=== PATIENT | female | born 1950 | race Caucasian/White ===

== ENCOUNTER → 2017-05-26 | Day surgery (SDC) | payer OTHER ==
--- OUTSIDE RECORDS SUMMARY | 2017-05-26 09:37 | XMS REPORT | Clinical Summary ---
:1950 Author Organization [facility] Address [address] [place] [address] Phone Care Team Providers Name Role Phone Unavailable Primary Care Provider Unavailable Allergies Active Allergy Reactions Severity Noted Date Comments Sumatriptan Succinate 05/01/2016 Morphine 05/01/2016 Current Medications Prescription Sig. Disp. Refills Start Date End Date Status Missing or Take 2.5 mg by mouth 2 Active Non-Formulary (two) times daily Medication eliquis . allopurinol (ZYLOPRIM) Take 100 mg by mouth Active 100 MG tablet daily. amLODIPine (NORVASC) Take 5 mg by mouth Active 10 MG tablet daily. thyroid, pork, 90 mg Take 30 mg by mouth Active Tab daily. imatinib (GLEEVEC) 100 Take 100 mg by mouth 3 Active MG tablet (three) times daily. Missing or Inject 1 mg Active Non-Formulary subcutaneously daily Medication victosa. omeprazole (PRILOSEC) Take 40 mg by mouth Active 40 MG capsule daily. phentermine 30 MG Take 30 mg by mouth Active capsule every morning termeric . lactobacillus Take 1 capsule by Active rhamnosus, GG, mouth daily. (CULTURELLE) 10 billion cell capsule HYDROcodone-acetaminop Take 1 tablet by mouth Active hen (NORCO 10-325) every 6 (six) hours as 10-325 mg per tablet needed for Pain. Active Problems Problem Noted Date Anemia associated with stage 3 chronic renal failure 05/30/2016 Encounters Date Type Specialty Care Team Description 07/14/2016 Procedure visit Oncology Chitra Andrea MD Anemia associated with Fawn Pretty RN stage 3 chronic renal failure (Primary Dx) 06/30/2016 Procedure visit Oncology Chitra Andrea MD Anemia associated with Fawn Pretty RN stage 3 chronic renal failure (Primary Dx) 06/16/2016 Procedure visit Oncology Chitra Andrea MD Anemia associated with Fawn Pretty RN stage 3 chronic renal failure (Primary Dx) 05/30/2016 Procedure visit Oncology Chitra Andrea MD Anemia associated with Alessandra Elder RN stage 3 chronic renal failure (Primary Dx) after 05/25/2016 Social History Tobacco Use Types Packs/Day Years Used Date Never Smoker Sex Assigned at Date Recorded Not on file Last Filed Vital Signs Vital Sign Reading Time Taken Blood Pressure 136/75 06/16/2016 9:54 AM CDT Pulse 64 06/16/2016 9:54 AM CDT Temperature 36.8 C (98.2 F) 06/16/2016 9:54 AM CDT Respiratory Rate 18 06/16/2016 9:54 AM CDT Oxygen Saturation - - Inhaled Oxygen Concentration - - Weight 81.6 kg (180 lb) 06/16/2016 9:54 AM CDT Height 167.6 cm (5' 6") 06/16/2016 9:54 AM CDT Body Mass Index 29.05 06/16/2016 9:54 AM CDT Plan of Treatment Health Maintenance Due Date Last Done Comments INFLUENZA VACCINE 11/23/2016 Results POCT-HEMATOCRIT (07/14/2016 9:31 AM)Only the most recent of4 resultswithin the time period is included. Component Value Ref Range POC-Hematocrit 32 (L)Comment: TESTED AT [address] 36 - 45 % [place] [address] Specimen Performing Laboratory Blood [address] [address] POCT-HEMOGLOBIN (07/14/2016 9:31 AM)Only the most recent of4 resultswithin the time period is included. Component Value Ref Range POC-Hemoglobin 10.9 (L)Comment: TESTED AT [address] 12.0 - 15.0 g/ dL [place] [address] Specimen [place] [address] Iron, TIBC, % sat. (without ferritin) (07/14/2016 9:30 AM)Only the most recent of2 resultswithin the time period is included. Component Value Ref Range Iron 78 40 - 160 ug/dL TIBC 253 250 - 450 ug/dL Iron % Saturation 31 20 - 55 % Specimen Performing Laboratory Blood [address] [address] Ferritin (07/14/2016 9:30 AM)Only the most recent of2 resultswithin the time period is included. Component Value Ref Range Ferritin 63 5 - 275 ng/mL Specimen Performing Laboratory Blood [address] [address] after 05/25/2016
--- OUTSIDE RECORDS SUMMARY | 2017-05-26 09:37 | XMS REPORT | Clinical Summary ---
:1950 Author Organization [facility] Address [address] [place] [address] Care Team Providers Name Role Phone LugoRahul hobson Cameron THOMAS Primary Care Provider Allergies Active Allergy Reactions Severity Noted Date Comments Sumatriptan Succinate 10/10/2015 HTN Sulfa (Sulfonamide Antibiotics) 12/04/2016 Current Medications Prescription Sig. Disp. Refills Start Date End Date Status allopurinol Take 100 mg 3 09/14/2015 Active (ZYLOPRIM) 100 MG by mouth once tablet daily. amLODIPine Take 5 mg by 3 09/14/2015 Active (NORVASC) 5 MG mouth once tablet daily. ELIQUIS 2.5 mg 09/11/2015 Active tablet NOVOTWIST 32 gauge 09/18/2015 Active x 1/5" needle ARMOUR THYROID 60 09/10/2015 Active mg tablet dicyclomine Take 1 120 capsule 11 12/04/2016 12/04/2017 Active (BENTYL) 10 MG capsule (10 capsule mg total) by mouth 4 (four) times a day before meals and nightly. imatinib (GLEEVEC) Take 3 270 tablet 3 05/13/2017 08/11/2017 Active 100 MG chemo tablets (300 tabletIndications: mg total) by Stromal tumor of mouth daily digestive system for 90 days. GLEEVEC 100 mg 09/13/2015 03/19/2017 Discontinued chemo tablet imatinib (GLEEVEC) Take 3 90 tablet 6 09/29/2016 10/29/2016 100 MG chemo tablets (300 tablet mg total) by mouth daily for 30 days. GLEEVEC 100 mg Take 3 90 tablet 2 03/19/2017 03/19/2017 Discontinued chemo tablet tablets (300 mg total) by mouth daily for 90 days. imatinib (GLEEVEC) Take 3 270 tablet 3 03/19/2017 05/13/2017 Discontinued 100 MG chemo tablets (300 tabletIndications: mg total) by Stromal tumor of mouth daily digestive system for 90 days. Active Problems Problem Noted Date Pain 12/01/2016 Epigastric pain 11/26/2015 Malignant GIST 10/10/2015 CKD (chronic kidney disease) 10/10/2015 Pulmonary nodule 10/10/2015 Encounters Date Type Specialty Care Team Description 05/19/2017 Telephone Oncology Nate Mitchell MD 05/13/2017 Orders Only Oncology Clarence Stromal tumor of DANTE Gatestennis player system 05/13/2017 Telephone Oncology Nate Mitchell MD 04/27/2017 Telephone Oncology Nate Mitchell MD 04/15/2017 Telephone Oncology Nate Mitchell MD 03/19/2017 Telephone Oncology David Morris RN 03/19/2017 Orders Only Oncology Shiv Kidd Stromal tumor of DANTE Hernandez digestive system (Primary Dx) 03/18/2017 Telephone Oncology Nate Mitchell MD 02/10/2017 Telephone Oncology Nate Mitchell MD 12/04/2016 Hospital Encounter Radiology Nate Mitchell MD gastrointestinal stromal tumor, unspecified site 12/04/2016 Office Visit Gastroenterology Kristofer, Lower abdominal pain Bhavesh Nieves MD (Primary Dx) 12/01/2016 Lab Lab Nate Mitchell MD gastrointestinal stromal tumor, unspecified site 12/01/2016 Office Visit Oncology Nate Mitchell Pulmonary nodule (Primary Dx); MD Nayan Malignant gastrointestinal stromal tumor, unspecified site; Epigastric pain; Stage 3 chronic kidney disease; Pain 12/01/2016 Orders Only Oncology Jia Wells, Malignant MA gastrointestinal stromal tumor, unspecified site (Primary Dx) 11/21/2016 Telephone Oncology David Morris RN 11/07/2016 Office Visit General Surgery Darby Gomez, Lower abdominal pain (Primary Dx) 09/29/2016 Orders Only Oncology Caridad Mix RN 09/29/2016 Telephone Oncology Nate Mitchell MD 09/29/2016 Telephone Oncology Nate Mitchell MD 08/18/2016 Telephone Oncology Nate Mitchell MD 07/10/2016 Telephone Oncology Nate Mitchell MD 06/16/2016 Telephone Oncology Nate Mitchell MD 06/13/2016 Refill Oncology Nate Mitchell MD after 05/25/2016 Social History Tobacco Use Types Packs/Day Years Used Date Never Smoker Alcohol Use Drinks/Week oz/Week Comments No Sex Assigned at Date Recorded Not on file Last Filed Vital Signs Vital Sign Reading Time Taken Blood Pressure 120/69 12/04/2016 11:38 AM CDT Pulse 79 12/04/2016 11:38 AM CDT Temperature 36.8 C (98.3 F) 12/01/2016 12:07 PM CDT Respiratory Rate - - Oxygen Saturation - - Inhaled Oxygen Concentration - - Weight 79.8 kg (176 lb) 12/04/2016 11:38 AM CDT Height 167.6 cm (5' 6") 12/04/2016 11:38 AM CDT Body Mass Index 28.41 12/04/2016 11:38 AM CDT Plan of Treatment Date Type Specialty Care Team Description 11/30/2017 Office Visit Oncology Nate Mitchell MD [address] [address] Health Maintenance Due Date Last Done Comments PAP SMEAR 1973 COLONOSCOPY 2002 MAMMOGRAM 2002 ZOSTER VACCINE 2012 INFLUENZA VACCINE 09/23/[address] Chest Wo Contrast (12/04/2016 2:08 PM) Specimen [place] [address] Narrative EXAMINATION: CT CHEST WO CONTRAST CLINICAL HISTORY: C49.A0 Gastrointestinal stromal tumorunspecified site, GIST TECHNIQUE: Multiple axial images of the chest were obtained without intravenous contrast. The lack of intravenous contrast reduces the sensitivity of detecting solid organ disease and evaluating vasculature. Sagittal and coronal computerized reformatted images were also obtained.Automatic exposure control or iterative reconstruction techniques used to reduce dose. COMPARISON: 11/10/2008 FINDINGS: 1.No significant mediastinal or hilar lymphadenopathy. No significant pleural or pericardial effusions. Postsurgical changes noted in the proximal stomach. Several renal lesions are noted, not well characterized without contrast. 2.A couple of stable subpleural nodules are again noted likely representing intraparenchymal nodes without significant change. Calcified granuloma also noted. No suspicious lung mass identified. Central airways are patent. IMPRESSION: 1.No evidence for pulmonary metastatic disease. [facility]-[id number] Procedure Note Hm Interface, Radiology Results Incoming - 12/04/2016 3:31 PM CDT EXAMINATION: CT CHEST WO CONTRAST CLINICAL HISTORY: C49.A0 Gastrointestinal stromal tumor unspecified site, GIST TECHNIQUE: Multiple axial images of the chest were obtained without intravenous contrast. The lack of intravenous contrast reduces the sensitivity of detecting solid organ disease and evaluating vasculature. Sagittal and coronal computerized reformatted images were also obtained.Automatic exposure control or iterative reconstruction techniques used to reduce dose. COMPARISON: 11/10/2008 FINDINGS: 1. No significant mediastinal or hilar lymphadenopathy. No significant pleural or pericardial effusions. Postsurgical changes noted in the proximal stomach. Several renal lesions are noted, not well characterized without contrast. 2. A couple of stable subpleural nodules are again noted likely representing intraparenchymal nodes without significant change. Calcified granuloma also noted. No suspicious lung mass identified. Central airways are patent. IMPRESSION: 1. No evidence for pulmonary metastatic disease. [facility]-[id number] Estimated GFR (12/01/2016 12:52 PM) Component Value Ref Range GFR Non Af Amer 18 (A) mL/min/1.73 m2 GFR Af Amer 22 (A) mL/min/1.73 m2 Comment: Chronic kidney disease: <60 mL/min/1.73m2 Kidney failure: <15 mL/min/1.73m2 The estimated GFR is calculated from the IDMS-traceable Modification of Diet in Renal Disease Equation. The accuracy of the calculation is poor when the creatinine is normal. Calculated values >90 mL/min/1.73m2 are not reported. This equation has not been validated in children (<18 years), women, the elderly (>70 years), or ethnic groups other than Caucasians and Americans. Specimen Performing Laboratory Plasma specimen [facility] DEPARTMENT OF PATHOLOGY AND GENOMIC MEDICINE [address] [place] [address] [place] [address] CBC with platelet and differential (12/01/2016 12:52 PM) Component Value Ref Range WBC 6.22 4.50 - 11.00 k/uL RBC 2.66 (L) 4.20 - 5.50 m/uL HGB 9.2 (L) 12.0 - 16.0 g/dL HCT 28.0 (L) 37.0 - 47.0 % MCV 105.3 (H) 82.0 - 100.0 fL MCH 34.6 (H) 27.0 - 34.0 pg MCHC 32.9 31.0 - 37.0 g/dL RDW - SD 55.1 (H) 37.0 - 55.0 fL MPV 10.7 8.8 - 13.2 fL Platelet count 241 150 - 400 k/uL Nucleated RBC 0.00 /100 WBC Neutrophils 54.0 39.0 - 69.0 % Lymphocytes 29.4 25.0 - 45.0 % Monocytes 10.0 0.0 - 10.0 % Eosinophils 5.0 0.0 - 5.0 % Basophils 1.4 (H) 0.0 - 1.0 % Immature granulocytes 0.2Comment: "Immature granulocytes" 0.0 - 1.0 % (promyelocytes, myelocytes, metamyelocytes) Specimen Performing Laboratory Blood [facility] DEPARTMENT OF PATHOLOGY AND GENOMIC MEDICINE [address] [place] [address] Lipase level (12/01/2016 12:52 PM) Component Value Ref Range Lipase 70 (H) 13 - 60 U/L Specimen Performing Laboratory Plasma specimen [facility] DEPARTMENT OF PATHOLOGY AND [address] [address] Amylase level (12/01/2016 12:52 PM) Component Value Ref Range Amylase 34 13 - 53 U/L Specimen Performing Laboratory Plasma specimen [facility] DEPARTMENT OF PATHOLOGY AND GENOMIC MEDICINE [address] [place] [address] Comprehensive metabolic panel (12/01/2016 12:52 PM) Component Value Ref Range Sodium 138 135 - 148 mEq/L Potassium 4.8 3.5 - 5.0 mEq/L Chloride 103 98 - 112 mEq/L CO2 20 (L) 24 - 31 mEq/L Anion gap 15 7 - 15 mEq/L Comment: Starting from May , anion gap calculation no longer incorporates potassium. Please note the change. BUN 46 (H) 8 - 23 mg/dL Creatinine 2.7 (H) 0.5 - 0.9 mg/dL Glucose 120 (H) 65 - 99 mg/dL Calcium 9.4 8.8 - 10.2 mg/dL Protein 6.7 6.3 - 8.3 g/dL Comment: Warren 4.6-7.0 g/dL 1 week 4.4-7.6 g/dL 7 months-1year5.1-7.3 g/dL 1-2 years5.6-7.5 g/dL >3 years6.0-8.0 g/dL 18-150 6.3-8.3 g/dL Albumin 3.8 3.5 - 5.0 g/dL A/G ratio 1.3 0.7 - 3.8 Alkaline phosphatase 57 35 - 104 U/L AST 17 10 - 35 U/L ALT 11 5 - 50 U/L Total bilirubin 0.4 0.0 - 1.2 mg/dL Specimen Performing Laboratory Plasma specimen [facility] DEPARTMENT OF PATHOLOGY AND GENOMIC MEDICINE [address] [place] [address] after 05/25/2016 Insurance Payer Benefit Plan / Group Subscriber ID Type Phone Address [employer] PPO OPEN CHOICE xxxxxxxxxx PPO Home: [id number] [phone] [place] [id number]
--- OUTSIDE RECORDS SUMMARY | 2017-05-26 09:37 | XMS REPORT ---
:1950 Author Organization [facility] Address [address] [place] [address] Dr. Dasilva [address] [place] [address] Care Team Providers Name Role Phone TY ZIEGLER TEDDY Unavailable Unavailable Problems This patient has no known problems. Allergies, Adverse Reactions, Alerts This patient has no known allergies or adverse reactions. Medications This patient has no known medications. Results Test Description Test Time Test Comments Text Results Atomic Results Result Comments FERRITIN 2016-07-14 11:31:00 Test Item Value Reference Range Comments FERRITIN (BEAKER) (test neka=144) 63 ng/mL 5-275 IRON, TIBC, % SAT. (WITHOUT FERRITIN)2016-07-14 11:11:00 Test Item Value Reference Range Comments IRON (BEAKER) (test mgue=522) 78 ug/dL 40-160 TOTAL IRON BINDING CAPACITY (BEAKER) (test 253 ug/dL 250-450 enui=653) IRON % SATURATION (2) (BEAKER) (test xeat=6076) 31 % 20-55 [id number] 09:37:00 Test Item Value Reference Range Comments POC-HEMATOCRIT (BEAKER) (test 32 % 36-45 [address] AT [address] jnrb=0272) [facility] [address] [id number] 09:37:00 Test Item Value Reference Range Comments POC-HEMOGLOBIN (BEAKER) 10.9 g/dL 12.0-15.0 [address] (test rfxm=9251) [facility] [address] [id number] 09:49:00 Test Item Value Reference Range Comments POC-HEMATOCRIT (BEAKER) (test 30 % 36-45 TESTED AT [address] rsnt=2126) [facility] [address] [id number] 09:49:00 Test Item Value Reference Range Comments POC-HEMOGLOBIN (BEAKER) 10.2 g/dL 12.0-15.[address] (test anjh=0998) [place] [id number] 12:15:00 Test Item Value Reference Range Comments FERRITIN (BEAKER) (test ydzs=117) 49 ng/mL 5-275 Effective 01/10/2014: Reference Range ChangeNew: Male 5-275 Previous: Male 22-322 Female 5-275 Female 10-291IRON, TIBC, % SAT. ( WITHOUT FERRITIN)2016-06-16 11:55:00 Test Item Value Reference Range Comments IRON (BEAKER) (test fbvq=624) 46 ug/dL 40-160 TOTAL IRON BINDING CAPACITY (BEAKER) (test 271 ug/dL 250-450 bcex=240) IRON % SATURATION (2) (BEAKER) (test xbmi=1914) 17 % 20-55 [id number] 10:00:00 Test Item Value Reference Range Comments POC-HEMATOCRIT (BEAKER) (test 32 % 36-45 TESTED AT [address] timy=3639) [place] [address] [id number] 10:00:00 Test Item Value Reference Range Comments POC-HEMOGLOBIN (BEAKER) 10.9 g/dL 12.0-15.[address] (test zedg=0900) [place] [address] [id number] 10:08:00 Test Item Value Reference Range Comments POC-HEMATOCRIT (BEAKER) (test 34 % 36-45 TESTED AT [address] zoik=5458) [place] [address] [id number] 10:08:00 Test Item Value Reference Range Comments POC-HEMOGLOBIN (BEAKER) 11.6 g/dL 12.0-15.[address] (test oubi=0406) [place] [address] [id number] 11:38:00 Test Item Value Reference Range Comments POC-HEMATOCRIT (BEAKER) (test 27 % 36-45 TESTED AT [address] azcw=7480) [place] [address] [id number] 11:38:00 Test Item Value Reference Range Comments POC-HEMOGLOBIN (BEAKER) 9.2 g/dL 12.0-15.0 [address] (test mjan=3503) [place] [address] [id number] 16:32:00 Test Item Value Reference Range Comments FERRITIN (BEAKER) (test vqif=684) 64 ng/mL 5-275 Effective 01/10/2014: Reference Range ChangeNew: Male 5-275 Previous: Male 22-322 Female 5-275 Female 10-291IRON, TIBC, % SAT. ( WITHOUT FERRITIN)2016-05-01 14:37:00 Test Item Value Reference Range Comments IRON (BEAKER) (test xvhw=982) 97 ug/dL 40-160 TOTAL IRON BINDING CAPACITY (BEAKER) (test 258 ug/dL 250-450 hpij=846) IRON % SATURATION (2) (BEAKER) (test dfqd=5695) 38 % 20-55 [id number] 09:55:00 Test Item Value Reference Range Comments POC-HEMATOCRIT (BEAKER) (test 30 % 36-45 TESTED AT [address] uqqx=4269) [place] [address] [id number] 09:55:00 Test Item Value Reference Range Comments POC-HEMOGLOBIN (BEAKER) 10.2 g/dL 12.0-15.0 [address] (test wopz=0573) [place] [address]

== ENCOUNTER 2021-12-31 19:18 | Inpatient (IN) | payer OTHER ==
--- OUTSIDE RECORDS SUMMARY | 2021-12-31 19:26 | XMS REPORT | Continuity of Care Document ---
:1950 Author Organization [facility] t Address [address] [place] [address] Care Team Providers Name Role Phone HUI KIRK Primary Care Physician Unavailable Sajan Araujo Attending Clinician Unavailable Ely Mcdowell Attending Clinician Unavailable Michael Malone MD Attending Clinician Laya Correia CPhT Attending Clinician Unavailable HUI KIRK Attending Clinician Unavailable Joe Fleming Attending Clinician Doctor Unassigned, [place] Attending Clinician Unavailable CARMINA BUTLER Attending Clinician Unavailable ERCLAIR_R Attending Clinician Unavailable KISHORE GUAMAN Attending Clinician Unavailable Alma Duke Attending Clinician TEDDY TY Attending Clinician Unavailable HUI KIRK Admitting Clinician Unavailable ERCLAIR_Trista Admitting Clinician Unavailable Payers Payer Name Policy Type Policy Effective Date Expiration Date Sour ce Number HUMANA MEDICARE 53 [id number] 2020 [facility]an 00:00:[address] [facility] MEDICARE NOVITAS [id number] [facility] MEDICARE NOVITAS MB [id number] [facility] MEDICARE NOVITAS MB [id number] [facility] MEDICARE NOVITAS MB [id number] [facility] HUMANA MEDICARE [id number] 2020 ADV 00:00:00 MEDICARE NOVITAS MB [id number] [facility] HUMANA MEDICARE C1 [id number] [facility] kieran - [facility] MEDICARE NOVITAS MB [id number] [facility] HUMANA MEDICARE C1 [id number] [facility] - [facility] HUMANA MEDICARE C1 [id number] [facility]an - [facility] HUMANA MEDICARE C1 [id number] [facility] k[facility]an - [facility] HUMANA MEDICARE C1 [id number] [facility] kieran - [facility] MEDICARE B-[place]: [id number] 2017 NOVITAS SOLUTIONS 00:00:00 HUMANA - GOLD [id number] PLUS (MEDICARE REPLACEMENT HMO) AETNA (MEDICARE [id number] 2019 REPLACEMENT HMO) 00:00:00 AETNA HMO POS [id number] 2015 2020 QPOS 00:00:00 00:00:00 Problems Condition Condition Condition Status Onset Resolution Last Treating Co mments Source Name Details Category Date Date Treatment Clinician Date [place]ol[place]o Choledocho Disease Active 2020-[address] lithiasis lithiasis 0-04 Luke s 00:00: Medical 00 Center Liver Liver Disease Active [facility] metastases metastases 10-03 st 00:00: Hospita 00 l Gastritis Gastritis Disease Active Met hodi 10-03 st 00:00: Hospita 00 l Pneumoniti Pneumoniti Disease Active M ethodi s s 10-03 st 00:00: Hospita 00 l Reflux Reflux Disease Active Methodi esophagiti esophagiti 10-19 st s s 00:00: Hospita 00 l Deep vein Deep vein Disease Active Met hodi thrombosis thrombosis 03-22 st (DVT) of (DVT) of 00:00: Hospit a proximal proximal 00 l lower lower extremity extremity Pain Pain Disease Active 2016-02 [facility] 0-09 [facility] 00:00: Hospita 00 l Anemia Anemia Disease Active [facility] associated associated 05-30 Calu kes with stage with stage 00:00: Me dical 3 chronic 3 chronic 00 Cent er renal renal failure failure 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 loss Medical (chronic) Center [id number] Body mass Problem Active Com mon index Spirit [BMI] - CHI 30.0-30.9, [facility] [id number] Other Problem Active Common obesity Spirit due to - CHI excess [facility] Chronic Anemia Problem Active Common renal associated Spirit failure with - CHI syndrome chronic renal [facility] failure, Medical unspecifie Center d stage [id number] Localized Problem Active Comm on osteoporos Spirit is without - CHI current [facility] al Medical fracture Center [id number] Vitamin D Problem Active Comm on deficiency Spirit - [facility] [id number] Hyperparat Problem Active Com mon hyroidism Spirit - [facility] [id number] GERD Problem Active Common without Spirit esophagiti - CHI [facility] Chronic Chronic Problem Active Common kidney kidney Spirit disease disease, - CHI stage 4 stage IV (severe) [facility] [id number] Essential Problem Active Comm on (primary) Spirit hypertensi - CHI on [facility] [id number] Irritable Problem Active Comm on bowel Spirit syndrome - CHI without [facility] diarrhea [facility] Anemia in Anemia in Problem Active Com mon chronic chronic Spirit kidney kidney - CHI disease disease [facility] Malignant Malignant Problem Active Com mon neoplasm neoplasm Spirit of body of of body of - CHI stomach stomach [facility] 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 chronic [facility] kidney Center disease [id number] Primary Problem Active Comm on osteoarthr Spirit itis of - CHI right knee [facility] Hypothyroi Hypothyroi Problem Active C ommon dism dism Spirit - [facility] [id number] Open-angle Problem Active Com mon glaucoma, Spirit mild - CHI stage, St unspecifie [facility] open-angle glaucoma type [id number] Arthrosis Problem Active Com mon of first Spirit carpometac - CHI arpal joint [facility] Chronic Other Problem Active Common pain chronic [facility] pain - [facility] [id number] Renal Problem Active Common cyst, left Spirit - [facility] [id number] History of Problem Active Co mmon DVT of Spirit lower - CHI extremity [facility] [id number] 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) [facility] [id number] Age-relate Problem Active Com mon d Spirit osteoporos - CHI is without [facility] pathologic [facility] fracture Allergies, Adverse Reactions, Alerts Allergy Allergy Status Severity Reaction(s) Onset Inactive Treating Comm ents Source Name Type Date Date Clinician Morphine Propensi Active Rash Univer s ty to 10-31 ity of adverse 00:00: [place] reaction Medical s Branch MORPHINE DRUG Active Rash Univers INGREDI 10-31 ity of 00:00: [place] 00 Medical Branch Sumatrip Propensi Active Hypertension Univers romero ty to 11-08 ity of adverse 00:: [place] reaction Medical s Branch SUMATRIP DRUG Active HYPERTENSION Un cl ROMERO INGREDI 11-08 ity of 00:00: [place] 00 Medical Branch Sulfa Propensi Active 2016-02 Methodi (Sulfona ty to 0-12 [facility] adverse 00:00: Hospita Antibiot reaction 00 l ics) s to drug SUMATRIP Allergy Active [facility] ROMERO 309 SUCCINAT 00:00: E 00 MORPHINE Allergy Active [facility] 05-01 00:00: 00 Sumatrip Propensi [facility]ero ty to 05-01 [facility] Succinat adverse 00:00: Medical e reaction 00 Center s Morphine Propensi Active [facility] ty to 05-01 [facility] adverse 00:00: Medical reaction 00 Center s Morphine Propensi Active Method i ty to 05-01 st adverse 00:00: Hospita reaction 00 l s to drug Sumatrip Propensi Active HTN Method i romero ty to 8 st Succinat adverse 00:00: Hospita e reaction 00 l s to drug sumatrip sumatrip Active Unknown Commo n romero romero [facility] morphine morphine Active Unknown Commo n [facility] Family History Family Member Diagnosis Comments Start Date Stop Date Source Natural father [facility] Natural [facility] Social History Social Habit Start Date Stop Date Quantity Comments Source History of Common [facility] - Tobacco Use [facility] Alcohol intake 2020-10-03 2020-10-03 Current [facility] 00:00:00 00:00:00 non-drinker of Hospital alcohol (finding) Tobacco use and 2017-11-30 2017-11-30 Smokeless tobacco [facility] exposure 00:00:00 00:00:00 non-user Hospital Sex Ass[birth year] At [birth year] [facility] 00:00:00 00:00:00 Hospital Smoking Status Start Date Stop Date Source Never Smoker [facility] Unknown if ever smoked [facility] Medications Ordered Filled Start Stop Current Ordering Indication Dosage Frequency Signature Comments Components Source Medication Medication Date Date Medication? Clinician (SIG) Name Name Amoxicillin Amoxicillin 202- No 1{table BID Amoxicilli -Pot -Pot 6-30 07-10 t} n-Pot Clavulanate Clavulanate 00:00: 00:00 Clavulanat 875-125 MG 875-125 MG 00 :00 e 875-125 MG Gleevec 100 Gleevec 100 2020-02 No 1{table QD Gleevec MG MG 1-19 t} 100 MG 00:00: 00 Gleevec 100 Gleevec 100 2020-02 No 1{table QD Gleevec MG MG 1-19 t} 100 MG 00:00: 00 Gleevec 100 Gleevec 100 2020-02 No 1{table QD Gleevec MG MG 1-19 t} 100 MG 00:00: 00 Gleevec 100 Gleevec 100 2020-02 No 1{table QD Gleevec MG MG 1-19 t} 100 MG 00:00: 00 Gleevec 100 Gleevec 100 2020-02 No 1{table QD Gleevec MG MG 1-19 t} 100 MG 00:00: 00 Gleevec 100 Gleevec 100 2020-02 No 1{table QD Gleevec MG MG 1-19 t} 100 MG 00:00: 00 Gleevec 100 Gleevec 100 2020-02 No 1{table QD Gleevec MG MG 1-19 t} 100 MG 00:00: 00 Gleevec 100 Gleevec 100 2020-02 No 1{table QD Gleevec MG MG 1-19 t} 100 MG 00:00: 00 Gleevec 100 Gleevec 100 2020-02 No 1{table QD Gleevec MG MG 1-19 t} 100 MG 00:00: 00 Gleevec 100 Gleevec 100 2020-02 No 1{table QD Gleevec MG MG 1-19 t} 100 MG 00:00: 00 Missing or 2020-02 Yes 2.5mg Q.5D Take 2.[address] Non-Formula 0-07 mg by [facility] ry 13:47: mouth 2 Medical Medication 35 (two) Center times daily eliquis . allopurinol 2020-02 Yes 100mg QD Take [address] (ZYLOPRIM) 0-07 mg by [facility] 100 MG 13:47: mouth Medical tablet 35 daily. [place] amLODIPine 2020-02 Yes 5mg QD Take [address] (NORVASC) 0-07 by mouth [facility] 10 MG 13:47: daily. Medical tablet 35 Center thyroid, 2020-02 Yes 30mg QD Take [address] pork, 90 mg 0-07 by mouth Luke s Tab 13:47: daily. Medical 35 Center imatinib 2020-02 Yes 100mg [id number] Take [address] (GLEEVEC) 0-07 [id number] mg by Chris es 100 MG 13:47: 3D mouth 3 Medical tablet 35 (three) Center times daily. Missing or 2020-02 Yes 1mg QD Inject [address] Non-Formula 0-07 mg [facility] ry 13:47: subcutaneo Medical Medication [address] victosa. omeprazole 2020-02 Yes 40mg QD Take [address] (PRILOSEC) 0-07 by mouth [facility] 40 MG 13:47: daily. Medical capsule 35 Center phentermine 2020-02 Yes 30mg QD Take [address] 30 MG 0-07 by mouth [facility] capsule 13:47: every Medical 35 morning Center termeric . lactobacill 2020-02 Yes 1{capsu QD Take [address] us 0-07 le} capsule by Lumemo rhamnosus, 13:47: mouth Medica l GG, 35 daily. Center ([facility] ) 10 billion cell capsule HYDROcodone 2020-02 Yes 1{tbl} Take [address] -acetaminop 0-07 tablet by Chris es hen (NORCO 13:47: mouth Medica l 10-325) 35 every 6 Center 10-325 mg (six) per tablet hours as needed for Pain. Mupirocin 2 Mupirocin 2 2020- No 1{appli BID Mupirocin % % 11-15 cation} 2 % 00:00: 00:00 00 :00 Mupirocin 2 Mupirocin 2 2020- No 1{appli BID Mupirocin % % 11-15 cation} 2 % 00:00: 00:00 00 :00 imatinib 2021- No [id number] 200mg QD Take 2 Methodi (Gleevec) 11-[address] 100 MG 00:00: 04:59 (200 mg Hospita chemo 00 :00 total) by l tablet mouth daily. Vibramycin Vibramycin 2020- No 1{capsu QD Vibramycin 100 MG 100 MG 11-08 le} 100 MG 00:00: 00:00 00 :00 traMADol traMADol 2020- No 1{table QD traMADol HCl 50 MG HCl 50 MG 11-08 t_as_ne HCl 50 MG 00:00: 00:00 eded} 00 :00 amoxicillin 2020- No 1{tbl} 1 tablet, Univers -clavulanat 10-31 Oral, ity of e 18:00: 17:17 ONCE, 1 [place] (AUGMENTIN) 00 :00 dose, Wed Med ical 875-125 mg 10/31/20 at Bran ch per tablet 1300, 1 tablet Routine
Reason for Anti-Infec tive: Empiric Non-Surgic al Prophylaxi s
Durat ion of therapy: 72 hours amoxicillin 2020- No 1{tbl} 1 tablet, Univers -clavulanat 10-31 Oral, ity of e 18:00: 17:17 ONCE, 1 [place] (AUGMENTIN) 00 :00 dose, Wed Med ical 875-125 mg 10/31/20 at Bran ch per tablet 1300, 1 tablet Routine
Reason for Anti-Infec tive: Empiric Non-Surgic al Prophylaxi s
Durat ion of therapy: 72 hours amoxicillin 2020- No [id number] 1{tbl} Take 1 Univers -clavulanat 10-31 tablet by it y of e 875-125 00:00: 04:59 mouth [place] mg per 00 :00 every 12 Medical tablet (twelve) Branch hours for 7 days. amoxicillin 2020- No [id number] 1{tbl} Take 1 Univers -clavulanat 10-31 tablet by it y of e 875-125 00:00: 04:59 mouth [place] mg per 00 :00 every 12 Medical tablet (twelve) Branch hours for 7 days. Bupivicaine Bupivicaine No Common Keenes Keenes 10-25 Spirit 00:00: - CHI 00 [facility] Depo-Medrol Depo-Medrol No 40mg Common (Methylpred (Methylpred 10-25 S pirit nisolone) nisolone) 00:00: - C HI 40mg 40mg 00 [facility] Bupivicaine Bupivicaine No 2.5mg Common Keenes Keenes 10-25 Spirit 00:00: - CHI 00 [facility] Depo-Medrol Depo-Medrol 2021-0 No 40mg Common (Methylpred (Methylpred 9-02 S pirit nisolone) nisolone) 00:00: - C HI 40mg 40mg 00 [facility] Bupivicaine Bupivicaine 2020-0 No 2.5mg Common Keenes Keenes 10-25 Spirit 00:00: - CHI 00 [facility] Depo-Medrol Depo-Medrol 2020-0 No 40mg Common (Methylpred (Methylpred 9-02 S pirit nisolone) nisolone) 00:00: - C HI 40mg 40mg 00 [facility] Bupivicaine Bupivicaine 2020-0 No 2.5mg Common Keenes Keenes 10-25 Spirit 00:00: - CHI 00 [facility] Depo-Medrol Depo-Medrol 2020-0 No 40mg Common (Methylpred (Methylpred 9-02 S pirit nisolone) nisolone) 00:00: - C HI 40mg 40mg 00 [facility] Bupivicaine Bupivicaine 2020-0 No 2.5mg Common Keenes Keenes 10-25 Spirit 00:00: - CHI 00 [facility] Depo-Medrol Depo-Medrol 2020-0 No 40mg Common (Methylpred (Methylpred 9-02 S pirit nisolone) nisolone) 00:00: - C HI 40mg 40mg 00 [facility] Bupivicaine Bupivicaine 2020-0 No 2.5mg Common Keenes Keenes 10-25 Spirit 00:00: - CHI 00 [facility] Depo-Medrol Depo-Medrol 2020-0 No 40mg Common (Methylpred (Methylpred 9-02 S pirit nisolone) nisolone) 00:00: - C HI 40mg 40mg 00 [facility] Bupivicaine Bupivicaine 2020-0 No 2.5mg Common Keenes Keenes 10-25 Spirit 00:00: - CHI 00 [facility] Depo-Medrol Depo-Medrol 2020-0 No 40mg Common (Methylpred (Methylpred 9-02 S pirit nisolone) nisolone) 00:00: - C HI 40mg 40mg 00 [facility] Bupivicaine Bupivicaine 2020-0 No 2.5mg Common Keenes Keenes 10-25 Spirit 00:00: - CHI 00 [facility] Depo-Medrol Depo-Medrol 2020-0 No 40mg Common (Methylpred (Methylpred 9-02 S pirit nisolone) nisolone) 00:00: - C HI 40mg 40mg 00 [facility] Bupivicaine Bupivicaine 2020-0 No 2.5mg Common Keenes Keenes 10-25 Spirit 00:00: - CHI 00 [facility] Depo-Medrol Depo-Medrol 2020-0 No 40mg Common (Methylpred (Methylpred 9-02 S pirit nisolone) nisolone) 00:00: - C HI 40mg 40mg 00 [facility] Bupivicaine Bupivicaine 2020-0 No 2.5mg Common Keenes Keenes 10-25 Spirit 00:00: - CHI 00 [facility] Depo-Medrol Depo-Medrol 2020-0 No 40mg Common (Methylpred (Methylpred 9-02 S pirit nisolone) nisolone) 00:00: - C HI 40mg 40mg 00 [facility] Bupivicaine Bupivicaine 2020-0 No 2.5mg Common Keenes Keenes 10-25 Spirit 00:00: - CHI 00 [facility] Depo-Medrol Depo-Medrol 2020-0 No 40mg Common (Methylpred (Methylpred 9-02 S pirit nisolone) nisolone) 00:00: - C HI 40mg 40mg 00 [facility] Diclofenac Diclofenac 2020-0 2020- No Diclofenac Sodium 1 % Sodium 1 % 10-25 Sodium 1 % 00:00: 00:00 00 :00 Diclofenac Diclofenac 2020-0 2020- No Diclofenac Sodium 1 % Sodium 1 % 10-25 Sodium 1 % 00:00: 00:00 00 :00 Diclofenac Diclofenac 2020-0 2020- No Diclofenac Sodium 1 % Sodium 1 % 10-25 Sodium 1 % 00:00: 00:00 00 :00 Diclofenac Diclofenac 2020-0 2020- No Diclofenac Sodium 1 % Sodium 1 % 10-25 Sodium 1 % 00:00: 00:00 00 :00 Diclofenac Diclofenac 2020-0 202- No Diclofenac Sodium 1 % Sodium 1 % 10-25 10- Sodium 1 % 00:00: 00:00 00 :00 Diclofenac Diclofenac 2020-0 2020- No Diclofenac Sodium 1 % Sodium 1 % 10-25 Sodium 1 % 00:00: 00:00 00 :00 Diclofenac Diclofenac 2020-0 2020- No Diclofenac Sodium 1 % Sodium 1 % 10-25- Sodium 1 % 00:00: 00:00 00 :00 Bupivicaine Bupivicaine 2020-0 No Common [place] Keenes 7-22 Spirit 00:00: - CHI 00 [facility] Kenalog Kenalog 2020-0 No 40mg Common (Triamcinol (Triamcinol 7-22 S pirit one) one) 00:00: - CHI 00 [facility] Bupivicaine Bupivicaine 2020-0 No 2.5mg Common Keenes Keenes 7-22 Spirit 00:00: - CHI 00 [facility] Kenalog Kenalog 2020-0 No 40mg Common (Triamcinol (Triamcinol 7-22 S pirit one) one) 00:00: - CHI 00 [facility] Bupivicaine Bupivicaine 2020-0 No 2.5mg Common Keenes Keenes 7-22 Spirit 00:00: - CHI 00 [facility] Kenalog Kenalog 2020-0 No 40mg Common (Triamcinol (Triamcinol 7-22 S pirit one) one) 00:00: - CHI 00 [facility] Bupivicaine Bupivicaine 2020-0 No 2.5mg Common Keenes Keenes 7-22 Spirit 00:00: - CHI 00 [facility] Kenalog Kenalog 2020-0 No 40mg Common (Triamcinol (Triamcinol 7-22 S pirit one) one) 00:00: - CHI 00 [facility] Bupivicaine Bupivicaine 2020-0 No 2.5mg Common Keenes Keenes 7-22 Spirit 00:00: - CHI 00 [facility] Kenalog Kenalog 2020-0 No 40mg Common (Triamcinol (Triamcinol 7-22 S pirit one) one) 00:00: - CHI 00 [facility] Bupivicaine Bupivicaine 0 No 2.5mg Common Keenes Keenes 7-22 Spirit 00:00: - CHI 00 [facility] Kenalog Kenalog 0 No 40mg Common (Triamcinol (Triamcinol 7-22 S pirit one) one) 00:00: - CHI 00 [facility] Bupivicaine Bupivicaine 2020-0 No 2.5mg Common Keenes Keenes 7-22 Spirit 00:00: - CHI 00 [facility] Kenalog Kenalog 0 No 40mg Common (Triamcinol (Triamcinol 7-22 S pirit one) one) 00:00: - CHI 00 [facility] Bupivicaine Bupivicaine 0 No 2.5mg Common Keenes Keenes 7-22 Spirit 00:00: - CHI 00 [facility] Kenalog Kenalog 0 No 40mg Common (Triamcinol (Triamcinol 7-22 S pirit one) one) 00:00: - CHI 00 [facility] Bupivicaine Bupivicaine 0 No 2.5mg Common Keenes Keenes 7-22 Spirit 00:00: - CHI 00 [facility] Kenalog Kenalog 0 No 40mg Common (Triamcinol (Triamcinol 7-22 S pirit one) one) 00:00: - CHI 00 [facility] Bupivicaine Bupivicaine 2020-0 No 2.5mg Common Keenes Keenes 7-22 Spirit 00:00: - CHI 00 [facility] Kenalog Kenalog 0 No 40mg Common (Triamcinol (Triamcinol 7-22 S pirit one) one) 00:00: - CHI 00 [facility] Bupivicaine Bupivicaine 2020-0 No 2.5mg Common Keenes Keenes 7-22 Spirit 00:00: - CHI 00 [facility] Kenalog Kenalog 2020-0 No 40mg Common (Triamcinol (Triamcinol 7-22 S pirit one) one) 00:00: - CHI 00 [facility] gabapentin 2020-0 Yes 300mg [id number] Take 1 [facility]i (NEURONTIN) 7-[id number] 300 mg 00:00: 3D (300 mg Hospita capsule 00 total) by l mouth 3 (three) times a day. Nitrofurant 2019- No [id number] 100mg Take 1 Univers oin&Nit. 16 24 capsule by ity Macrocryst 00:00: 04:59 mouth [place] 100 mg 00 :00 daily for Medical capsule 7 days. Branch allopurinol Yes 100mg QD Take 100 M ethodi (ZYLOPRIM) 7-[address] 100 MG 00:00: mouth once Hospi ta tablet 00 daily. l amLODIPine Yes 5mg QD Take 5 mg Me thodi (NORVASC) 5 7-[address] MG tablet 00:00: once Hospita 00 daily. l No known No Univers medications [facility] No known No Univers medications [facility] Synthroid Synthroid No QD Synthroid 125 MCG 125 MCG 125 MCG OneTouch OneTouch No OneTouch Ultra Test Ultra Test Ultra Test - - - Sodium Sodium No 1{table BID Sodium Bicarbonate Bicarbonate t} Bicarbonat 325 MG 325 MG e 325 MG Gabapentin Gabapentin No Gabapentin 300 MG 300 MG 300 MG Allopurinol Allopurinol No 1{table QD Allopurino 100 MG 100 MG t} l 100 MG Imatinib Imatinib No 1{table BID Imatinib Mesylate Mesylate t_with_ Mesylate 100 MG 100 MG a_meal_ 100 MG and_a_l arge_gl ass_of_ water} Levothyroxi Levothyroxi No Levothyrox ne Sodium ne Sodium ine Sodium 125 MCG 125 MCG 125 MCG amLODIPine amLODIPine No amLODIPine Besylate 5 Besylate 5 Besylate 5 MG MG MG Omeprazole Omeprazole No 1{capsu QD Omeprazole 20 MG 20 MG le} 20 MG Synthroid Synthroid No QD Synthroid 125 MCG 125 MCG 125 MCG OneTouch OneTouch No OneTouch Ultra Test Ultra Test Ultra Test - - - Sodium Sodium No 1{table BID Sodium Bicarbonate Bicarbonate t} Bicarbonat 325 MG 325 MG e 325 MG Gabapentin Gabapentin No Gabapentin 300 MG 300 MG 300 MG Allopurinol Allopurinol No 1{table QD Allopurino 100 MG 100 MG t} l 100 MG Imatinib Imatinib No 1{table BID Imatinib Mesylate Mesylate t_with_ Mesylate 100 MG 100 MG a_meal_ 100 MG and_a_l arge_gl ass_of_ water} Levothyroxi Levothyroxi No Levothyrox ne Sodium ne Sodium ine Sodium 125 MCG 125 MCG 125 MCG amLODIPine amLODIPine No amLODIPine Besylate 5 Besylate 5 Besylate 5 MG MG MG Omeprazole Omeprazole No 1{capsu QD Omeprazole 20 MG 20 MG le} 20 MG Synthroid Synthroid No QD Synthroid 125 MCG 125 MCG 125 MCG OneTouch OneTouch No OneTouch Ultra Test Ultra Test Ultra Test - - - Sodium Sodium No 1{table BID Sodium Bicarbonate Bicarbonate t} Bicarbonat 325 MG 325 MG e 325 MG Gabapentin Gabapentin No Gabapentin 300 MG 300 MG 300 MG Allopurinol Allopurinol No 1{table QD Allopurino 100 MG 100 MG t} l 100 MG Imatinib Imatinib No 1{table BID Imatinib Mesylate Mesylate t_with_ Mesylate 100 MG 100 MG a_meal_ 100 MG and_a_l arge_gl ass_of_ water} Levothyroxi Levothyroxi No Levothyrox ne Sodium ne Sodium ine Sodium 125 MCG 125 MCG 125 MCG amLODIPine amLODIPine No amLODIPine Besylate 5 Besylate 5 Besylate 5 MG MG MG Omeprazole Omeprazole No 1{capsu QD Omeprazole 20 MG 20 MG le} 20 MG OneTouch OneTouch No OneTouch Ultra Test Ultra Test Ultra Test - - - Allopurinol Allopurinol No 1{table QD Allopurino 100 MG 100 MG t} l 100 MG Sodium Sodium No 1{table BID Sodium Bicarbonate Bicarbonate t} Bicarbonat 325 MG 325 MG e 325 MG Levothyroxi Levothyroxi No Levothyrox ne Sodium ne Sodium ine Sodium 125 MCG 125 MCG 125 MCG Synthroid Synthroid No QD Synthroid 125 MCG 125 MCG 125 MCG Imatinib Imatinib No 1{table BID Imatinib Mesylate Mesylate t_with_ Mesylate 100 MG 100 MG a_meal_ 100 MG and_a_l arge_gl ass_of_ water} Omeprazole Omeprazole No 1{capsu QD Omeprazole 20 MG 20 MG le} 20 MG Gabapentin Gabapentin No Gabapentin 300 MG 300 MG 300 MG amLODIPine amLODIPine No amLODIPine Besylate 5 Besylate 5 Besylate 5 MG MG MG Sodium Sodium No 1{table BID Sodium Bicarbonate Bicarbonate t} Bicarbonat 325 MG 325 MG e 325 MG Levothyroxi Levothyroxi No Levothyrox ne Sodium ne Sodium ine Sodium 125 MCG 125 MCG 125 MCG Synthroid Synthroid No QD Synthroid 125 MCG 125 MCG 125 MCG Allopurinol Allopurinol No 1{table QD Allopurino 100 MG 100 MG t} l 100 MG Imatinib Imatinib No 1{table BID Imatinib Mesylate Mesylate t_with_ Mesylate 100 MG 100 MG a_meal_ 100 MG and_a_l arge_gl ass_of_ water} Gabapentin Gabapentin No Gabapentin 300 MG 300 MG 300 MG traMADol traMADol No 1{table QD traMADol HCl 50 MG HCl 50 MG t_as_ne HCl 50 MG eded} OneTouch OneTouch No OneTouch Ultra Test Ultra Test Ultra Test - - - Vibramycin Vibramycin No 1{capsu BID Vibramycin 100 MG 100 MG le} 100 MG amLODIPine amLODIPine No amLODIPine Besylate 5 Besylate 5 Besylate 5 MG MG MG Omeprazole Omeprazole No 1{capsu QD Omeprazole 20 MG 20 MG le} 20 MG Sodium Sodium No 1{table BID Sodium Bicarbonate Bicarbonate t} Bicarbonat 325 MG 325 MG e 325 MG Levothyroxi Levothyroxi No Levothyrox ne Sodium ne Sodium ine Sodium 125 MCG 125 MCG 125 MCG Synthroid Synthroid No QD Synthroid 125 MCG 125 MCG 125 MCG Allopurinol Allopurinol No 1{table QD Allopurino 100 MG 100 MG t} l 100 MG Imatinib Imatinib No 1{table BID Imatinib Mesylate Mesylate t_with_ Mesylate 100 MG 100 MG a_meal_ 100 MG and_a_l arge_gl ass_of_ water} Gabapentin Gabapentin No Gabapentin 300 MG 300 MG 300 MG traMADol traMADol No 1{table QD traMADol HCl 50 MG HCl 50 MG t_as_ne HCl 50 MG eded} OneTouch OneTouch No OneTouch Ultra Test Ultra Test Ultra Test - - - Vibramycin Vibramycin No 1{capsu BID Vibramycin 100 MG 100 MG le} 100 MG amLODIPine amLODIPine No amLODIPine Besylate 5 Besylate 5 Besylate 5 MG MG MG Omeprazole Omeprazole No 1{capsu QD Omeprazole 20 MG 20 MG le} 20 MG Levothyroxi Levothyroxi No Levothyrox ne Sodium ne Sodium ine Sodium 125 MCG 125 MCG 125 MCG Synthroid Synthroid No QD Synthroid 125 MCG 125 MCG 125 MCG amLODIPine amLODIPine No amLODIPine Besylate 5 Besylate 5 Besylate 5 MG MG MG Imatinib Imatinib No 1{table BID Imatinib Mesylate Mesylate t_with_ Mesylate 100 MG 100 MG a_meal_ 100 MG and_a_l arge_gl ass_of_ water} Sodium Sodium No 1{table BID Sodium Bicarbonate Bicarbonate t} Bicarbonat 325 MG 325 MG e 325 MG OneTouch OneTouch No OneTouch Ultra Test Ultra Test Ultra Test - - - Vibramycin Vibramycin No 1{capsu BID Vibramycin 100 MG 100 MG le} 100 MG Gabapentin Gabapentin No Gabapentin 300 MG 300 MG 300 MG traMADol traMADol No 1{table QD traMADol HCl 50 MG HCl 50 MG t_as_ne HCl 50 MG eded} Omeprazole Omeprazole No 1{capsu QD Omeprazole 20 MG 20 MG le} 20 MG Allopurinol Allopurinol No 1{table QD Allopurino 100 MG 100 MG t} l 100 MG Synthroid Synthroid No QD Synthroid 125 MCG 125 MCG 125 MCG amLODIPine amLODIPine No 1{table QD amLODIPine Besylate 5 Besylate 5 t} Besylate 5 MG MG MG Synthroid Synthroid No QD Synthroid 125 MCG 125 MCG 125 MCG amLODIPine amLODIPine No 1{table QD amLODIPine Besylate 5 Besylate 5 t} Besylate 5 MG MG MG Synthroid Synthroid No QD Synthroid 125 MCG 125 MCG 125 MCG amLODIPine amLODIPine No 1{table QD amLODIPine Besylate 10 Besylate 10 t} Besylate MG MG 10 MG Ferrous Ferrous No Ferrous Sulfate 325 Sulfate 325 Sulfate (65 Fe) MG (65 Fe) MG 325 (65 Fe) MG Omeprazole Omeprazole No Omeprazole 40 MG 40 MG 40 MG Synthroid Synthroid No QD Synthroid 125 MCG 125 MCG 125 MCG Allopurinol Allopurinol No Allopurino 100 MG 100 MG l 100 MG Sodium Sodium No Sodium Bicarbonate Bicarbonate Bicarbonat 650 MG 650 MG e 650 MG amLODIPine amLODIPine No 1{table QD amLODIPine Besylate 5 Besylate 5 t} Besylate 5 MG MG MG Omeprazole Omeprazole No Omeprazole 40 MG 40 MG 40 MG Sodium Sodium No Sodium Bicarbonate Bicarbonate Bicarbonat 650 MG 650 MG e 650 MG Tradjenta 5 Tradjenta 5 No 1{table QD Tradjenta MG MG t} 5 MG Allopurinol Allopurinol No Allopurino 100 MG 100 MG l 100 MG Ferrous Ferrous No Ferrous Sulfate 325 Sulfate 325 Sulfate (65 Fe) MG (65 Fe) MG 325 (65 Fe) MG Synthroid Synthroid No QD Synthroid 150 MCG 150 MCG 150 MCG amLODIPine amLODIPine No 1{table QD amLODIPine Besylate 5 Besylate 5 t} Besylate 5 MG MG MG Sodium Sodium No Sodium Bicarbonate Bicarbonate Bicarbonat 650 MG 650 MG e 650 MG Allopurinol Allopurinol No Allopurino 100 MG 100 MG l 100 MG amLODIPine amLODIPine No amLODIPine Besylate 5 Besylate 5 Besylate 5 MG MG MG Diclofenac Diclofenac No Diclofenac Sodium 1 % Sodium 1 % Sodium 1 % amLODIPine amLODIPine No 1{table QD amLODIPine Besylate 10 Besylate 10 t} Besylate MG MG 10 MG Ferrous Ferrous No Ferrous Sulfate 325 Sulfate 325 Sulfate (65 Fe) MG (65 Fe) MG 325 (65 Fe) MG Omeprazole Omeprazole No Omeprazole 40 MG 40 MG 40 MG Synthroid Synthroid No QD Synthroid 137 MCG 137 MCG 137 MCG Ferrous Ferrous No Ferrous Sulfate 325 Sulfate 325 Sulfate (65 Fe) MG (65 Fe) MG 325 (65 Fe) MG Allopurinol Allopurinol No Allopurino 100 MG 100 MG l 100 MG Diclofenac Diclofenac No Diclofenac Sodium 1 % Sodium 1 % Sodium 1 % Omeprazole Omeprazole No Omeprazole 40 MG 40 MG 40 MG Synthroid Synthroid No QD Synthroid 137 MCG 137 MCG 137 MCG Sodium Sodium No Sodium Bicarbonate Bicarbonate Bicarbonat 650 MG 650 MG e 650 MG amLODIPine amLODIPine No amLODIPine Besylate 10 Besylate 10 Besylate MG MG 10 MG amLODIPine amLODIPine No amLODIPine Besylate 5 Besylate 5 Besylate 5 MG MG MG Ferrous Ferrous No Ferrous Sulfate 325 Sulfate 325 Sulfate (65 Fe) MG (65 Fe) MG 325 (65 Fe) MG Allopurinol Allopurinol No Allopurino 100 MG 100 MG l 100 MG Diclofenac Diclofenac No Diclofenac Sodium 1 % Sodium 1 % Sodium 1 % Omeprazole Omeprazole No Omeprazole 40 MG 40 MG 40 MG Synthroid Synthroid No QD Synthroid 137 MCG 137 MCG 137 MCG Sodium Sodium No Sodium Bicarbonate Bicarbonate Bicarbonat 650 MG 650 MG e 650 MG amLODIPine amLODIPine No amLODIPine Besylate 10 Besylate 10 Besylate MG MG 10 MG amLODIPine amLODIPine No amLODIPine Besylate 5 Besylate 5 Besylate 5 MG MG MG amLODIPine amLODIPine No amLODIPine Besylate 10 Besylate 10 Besylate MG MG 10 MG Allopurinol Allopurinol No Allopurino 100 MG 100 MG l 100 MG Omeprazole Omeprazole No Omeprazole 40 MG 40 MG 40 MG Ferrous Ferrous No Ferrous Sulfate 325 Sulfate 325 Sulfate (65 Fe) MG (65 Fe) MG 325 (65 Fe) MG Synthroid Synthroid No QD Synthroid 137 MCG 137 MCG 137 MCG amLODIPine amLODIPine No amLODIPine Besylate 5 Besylate 5 Besylate 5 MG MG MG Diclofenac Diclofenac No Diclofenac Sodium 1 % Sodium 1 % Sodium 1 % Sodium Sodium No Sodium Bicarbonate Bicarbonate Bicarbonat 650 MG 650 MG e 650 MG amLODIPine amLODIPine No amLODIPine Besylate 10 Besylate 10 Besylate MG MG 10 MG Synthroid Synthroid No QD Synthroid 137 MCG 137 MCG 137 MCG Ferrous Ferrous No Ferrous Sulfate 325 Sulfate 325 Sulfate (65 Fe) MG (65 Fe) MG 325 (65 Fe) MG Diclofenac Diclofenac No Diclofenac Sodium 1 % Sodium 1 % Sodium 1 % Sodium Sodium No Sodium Bicarbonate Bicarbonate Bicarbonat 650 MG 650 MG e 650 MG amLODIPine amLODIPine No amLODIPine Besylate 5 Besylate 5 Besylate 5 MG MG MG Allopurinol Allopurinol No QD Allopurino 100 MG 100 MG l 100 MG Omeprazole Omeprazole No Omeprazole 40 MG 40 MG 40 MG amLODIPine amLODIPine No amLODIPine Besylate 10 Besylate 10 Besylate MG MG 10 MG Sodium Sodium No Sodium Bicarbonate Bicarbonate Bicarbonat 650 MG 650 MG e 650 MG Synthroid Synthroid No QD Synthroid 137 MCG 137 MCG 137 MCG Ferrous Ferrous No Ferrous Sulfate 325 Sulfate 325 Sulfate (65 Fe) MG (65 Fe) MG 325 (65 Fe) MG Diclofenac Diclofenac No Diclofenac Sodium 1 % Sodium 1 % Sodium 1 % amLODIPine amLODIPine No amLODIPine Besylate 5 Besylate 5 Besylate 5 MG MG MG Allopurinol Allopurinol No QD Allopurino 100 MG 100 MG l 100 MG Omeprazole Omeprazole No Omeprazole 40 MG 40 MG 40 MG amLODIPine amLODIPine No amLODIPine Besylate 10 Besylate 10 Besylate MG MG 10 MG Synthroid Synthroid No QD Synthroid 137 MCG 137 MCG 137 MCG Ferrous Ferrous No Ferrous Sulfate 325 Sulfate 325 Sulfate (65 Fe) MG (65 Fe) MG 325 (65 Fe) MG Diclofenac Diclofenac No Diclofenac Sodium 1 % Sodium 1 % Sodium 1 % Sodium Sodium No Sodium Bicarbonate Bicarbonate Bicarbonat 650 MG 650 MG e 650 MG amLODIPine amLODIPine No amLODIPine Besylate 5 Besylate 5 Besylate 5 MG MG MG Allopurinol Allopurinol No QD Allopurino 100 MG 100 MG l 100 MG Omeprazole Omeprazole No Omeprazole 40 MG 40 MG 40 MG amLODIPine amLODIPine No amLODIPine Besylate 10 Besylate 10 Besylate MG MG 10 MG Synthroid Synthroid No QD Synthroid 137 MCG 137 MCG 137 MCG Ferrous Ferrous No Ferrous Sulfate 325 Sulfate 325 Sulfate (65 Fe) MG (65 Fe) MG 325 (65 Fe) MG Diclofenac Diclofenac No Diclofenac Sodium 1 % Sodium 1 % Sodium 1 % Sodium Sodium No Sodium Bicarbonate Bicarbonate Bicarbonat 650 MG 650 MG e 650 MG amLODIPine amLODIPine No amLODIPine Besylate 5 Besylate 5 Besylate 5 MG MG MG Allopurinol Allopurinol No QD Allopurino 100 MG 100 MG l 100 MG Omeprazole Omeprazole No Omeprazole 40 MG 40 MG 40 MG amLODIPine amLODIPine No 1{table QD amLODIPine Besylate 10 Besylate 10 t} Besylate MG MG 10 MG Synthroid Synthroid No QD Synthroid 137 MCG 137 MCG 137 MCG amLODIPine amLODIPine No 1{table QD amLODIPine Besylate 10 Besylate 10 t} Besylate MG MG 10 MG Synthroid Synthroid No QD Synthroid 137 MCG 137 MCG 137 MCG amLODIPine amLODIPine No 1{table QD amLODIPine Besylate 10 Besylate 10 t} Besylate MG MG 10 MG Synthroid Synthroid No QD Synthroid 137 MCG 137 MCG 137 MCG Synthroid Synthroid No QD Synthroid 125 MCG 125 MCG 125 MCG OneTouch OneTouch No OneTouch Ultra Test Ultra Test Ultra Test - - - Sodium Sodium No 1{table BID Sodium Bicarbonate Bicarbonate t} Bicarbonat 325 MG 325 MG e 325 MG Gabapentin Gabapentin No Gabapentin 300 MG 300 MG 300 MG Allopurinol Allopurinol No 1{table QD Allopurino 100 MG 100 MG t} l 100 MG Imatinib Imatinib No 1{table BID Imatinib Mesylate Mesylate t_with_ Mesylate 100 MG 100 MG a_meal_ 100 MG and_a_l arge_gl ass_of_ water} Levothyroxi Levothyroxi No Levothyrox ne Sodium ne Sodium ine Sodium 125 MCG 125 MCG 125 MCG amLODIPine amLODIPine No amLODIPine Besylate 5 Besylate 5 Besylate 5 MG MG MG Omeprazole Omeprazole No 1{capsu QD Omeprazole 20 MG 20 MG le} 20 MG Immunizations Ordered Filled Immunization Date Status Comments [facility] e Immunization Name Name Prevnar 20 (PCV20) Prevnar 20 (PCV20) 2021-10-10 [facility] Prevnar 20 (PCV20) Prevnar 20 (PCV20) 2021-10-10 [facility] 10:09[facility]00 [facility] Prevnar 20 (PCV20) Prevnar 20 (PCV20) 2021-10-10 [facility] 10:09[facility]00 [facility] Boostrix (Tdap) Boostrix (Tdap) 2020-11-13 [facility]00 [facility] Boostrix (Tdap) Boostrix (Tdap) 2020-11-13 [facility]00 [facility] Boostrix (Tdap) Boostrix (Tdap) 2020-11-13 [facility]:11[facility]00 [facility] Boostrix (Tdap) Boostrix (Tdap) 2020-11-13 [facility]:11[facility]00 [facility] Boostrix (Tdap) Boostrix (Tdap) 2020-11-13 [facility]:11[facility]00 [facility] Boostrix (Tdap) Boostrix (Tdap) 2020-11-13 [facility]:11[facility]00 [facility] Boostrix (Tdap) Boostrix (Tdap) 2020-11-13 [facility]:11[facility]00 [facility] Boostrix (Tdap) Boostrix (Tdap) 2020-11-13 [facility]:11[facility]00 [facility] Boostrix (Tdap) Boostrix (Tdap) 2020-11-13 [facility]:11[facility]00 [facility] Boostrix (Tdap) Boostrix (Tdap) 2020-11-13 Completed [facility] - 11:11:00 [facility] Boostrix (Tdap) Boostrix (Tdap) 2020-11-13 Completed [facility] - 11:11:00 [facility] Boostrix (Tdap) Boostrix (Tdap) 2020-11-13 Completed [facility] - :11:00 [facility] Boostrix (Tdap) Boostrix (Tdap) 2020-11-13 Completed [facility] - :11:00 [facility] Boostrix (Tdap) Boostrix (Tdap) 2020-11-13 Completed [facility] - :11:00 [facility] Boostrix (Tdap) Boostrix (Tdap) 2020-11-13 Completed [facility] - :11:00 [facility] Boostrix (Tdap) Boostrix (Tdap) 2020-11-13 Completed [facility] - :11:00 [facility] Td 2020-10-31 [facility] Td 2020-10-31 Completed [facility] 00:[facility]00 [facility] Depo-Medrol Depo-Medrol 2020-10-25 [facility] (Methylprednisolone 10:09:[address] [facility] ) 40mg ) 40mg [facility] Depo-Medrol Depo-Medrol 2020-10-25 Com[facility] (Methylprednisolone (Methylprednisolone 10:09:[address] [facility] ) 40mg ) 40mg [facility] Depo-Medrol Depo-Medrol 2020-10-25 [facility] (Methylprednisolone (Methylprednisolone 10:09:[address] [facility] ) 40mg ) 40mg [facility] Depo-Medrol Depo-Medrol 2020-10-25 [facility] (Methylprednisolone (Methylprednisolone 10:09:[address] [facility] ) 40mg ) 40mg [facility] Depo-Medrol Depo-Medrol 2020-10-25 [facility] (Methylprednisolone (Methylprednisolone 10:09:[address] [facility] ) 40mg ) 40mg [facility] Depo-Medrol Depo-Medrol 2020-10-25 [facility] (Methylprednisolone (Methylprednisolone 10:09:[address] [facility] ) 40mg ) 40mg [facility] Depo-Medrol Depo-Medrol 2020-10-25 [facility] (Methylpred[facility]isolone (Methylprednisolone 10:09:00 [facility] ) 40mg ) 40mg [facility] Depo-Medrol Depo-Medrol 2020-10-25 [facility] (Methylprednisolone (Methylprednisolone 10:09:00 [facility] ) 40mg ) 40mg [facility] Depo-Medrol Depo-Medrol 2020-10-25 [facility] (Methylprednisolone (Methylprednisolone 10:09:00 [facility] ) 40mg ) 40mg [facility] Depo-Medrol Depo-Medrol 2020-10-25 [facility] (Methylprednisolone (Methylprednisolone 10:09:00 [facility] ) 40mg ) 40mg [facility] Bupivicaine Keenes Bupivicaine Keenes 2020-10-25 Completed [facility] 10:06:00 [facility] Bupivicaine Keenes Bupivicaine Keenes 2020-10-25 Completed [facility] 10:06:00 [facility] Bupivicaine Keenes Bupivicaine Keenes 2020-10-25 Completed [facility] 10:06:00 [facility] Bupivicaine Keenes Bupivicaine Keenes 2020-10-25 Completed [facility] 10:06:00 [facility] Bupivicaine Keenes Bupivicaine Keenes 2020-10-25 Completed [facility] 10:06:00 [facility] Bupivicaine Keenes Bupivicaine Keenes 2020-10-25 Completed [facility] 10:06:00 [facility] Bupivicaine Keenes Bupivicaine Keenes 2020-10-25 Completed [facility] 10:06:00 [facility] Bupivicaine Keenes Bupivicaine Keenes 2020-10-25 Completed [facility] 10:06:00 [facility] Bupivicaine Keenes Bupivicaine Keenes 2020-10-25 Completed [facility] 10:06:00 [facility] Bupivicaine Keenes Bupivicaine Keenes 2020-10-25 Completed [facility] 10:06:00 [facility] Afluria Afluria 2020-09-24 Completed [facility] - 10:48:00 [facility] Afluria Afluria 2020-09-24 Completed [facility] - 10:48:00 [facility] Afluria Afluria 2020-09-24 Completed [facility] 10:48:00 [facility] Afluria Afluria 2020-09-24 Completed [facility] - 10:48:00 [facility] Afluria Afluria 2020-09-24 Completed [facility] - 10:48:00 [facility] Afluria Afluria 2020-09-24 Completed [facility] - 10:48:00 [facility] Afluria Afluria 2020-09-24 Completed [facility] - 10:48:00 [facility] Afluria Afluria 2020-09-24 Completed [facility] - 10:48:00 [facility] Afluria Afluria 2020-09-24 Completed [facility] - 10:48:00 [facility] Afluria Afluria 2020-09-24 Completed [facility] - 10:48:00 [facility] Afluria Afluria 2020-09-24 Completed [facility] - 10:48:00 [facility] Afluria Afluria 2020-09-24 Completed [facility] - 10:48:00 [facility] Afluria Afluria 2020-09-24 Completed [facility] - 10:48:00 [facility] Afluria Afluria 2020-09-24 Completed [facility] - 10:48:00 [facility] Afluria Afluria 2020-09-24 Completed [facility] - 10:48:00 [facility] Afluria Afluria 2020-09-24 Completed [facility] 10:48:00 [facility] Bupivicaine Keenes Bupivicaine Keenes 2020-09-13 Completed [facility] - 14:27:00 [facility] Bupivicaine Keenes Bupivicaine Keenes 2020-09-13 Completed [facility] 14:27:00 [facility] Bupivicaine Keenes Bupivicaine Keenes 2020-09-13 Completed [facility] - 14:27:00 [facility] Bupivicaine Keenes Bupivicaine Keenes 2020-09-13 Completed [facility] - 14:27:00 [facility] Bupivicaine Keenes Bupivicaine Keenes 2020-09-13 Completed [facility] 14:27:00 [facility] Bupivicaine Keenes Bupivicaine Keenes 2020-09-13 Completed [facility] 14:27:00 [facility] Bupivicaine Keenes Bupivicaine Keenes 2020-09-13 Completed [facility] 14:27:00 [facility] Bupivicaine Keenes Bupivicaine Keenes 2020-09-13 Completed [facility] 14:27:00 [facility] Bupivicaine Keenes Bupivicaine Keenes 2020-09-13 Completed [facility] - 14:27:00 [facility] Bupivicaine Keenes Bupivicaine Keenes 2020-09-13 Completed [facility] 14:27:00 [facility] Kenalog Kenalog 2020-09-13 Completed [facility] - (Triamcinolone) (Triamcinolone) 14:26:00 [facility] Kendipesh Kenalog 2020-09-13 Completed [facility] - (Triamcinolone) (Triamcinolone) 14:26:00 [facility] Kenalog Kenalog 2020-09-13 Completed [facility] - (Triamcinolone) (Triamcinolone) 14::00 [facility] Kendipesh Kendipesh 2020-09-13 Completed [facility] - (Triamcinolone) (Triamcinolone) 14::00 [facility] Kendipesh Kenalog 2020-09-13 Completed [facility] - (Triamcinolone) (Triamcinolone) 14:26:00 [facility] Kenalog Kenalog 2020-09-13 Completed [facility] - (Triamcinolone) (Triamcinolone) 14:26:00 [facility] Kenalog Kenalog 2020-09-13 Completed [facility] - (Triamcinolone) (Triamcinolone) 14::00 [facility] Kenalog Kenalog 2020-09-13 Completed [facility] - (Triamcinolone) (Triamcinolone) 14:26:00 [facility] Kenalog Kenalog 2020-09-13 Completed [facility] - (Triamcinolone) (Triamcinolone) 14:26:00 [facility] Gabriela Ochoa 2020-09-13 Completed [facility] - (Triamcinolone) (Triamcinolone) 14:26:00 [facility] Vital Signs Vital Name Observation Time Observation Value Comments Source height 2021-10-10 09:00:00 65 [in_i] [facility] weight 2021-10-10 09:00:00 183 [lb_av] [facility] temperature 2021-10-10 09:00:00 97.9 [degF] [facility] bmi 2021-10-10 09:00:00 30.45 kg/m2 [facility] oximetry 2021-10-10 09:00:00 99 % [facility] respiratory rate 2021-10-10 09:00:00 18 /min [facility] blood pressure 2021-10-10 09:00:00 134 mm[Hg] [facility] - systolic [facility] blood pressure 2021-10-10 09:00:00 72 mm[Hg] [facility] - diastolic [facility] height 2021-10-10 09:20:00 65 [in_i] [facility] weight 2021-10-10 09:20:00 183 [lb_av] [facility] temperature 2021-10-10 09:20:00 97.9 [degF] [facility] bmi 2021-10-10 09:20:00 30.45 kg/m2 [facility] oximetry 2021-10-10 09:20:00 99 % [facility] respiratory rate 2021-10-10 09:20:00 18 /min [facility] blood pressure 2021-10-10 09:20:00 134 mm[Hg] [facility] systolic [facility] blood pressure 2021-10-10 09:20:00 72 mm[Hg] [facility] - diastolic [facility] height 2021-07-18 10:20:00 65.25 [in_i] [facility] weight 2021-07-18 10:20:00 195 [lb_av] [facility] bmi 2021-07-18 10:20:00 32.2 kg/m2 [facility] height 2021-05-08 08:00:00 65.25 [in_i] [facility] weight 2021-05-08 08:00:00 195 [lb_av] [facility] temperature 2021-05-08 08:00:00 97.4 [degF] [facility] bmi 2021-05-08 08:00:00 32.2 kg/m2 [facility] blood pressure 2021-05-08 08:00:00 132 mm[Hg] [facility] - systolic [facility] blood pressure 2021-05-08 08:00:00 75 mm[Hg] [facility] - diastolic [facility] height 2021-02-08 11:20:00 65.25 [in_i] [facility] weight 2021-02-08 11:20:00 195 [lb_av] [facility] temperature 2021-02-08 11:20:00 98 [degF] [facility] bmi 2021-02-08 11:20:00 32.2 kg/m2 [facility] blood pressure 2021-02-08 11:20:00 130 mm[Hg] [facility] - systolic [facility] blood pressure 2021-02-08 11:20:00 78 mm[Hg] [facility] - diastolic [facility] height 2021-01-11 10:40:00 65.25 [in_i] [facility] weight 2021-01-11 10:40:00 195.4 [lb_av] [facility] temperature 2021-01-11 10:40:00 97.3 [degF] [facility] bmi 2021-01-11 10:40:00 32.26 kg/m2 [facility] oximetry 2021-01-11 10:40:00 99 % [facility] respiratory rate 2021-01-11 10:40:00 18 /min [facility] blood pressure 2021-01-11 10:40:00 135 mm[Hg] [facility] systolic [facility] blood pressure 2021-01-11 10:40:00 76 mm[Hg] [facility] - diastolic [facility] height 2020-12-13 10:50:00 65.25 [in_i] [facility] weight 2020-12-13 10:50:00 184 [[facility]av[facility] temperature 2020-12-13 10:50:00 96.7 [degF] [facility] bmi 2020-12-13 10:50:00 30.38 kg/m2 [facility] oximetry 2020-12-13 10:50:00 96 % [facility] respiratory rate 2020-12-13 10:50:00 18 /min [facility] blood pressure 2020-12-13 10:50:00 139 mm[Hg] [facility] - systolic [facility] blood pressure 2020-12-13 10:50:00 70 mm[Hg] [facility] - diastolic [facility] height 2020-12-13 11:00:00 65.25 [in_i] [facility] weight 2020-12-13 11:00:00 184.0 [lb_av] [facility] temperature 2020-12-13 11:00:00 96.7 [degF] [facility] bmi 2020-12-13 11:00:00 30.38 kg/m2 [facility] oximetry 2020-12-13 11:00:00 96 % [facility] respiratory rate 2020-12-13 11:00:00 18 /min [facility] blood pressure 2020-12-13 11:00:00 139 mm[Hg] [facility] - systolic [facility] blood pressure 2020-12-13 11:00:00 70 mm[Hg] [facility] - diastolic [facility] HEIGHT 2020-11-26 21:00:00 167.6 cm WEIGHT 2020-11-26 21:00:00 81.6 kg HEIGHT 2020-11-26 21:00:00 167.6 cm WEIGHT 2020-11-26 21:00:00 81.6 kg height 2020-11-23 09:40:00 65.25 [in_i] [facility] weight 2020-11-23 09:40:00 188.8 [lb_av] [facility] temperature 2020-11-23 09:40:00 96.6 [degF] [facility] bmi 2020-11-23 09:40:00 31.17 kg/m2 [facility] oximetry 2020-11-23 09:40:00 99 % [facility] respiratory rate 2020-11-23 09:40:00 18 /min [facility] blood pressure 2020-11-23 09:40:00 139 mm[Hg] [facility] - systolic [facility] blood pressure 2020-11-23 09:40:00 70 mm[Hg] [facility] - diastolic [facility] height 2020-11-15 08:20:00 65.25 [in_i] Common [facility] weight 2020-11-15 08:20:00 184.4 [lb_av] [facility] temperature 2020-11-15 08:20:00 97.5 [degF] [facility] bmi 2020-11-15 08:20:00 30.45 kg/m2 Common [facility] oximetry 2020-11-15 08:20:00 96 % Common [facility] respiratory rate 2020-11-15 08:20:00 18 /min Comm on [facility] blood pressure 2020-11-15 08:20:00 130 mm[Hg] Common [facility] - systolic [facility] blood pressure 2020-11-15 08:20:00 70 mm[Hg] Common [facility] - diastolic [facility] height 2020-11-08 16:00:00 65.25 [in_i] [facility] weight 2020-11-08 16:00:00 182 [lb_av] [facility] temperature 2020-11-08 16:00:00 97.1 [degF] [facility] bmi 2020-11-08 16:00:00 30.05 kg/m2 [facility] oximetry 2020-11-08 16:00:00 99 % [facility] respiratory rate 2020-11-08 16:00:00 18 /min Comm on [facility] blood pressure 2020-11-08 16:00:00 139 mm[Hg] Common [facility] - systolic [facility] blood pressure 2020-11-08 16:00:00 89 mm[Hg] Common [facility] - diastolic [facility] Systolic blood 2020-10-31 16:08:00 142 mm[Hg] Univer [facility]ity [facility] Diastolic blood 2020-10-31 16:08:00 63 mm[Hg] Unive rsity of [facility] Heart rate 2020-10-31 16:08:00 85 /min Universi ty [facility] Body temperature 2020-10-31 16:08:00 37.11 Minerva Univ ersity [facility] Respiratory rate 2020-10-31 16:08:00 18 /min [facility] 2020-10-31 16:08:00 78.472 kg Universi ty [facility] BMI 2020-10-31 16:08:00 27.92 kg/m2 Universi ty [facility] Oxygen saturation in 2020-10-31 16:08:00 100 /min University of Arterial blood by [facility] Pulse oximetry Branch height 2020-10-25 09:30:00 65.25 [in_i] Common S pirit [facility] weight 2020-10-25 09:30:00 187.2 [lb_av] Common [facility] bmi 2020-10-25 09:30:00 30.91 kg/m2 Common S pirit - [facility] blood pressure 2020-10-25 09:30:00 153 mm[Hg] Common [facility] - systolic [facility] blood pressure 2020-10-25 09:30:00 90 mm[Hg] Common [facility] - diastolic [facility] Systolic blood 2018-11-08 19:34:00 147 mm[Hg] Univer sity of pressure [facility] Diastolic blood 2018-11-08 19:34:00 72 mm[Hg] Unive rsity of [facility] Heart rate 2018-11-08 19:34:00 55 /min Universi ty [facility] Body temperature 2018-11-08 19:34:00 36.83 Minerva [facility] ersity [facility] Respiratory rate 2018-11-08 19:34:00 18 /min [facility] Body height 2018-11-08 19:34:00 167.6 cm Universi ty [facility] Body weight 2018-11-08 19:34:00 78.472 kg [facility]i [facility] BMI 2018-11-08 19:34:00 27.92 kg/m2 [facility] Oxygen saturation in 2018-11-08 19:34:00 100 /min University of Arterial blood by [facility] Pulse oximetry Branch Systolic blood 2018-11-08 19:34:00 147 mm[Hg] Univer sity of pressure [facility] Diastolic blood 2018-11-08 19:34:00 72 mm[Hg] Unive rsity of [facility] Heart rate 2018-11-08 19:34:00 55 /min [facility] Body temperature 2018-11-08 19:34:00 36.83 Minerva [facility] Respiratory rate 2018-11-08 19:34:00 18 /min [facility] Body height 2018-11-08 19:34:00 167.6 cm [facility] Body weight 2018-11-08 19:34:00 78.472 kg [facility] BMI 2018-11-08 19:34:00 27.92 kg/m2 [facility] Oxygen saturation in 2018-11-08 19:34:00 100 /min [facility] Arterial blood by [facility] Pulse oximetry Branch Procedures Procedure Date / Time Performing Clinician Source Performed XR TIBIA FIBULA 2 VW 2020-10-31 17:18:51 Joe Redding [facility] NOTICE OF PRIVACY 2020-10-31 15:41:10 Doctor Unassigned, No [facility] PRACTICES [facility] [place] CONSENT/REFUSAL FOR 2020-10-31 15:36:51 [facility]igned, [facility] URINALYSIS 2018-11-08 21:09:00 Alma Glynn [facility] LIPASE 2018-11-08 21:04:00 Alma Glynn [facility] COMP. METABOLIC PANEL 2018-11-08 21:04:00 [facility] ([id number]) [facility] CBC WITH DIFFERENTIAL 2018-11-08 21:04:00 Alma Glynn [facility] CT ABDOMEN PELVIS WO 2018-11-08 20:40:34 Alma Glynn [facility] CONTRAST [facility] NOTICE OF PRIVACY 2018-11-08 19:28:34 Doctor Unassigned, No [facility] PRACTICES Name [facility] [place] Plan of Care Planned Activity Planned Date Details Comments Source Future Scheduled 2030-10-31 DTAP/TDAP/TD VACCINES [facility] Test 00:00:00 (2 - Td or Tdap) [code Medic al Center = DTAP/TDAP/TD VACCINES (2 - Td or Tdap)] Future Scheduled 2021 COVID-19 [facility]ACCINE (#[facility] 07:29:37 [code = COVID-19 VACCINE (#1)] Future Scheduled 2021 65[facility] Test 07:29:37 VACCINE (1 - PCV) [code = 65+ PNEUMOCOCCAL VACCINE (1 - PCV)] Future Scheduled 2021 Hepatitis C screening [facility] Test 07:29:37 (procedure) [code = 718077050] Future Scheduled 2021 SHINGLES VACCINES (1 [facility] Test 07:29:37 of 2) [code = SHINGLES VACCINES (1 of 2)] Future Scheduled 2021 BREAST CANCER [facility] Test 07:29:37 SCREENING [code = BREAST CANCER SCREENING] Future Scheduled 2021 COLONOSCOPY SCREENING [facility] Test 07:29:37 [code = COLONOSCOPY SCREENING] Future Scheduled 2021 HEPATITIS B VACCINES [facility] Test 07:29:37 (1 of 3 - Risk 3-dose series) [code = HEPATITIS B VACCINES (1 of 3 - Risk 3-dose series)] Future Scheduled 2021 INFLUENZA VACCINE [facility] Test 07:29:37 [code = INFLUENZA VACCINE] Future Scheduled 2021-10-24 INFLUENZA VACCINE (#1) [facility] Test 00:00:00 [code = INFLUENZA Medical Ce nter VACCINE (#1)] Future Scheduled 2021-02-[address] [facility] Test 00:00:00 WELLNESS (YEAR 2 or Medical Center FIRST YEAR if no IPPE) [code = MEDICARE ANNUAL WELLNESS (YEAR 2 or FIRST YEAR if no IPPE)] Future Scheduled 2021-02-[address] [facility] Test 00:00:00 (12+) [code = Medical Center DEPRESSION SCREENING (12+)] Future Scheduled 2021-02-23 FALLS RISK SCREENING [facility] Test 00:00:00 [code = FALLS RISK Medical C enter SCREENING] Future Scheduled 2017 PNEUMOCOCCAL 65+ YRS [facility] Test 00:00:00 (1 - PCV) [code = Medical Ce nter PNEUMOCOCCAL 65+ YRS (1 - PCV)] Future Scheduled 2002 SHINGLES VACCINES ([address] [facility] Test 00:00:00 of 2) [code = SHINGLES Medic al Center VACCINES (1 of 2)] Future Scheduled 1970 HEPATITIS C SCREENING [facility] Test 00:00:00 [code = HEPATITIS C Medical Center SCREENING] Future Scheduled 1951-06-24 COVID-19 VACCINE (#1) [facility] Test 00:00:00 [code = COVID-[address] VACCINE (#1)] Future Scheduled [address] [facility] Test 00:00:00 (combo) [code = CT Medical C enter Colonography (combo)] Future Scheduled [address] [facility] Test 00:00:00 malignant neoplasm of Medica l Center colon (procedure) [code = 045683565] Future Scheduled [address] [facility] Test 00:00:00 malignant neoplasm of Medica l Center colon (procedure) [code = 952187023] Future Scheduled 1950 DXA SCAN [code = DXA [facility] Test 00:00:00 SCAN] [facility] Future Scheduled [address] [facility] Test 00:00:00 malignant neoplasm of Medica l Center colon (procedure) [code = 645649084] Future Scheduled [address] [facility] Test 00:00:00 malignant neoplasm of Medica l Center colon (procedure) [code = 749675398] Future Scheduled 1950 Sigmoidoscopy [code = [facility] Test 00:00:00 Sigmoidoscopy] [facility] Future Scheduled [address] [facility] Test 00:00:00 malignant neoplasm of Medica l Center breast (procedure) [code = 451902113] Encounters Start End Encounter Admission Attending Care Care Encounter Source Date/Time Date/Time Type Type Clinicians Facility Department ID 2021-09-16 Outpatient Araujo, [facility] [id number] Common 09:08:02 [facility] 2021-03-27 Outpatient Araujo, [facility] [id number] Common 07:51:01 [facility] 2021-03-20 Outpatient Araujo, [facility] [id number] Common 14:15:19 Sajan [id number] [facility] 2021-03-20 Outpatient Araujo, STLMLC [facility] [id number] Common 13:55:32 Sajan [id number] [facility] 2021-03-20 Outpatient Araujo, STLMLC [facility] [id number] Common 13:53:17 Sajan [id number] [facility] 2021-03-20 Outpatient Araujo, STLMLC [facility] [id number] Common 13:29:21 Sajan [id number] [facility] 2021-03-20 Outpatient Araujo, STLMLC [facility] [id number] Common 13:23:28 Sajan [id number] [facility] 2021-03-20 Outpatient Vellanki, [facility] [id number] Common 13:17:07 Vinitha [id number] [facility] 2021-11-16 2021-11-16 Refill Kira, [id number] Methodi 00:00:00 00:00:[address] [facility] 3.430.2.7 Hospit a .3.525218 l .8 2021-10-16 2021-10-16 (TEL) [facility] [id number] Co mmon 00:00:00 00:00:00 [facility] 2021-10-15 2021-10-15 Refill Kira, 1.2.840.1 [id number] Methodi 00:00:00 00:00:[address] [facility] 3.430.2.7 Hospit a .3.162728 l .8 2021-10-10 2021-10-10 OFFICE [facility] [id number] Co mmon 00:00:00 00:00:00 VISIT [facility] PT - CHI LEVEL 4 [facility] 2021-10-10 2021-10-10 SUB ANNUAL [facility] [id number] Common 00:00:00 00:00:00 MCR Spirit WELLNESS - CHI VISIT [facility] 2021-10-03 2021-10-03 (TEL) STLMLC STLMLC [id number] Co mmon 00:00:00 00:00:00 [facility] 2021-09-03 2021-09-03 (TEL) STLMLC STLMLC [id number] Co mmon 00:00:00 00:00:00 [facility] 2021-08-22 2021-08-22 (TEL) STLMLC STLMLC [id number] Co mmon 00:00:00 00:00:00 [facility] 2021-08-16 2021-08-16 (TEL) STLMLC STLMLC [id number] Co mmon 00:00:00 00:00:00 [facility] 2021-07-18 2021-07-18 OFFICE STLMLC STLMLC [id number] Co mmon 00:00:00 00:00:00 VISIT EST Spir it PT LEVEL 3 [facility] 2021-07-16 2021-07-16 (TEL) STLMLC STLMLC [id number] Co mmon 00:00:00 00:00:00 [facility] 2021-06-26 2021-06-26 (TEL) STLMLC STLMLC [id number] Co mmon 00:00:00 00:00:00 [facility] 2021-05-08 2021-05-08 OFFICE STLMLC STLMLC [id number] Co mmon 00:00:00 00:00:00 VISIT Spirit ESTAB PT - CHI LEVEL 4 [facility] 2021-02-08 2021-02-08 OFFICE STLMLC STLMLC [id number] Co mmon 00:00:00 00:00:00 VISIT Spirit ESTAB PT - CHI LEVEL 4 [facility] 2021-01-11 2021-01-11 OFFICE STLMLC STLMLC [id number] Co mmon 00:00:00 00:00:00 VISIT Spirit ESTAB PT - CHI LEVEL 4 [facility] 2021-01-07 2021-01-07 Telephone Bren, 1.2.840.1 [id number] Methodi 00:00:00 00:00:00 Laya Kathleen [address]11.1.[address] 3.430.2.7 Hospit a .3.417028 l .8 2020-12-26 2020-12-26 (TEL) STLMLC STLMLC [id number] Co mmon 00:00:00 00:00:00 Spirit - CHI [facility] 2020-12-13 2020-12-13 OFFICE STLMLC STLMLC [id number] Co mmon 00:00:00 00:00:00 VISIT Spirit ESTAB PT - CHI LEVEL 4 [facility] 2020-12-13 2020-12-13 SUB ANNUAL STLMLC STLMLC [id number] Common 00:00:00 00:00:00 MCR Spirit WELLNESS - CHI VISIT [facility] 2020-11-26 2020-11-29 Inpatient ER [facility]AN [facility] G[facility] [id number] [facility] 17:00:00 13:43:00 2020-11-23 2020-11-23 OFFICE STLMLC STLMLC [id number] Co mmon 00:00:00 00:00:00 VISIT EST Spir it PT LEVEL 3 [facility] 2020-11-15 2020-11-15 OFFICE STLMLC STLMLC [id number] Co mmon 00:00:00 00:00:00 VISIT EST Spir it PT LEVEL 3 - [facility]I [facility] 2020-11-08 2020-11-08 OFFICE STLMLC STLMLC [id number] Co mmon 00:00:00 00:00:00 VISIT EST Spir it PT LEVEL 3 - [facility] 2020-11-05 2020-11-05 (TEL) STLMLC STLMLC [id number] Co mmon 00:00:00 00:00:00 [facility] 2020-11-01 2020-11-01 (TEL) STLMLC STLMLC [id number] Co mmon 00:00:00 00:00:00 [facility] 2020-10-31 2020-10-31 Emergency [place], [facility] [id number] [facility] 11:10:00 14:04:00 Joe Valaedz 350.1.13.10 i ty of [place] 4.2.7.2.686 [facility] [id number] [facility] brandon 084 Branch 2020-10-31 2020-10-31 Emergency X [facility] ERT [id number] Univers 10:37:00 10:37:00 ity of [facility] 2020-10-31 2020-10-31 Orders Doctor JOVANA [id number] [id number] Univers 00:00:00 00:00:00 Only Unassigned, XOCHILT 350.1.13.10 ity of [facility] 4.2.7.2.686 [facility] [id number] [facility] 009 Branch 2020-10-25 2020-10-25 (TEL) STLMLC STLMLC [id number] Co mmon 00:00:00 00:00:00 [facility] 2020-10-25 2020-10-25 OFFICE STLMLC STLMLC [id number] Co mmon 00:00:00 00:00:00 VIS[address] [facility] LEVEL 4 [facility] 2020-10-03 2020-10-03 Outpatient CARMINA BUTLER [facility] [id number] [place] 00:00:00 00:00:[address] 2020-10-03 2020-10-03 Outpatient CARMINA BUTLER [facility] [id number] [place] 00:00:00 00:00:[address] 2020-09-13 2020-09-13 Outpatient STLMLC STLMLC [id number] Common 00:00:00 00:00:00 [facility] 2020-08-29 2020-08-29 Outpatient KIRA [facility] [id number] [place] 00:00:00 00:00:00 MICHAEL [address] 2020-08-28 2020-08-28 Outpatient STLMLC STLMLC [id number] Common 00:00:00 00:00:00 [facility] 2020-08-15 2020-08-15 Outpatient STLMLC STLMLC [id number] Common 00:00:00 00:00:00 [facility] 2020-08-14 2020-08-14 Outpatient KIRA, [facility] [id number] [place] 00:00:00 00:00:00 MICHAEL [address] 2020-08-13 2020-08-13 Outpatient [facility]MLC [facility] [id number] [facility] 00:00:00 00:00:00 [facility] 2020-07-31 2020-07-31 Outpatient KIRA, [facility] [id number] [place] 00:00:00 00:00:00 MICHAEL [address] 2020-02-27 2020-02-27 Outpatient ERICKSON_R [facility] [id number] [place] 05:06:00 05:06:00 [facility] 2020-02-27 2020-02-27 Outpatient ERICKSON_R [facility] [id number] [place] 05:06:00 05:06:00 305 [facility] 2020-02-15 2020-02-15 Outpatient ERICKSON_R [facility] [id number] [place] 01:02:00 01:02:00 223 [facility] 2020-01-17 2020-01-17 Outpatient KIRA, [facility] [id number] [place] 00:00:00 00:00:00 MICHAEL [address] 2020-01-10 2020-01-10 Outpatient KIRA, [facility] [id number] [place] 00:00:00 00:00:00 MICHAEL [address] 2019-10-18 2019-10-18 Outpatient KIRA, [facility] [id number] [place] 00:00:00 00:00:00 MICHAEL [address] 2019-10-04 2019-10-04 Outpatient HEYNE, CARMINA [facility] [id number] [place] 00:00:00 00:00:[address] 2019-09-27 2019-09-27 Outpatient KIRA, [facility] [id number] [place] 00:00:00 00:00:00 MICHAEL [address] 2019-09-16 2019-09-16 Outpatient KIRA, [facility] [id number] [place] 00:00:00 00:00:00 MICHAEL [address] 2019-08-10 2019-08-10 Outpatient CARMINA BUTLER [facility] [id number] [place] 00:00:00 00:00:[address] 2019-07-26 2019-07-26 Outpatient CARMINA BUTLER [facility] [id number] [place] 00:00:00 00:00:[address] 2019-07-26 2019-07-26 Outpatient CARMINA BUTLER [facility] [id number] [place] 00:00:00 00:00:00 549 Method i 2018-12-30 2018-12-30 Outpatient ROWENA [facility] [id number] [place] 00:00:00 00:00:00 KISHORE 349 Method i 2018-11-08 2018-11-08 Emergency [facility] [id number] 16:02:01 18:05:00 Alma Valadez 350.1.13.10 [place] 4.2.7.2.686 [place] [id number] [facility] 2018-11-08 2018-11-08 Emergency [facility] [id number] [facility] 16:02:01 18:05:00 Alma Valadez 350.1.13.10 i ty of [place] 4.2.7.2.686 [facility] [id number] [place] [address] [place] 2016-07-28 2016-07-28 [facility] [id number] [facility] 00:00:00 00:00:00 Results Test Description Test Time Test Comments Results Result Comments Source COMPREHENSIVE METABOLIC PANEL 2020-11-29 06:04:33 Test Item Value Reference Range Interpretation Comme nts TOTAL PROTEIN (BEAKER) 5.5 gm/dL 6.0-8.5 L (test code = 770) ALBUMIN (BEAKER) (test code 2.6 g/dL 3.5-5.0 L = 1145) ALKALINE PHOSPHATASE 249 U/L 30-115 H (BEAKER) (test code = 346) BILIRUBIN TOTAL (BEAKER) 0.4 mg/dL 0.1-1.2 (test code = 377) SODIUM (BEAKER) (test code 138 meq/L 135-148 = 381) POTASSIUM (BEAKER) (test 3.7 meq/L 3.6-5.5 code = 379) CHLORIDE (BEAKER) (test 116 meq/L 98-106 H code = 382) CO2 (BEAKER) (test code = 14 meq/L 20-29 L 355) BLOOD UREA NITROGEN 21 mg/dL 10-26 (BEAKER) (test code = 354) CREATININE (BEAKER) (test 1.64 mg/dL 0.50-1.20 H code = 358) GLUCOSE RANDOM (BEAKER) 151 mg/dL 70-110 H (test code = 652) CALCIUM (BEAKER) (test code 9.7 mg/dL 8.5-10.5 = 697) AST (SGOT) (BEAKER) (test 23 U/L 5-40 code = 353) ALT (SGPT) (BEAKER) (test 53 U/L 5-50 H code = 347) EGFR (BEAKER) (test code = 31 mL/min/1.73 sq m ESTIMATED GFR IS NOT 1092) ACCURATE CRE ATININE CLEARANCE IN UT EDICTING GLOMERULAR FILT RATION RATE. ESTIMATED GFR IS NOT APPLICABLE FOR DIALYSIS PATIENTS. 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 ID - ADMINOperator ID - ADMINOperator ID - ADMINOperator ID - ADMINOperator ID - ADMINOperator ID - ADMINOperator ID - ADMINOperator ID - ADMINOperator ID - ADMINOperator ID - ADMINOperator ID- ADMINOperator ID - ADMINOperator ID - ADMINOperator ID - ADMINOperator ID - ADMINOperator ID - ADMI [id number] 05:34:43 Test Item Value Reference Range Interpretation Comments LIPASE (BEAKER) (test code = 749) 437 U/L 6-51 H 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 ID - [id number] 05:33:29 Test Item Value Reference Range Interpretation Comments MAGNESIUM (BEAKER) (test code = 1.4 mg/dL 1.5-3.0 L 627) 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 ID - [id number] 05:26:01 Test Item Value Reference Range Interpretation Comments AMYLASE (BEAKER) (test code = 349) 46 U/L 30-110 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 ID - ADMINOperator ID - ADMINOperator ID - ADMINOperator ID - ADMINCBC W/PLT COUNT & AUTO [id number] 05:24:28 Test Item Value Reference Range Interpretation Comments WHITE BLOOD CELL COUNT (BEAKER) 11.3 K/ L 4.0-10.0 H (test code = 775) RED BLOOD CELL COUNT (BEAKER) 2.64 M/ L 4.00-5.00 L (test code = 761) HEMOGLOBIN (BEAKER) (test code = 8.9 GM/DL 12.0-15.5 L 410) HEMATOCRIT (BEAKER) (test code = 28.1 % 36.0-46.0 L 411) MEAN CORPUSCULAR VOLUME (BEAKER) 106.4 fL 82.0-99.0 H (test code = 753) MEAN CORPUSCULAR HEMOGLOBIN 33.7 pg 27.0-33.0 H (BEAKER) (test code = 751) MEAN CORPUSCULAR HEMOGLOBIN CONC 31.7 GM/DL 32.0-36.0 L (BEAKER) (test code = 752) RED CELL DISTRIBUTION WIDTH 14.2 % 12.0-15.0 (BEAKER) (test code = 412) PLATELET COUNT (BEAKER) (test 299 K/CU MM 150-430 code = 756) MEAN PLATELET VOLUME (BEAKER) 11.5 fL 6.0-11.5 (test code = 754) NUCLEATED RED BLOOD CELLS 0 /100 WBC 0-0 (BEAKER) (test code = 413) NEUTROPHILS RELATIVE PERCENT 71 % (BEAKER) (test code = 429) LYMPHOCYTES RELATIVE PERCENT 11 % (BEAKER) (test code = 430) MONOCYTES RELATIVE PERCENT 13 % (BEAKER) (test code = 431) EOSINOPHILS RELATIVE PERCENT 4 % (BEAKER) (test code = 432) BASOPHILS RELATIVE PERCENT 1 % (BEAKER) (test code = 437) NEUTROPHILS ABSOLUTE COUNT 8.01 K/ L 1.80-8.00 H (BEAKER) (test code = 670) LYMPHOCYTES ABSOLUTE COUNT 1.23 K/ L 1.48-4.50 L (BEAKER) (test code = 414) MONOCYTES ABSOLUTE COUNT (BEAKER) 1.52 K/ L 0.00-1.30 H (test code = 415) EOSINOPHILS ABSOLUTE COUNT 0.42 K/ L 0.00-0.50 (BEAKER) (test code = 416) BASOPHILS ABSOLUTE COUNT (BEAKER) 0.08 K/ L 0.00-0.20 (test code = 417) IMMATURE GRANULOCYTES-RELATIVE 1 % 0-0 H PERCENT (BEAKER) (test code = 2801) MR, ABDOMEN, [id number] 14:19:00Unlisted Reason for Exam - Click Yes and Enter Reason Below->No [facility] CENTERName: STEPHENIE EATON : 1950 Sex: FFINALREPORT TECHNIQUE: MRI of the abdomen and MRCP WITHOUT intravenous contrast. 3-Dvolume reconstructions were obtained to evaluate the biliary ductal system. INDICATION: 69-year-old woman with biliary obstruction suspected. COMPARISON: None. FINDINGS: ABSENCE OF INTRAVENOUS CONTRASTDECREASES SENSITIVITY FOR DETECTION OF FOCAL LESIONS AND VASCULAR PATHOLOGY. LOWER THORAX: Unremarkab le. LIVER: No cirrhosis or hepatic steatosis. No focal hepatic lesion. BILIARY: Prior cholecystectomy. Common bile duct is prominent up to 1.5 cm in diameter with questionable subcentimeter filling defect in the distal common bile duct. Intrahepatic bile ducts are also prominent.SPLEEN: Spleen is absent.PANCREAS: Pancreatic duct is at the upper limit of normal in caliber and measures 0.4 cm without definite filling defect or stricture. Scattered cystic lesions in the pancreas measure up to 0.4 cm. ADRENALS: No adrenal nodule.KIDNEYS/URETERS: No hydronephrosis or mass. Bilateral renal cysts measure up to 2.1 x 1.5 cm on the right and up to 2.5 x 2.4 cm on the left. PERITONEUM/RETROPERITONEUM: No free fluid.LYMPH NODES: No lymphadenopathy.VESSELS: Unremarkable. GI TRACT: Suspected prior partial gastrectomy with gastrojejunostomy. No distention or wall thickening. BONES AND SOFT TISSUES: Unremarkable. IMPRESSION:Intrahepatic and extrahepatic biliary ductal dilatation with questionable subcentimeter filling defect in the distal common bile duct, for which choledocholithiasis/debris cannot be excluded. Pancreatic cystic lesions measure up to 0.4 cm. Follow-up abdomen MRI/MRCP may be obtained in 1-2 years for reassessment. Signed: Zachary Johnson MDReport Verified Date/Time: 11/28/2020 14:19:54 Reading Location: [facility] Diagnostic Imaging Reading Room - [place] [address] COMPREHENSIVE METABOLIC [id number] 06:35:04 Test Item Value Reference Range Interpretation Comments TOTAL PROTEIN 5.2 gm/dL 6.0-8.5 L (BEAKER) (test code = 770) ALBUMIN (BEAKER) 2.6 g/dL 3.5-5.0 L (test code = 1145) ALKALINE PHOSPHATASE 296 U/L 30-115 H (BEAKER) (test code = 346) BILIRUBIN TOTAL 0.5 mg/dL 0.1-1.2 (BEAKER) (test code = 377) SODIUM (BEAKER) (test 140 meq/L 135-148 code = 381) POTASSIUM (BEAKER) 3.7 meq/L 3.6-5.5 (test code = 379) CHLORIDE (BEAKER) 116 meq/L 98-106 H (test code = 382) CO2 (BEAKER) (test 15 meq/L 20-29 L code = 355) BLOOD UREA NITROGEN 26 mg/dL 10-26 (BEAKER) (test code = 354) CREATININE (BEAKER) 1.66 mg/dL 0.50-1.20 H (test code = 358) GLUCOSE RANDOM 130 mg/dL 70-110 H (BEAKER) (test code = 652) CALCIUM (BEAKER) 9.8 mg/dL 8.5-10.5 (test code = 697) AST (SGOT) (BEAKER) 51 U/L 5-40 H (test code = 353) ALT (SGPT) (BEAKER) 80 U/L 5-50 H (test code = 347) EGFR (BEAKER) (test 31 mL/min/1.73 ESTIMA NAHUN GFR IS code = 1092) sq m NOT ACCURATE CREATININE CLEARANCE IN PREDICTING GLOMERULAR FILTRATION RATE . ESTIMATED GFR I S NOT APPLICABLE FOR DIALYSIS PATIEN TS. 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 ID - [id number] ID - [id number] ID - [id number] ID - [id number] ID - [id number] ID - [id number] ID - [id number] ID - [id number] ID - [id number] ID - [id number] ID - [id number] ID - [id number] ID - [id number] ID - [id number] ID - [id number] ID - [id number] 06:34:40 Test Item Value Reference Range Interpretation Comments LIPASE (BEAKER) (test code = 749) 134 U/L 6-51 H 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 ID - [id number] 06:33:20 Test Item Value Reference Range Interpretation Comments MAGNESIUM (BEAKER) (test code = 1.4 mg/dL 1.5-3.0 L 627) 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 ID - [id number] 06:32:55 Test Item Value Reference Range Interpretation Comments TRIGLYCERIDES (BEAKER) (test code = 77 mg/dL 540) CHOLESTEROL (BEAKER) (test code = 100 mg/dL 631) HDL CHOLESTEROL (BEAKER) (test code 25 mg/dL = 976) LDL CHOLESTEROL CALCULATED (BEAKER) 60 mg/dL (test code = 633) Triglyceride Reference Range: Low Risk <150 Borderline 150-199 High Risk 200- 499 Very High Risk >=500Cholesterol Reference Range: Low Risk <200 Borderline 200-239 High Risk >240HDL Cholesterol Reference Range: Low Risk >=60 High Risk <40LDL Cholesterol Reference Range: Optimal <100 Near Optimal 100-129 Borderline 130-159 High 160-189 Very High >=190 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 ID - [id number] ID - [id number] ID - [id number] 06:25:55 Test Item Value Reference Range Interpretation Comments AMYLASE (BEAKER) (test code = 349) 55 U/L 30-110 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 ID - [id number] ID - [id number] ID - [id number] ID - [id number] HEMOGLOBIN [id number] 06:25:54 Test Item Value Reference Range Interpretation Comments HEMOGLOBIN A1C (BEAKER) (test code = 6.0 % 4.3-6.1 368) 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 ID - [id number] W/PLT COUNT & AUTO [id number] 06:17:28 Test Item Value Reference Range Interpretation Comments WHITE BLOOD CELL COUNT (BEAKER) 12.8 K/ L 4.0-10.0 H (test code = 775) RED BLOOD CELL COUNT (BEAKER) 2.76 M/ L 4.00-5.00 L (test code = 761) HEMOGLOBIN (BEAKER) (test code = 9.3 GM/DL 12.0-15.5 L 410) HEMATOCRIT (BEAKER) (test code = 28.9 % 36.0-46.0 L 411) MEAN CORPUSCULAR VOLUME (BEAKER) 104.7 fL 82.0-99.0 H (test code = 753) MEAN CORPUSCULAR HEMOGLOBIN 33.7 pg 27.0-33.0 H (BEAKER) (test code = 751) MEAN CORPUSCULAR HEMOGLOBIN CONC 32.2 GM/DL 32.0-36.0 (BEAKER) (test code = 752) RED CELL DISTRIBUTION WIDTH 14.0 % 12.0-15.0 (BEAKER) (test code = 412) PLATELET COUNT (BEAKER) (test 286 K/CU MM 150-430 code = 756) MEAN PLATELET VOLUME (BEAKER) 12.0 fL 6.0-11.5 H (test code = 754) NUCLEATED RED BLOOD CELLS 1 /100 WBC 0-0 H (BEAKER) (test code = 413) NEUTROPHILS RELATIVE PERCENT 66 % (BEAKER) (test code = 429) LYMPHOCYTES RELATIVE PERCENT 14 % (BEAKER) (test code = 430) MONOCYTES RELATIVE PERCENT 14 % (BEAKER) (test code = 431) EOSINOPHILS RELATIVE PERCENT 5 % (BEAKER) (test code = 432) BASOPHILS RELATIVE PERCENT 1 % (BEAKER) (test code = 437) NEUTROPHILS ABSOLUTE COUNT 8.37 K/ L 1.80-8.00 H (BEAKER) (test code = 670) LYMPHOCYTES ABSOLUTE COUNT 1.78 K/ L 1.48-4.50 (BEAKER) (test code = 414) MONOCYTES ABSOLUTE COUNT (BEAKER) 1.81 K/ L 0.00-1.30 H (test code = 415) EOSINOPHILS ABSOLUTE COUNT 0.69 K/ L 0.00-0.50 H (BEAKER) (test code = 416) BASOPHILS ABSOLUTE COUNT (BEAKER) 0.07 K/ L 0.00-0.20 (test code = 417) IMMATURE GRANULOCYTES-RELATIVE 0 % 0-0 PERCENT (BEAKER) (test code = 2801) [id number] 06:49:24 Test Item Value Reference Range Interpretation Comments LIPASE (BEAKER) (test code = 749) 350 U/L 6-51 H 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 ID - LITOCOMPREHENSIVE METABOLIC [id number] 06:48:52 Test Item Value Reference Range Interpretation Comments TOTAL PROTEIN 5.5 gm/dL 6.0-8.5 L (BEAKER) (test code = 770) ALBUMIN (BEAKER) 2.6 g/dL 3.5-5.0 L (test code = 1145) ALKALINE PHOSPHATASE 320 U/L 30-115 H (BEAKER) (test code = 346) BILIRUBIN TOTAL 1.3 mg/dL 0.1-1.2 H (BEAKER) (test code = 377) SODIUM (BEAKER) (test 139 meq/L 135-148 code = 381) POTASSIUM (BEAKER) 4.1 meq/L 3.6-5.5 (test code = 379) CHLORIDE (BEAKER) 115 meq/L 98-106 H (test code = 382) CO2 (BEAKER) (test 15 meq/L 20-29 L code = 355) BLOOD UREA NITROGEN 35 mg/dL 10-26 H (BEAKER) (test code = 354) CREATININE (BEAKER) 1.90 mg/dL 0.50-1.20 H (test code = 358) GLUCOSE RANDOM 143 mg/dL 70-110 H (BEAKER) (test code = 652) CALCIUM (BEAKER) 9.8 mg/dL 8.5-10.5 (test code = 697) AST (SGOT) (BEAKER) 158 U/L 5-40 H (test code = 353) ALT (SGPT) (BEAKER) 127 U/L 5-50 H (test code = 347) EGFR (BEAKER) (test 26 mL/min/1.73 ESTIMA NAHUN GFR IS code = 1092) sq m NOT ACCURATE CREATININE CLEARANCE IN PREDICTING GLOMERULAR FILTRATION RATE . ESTIMATED GFR I S NOT APPLICABLE FOR DIALYSIS PATIEN TS. 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 ID - LITOOperator ID - LITOOperator ID - LITOOperator ID - LITOOperator ID - LITOOperator ID - LITOOperator ID - LITOOperator ID - LITOOperator ID - LITOOperator ID - LITOOperator ID - LITOOperator ID - LITOOperator ID - LITOOperator ID - LITOOperator ID - LITOOperator ID - [id number] 06:48:09 Test Item Value Reference Range Interpretation Comments MAGNESIUM (BEAKER) (test code = 1.4 mg/dL 1.5-3.0 L 627) 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 ID - [id number] 06:40:43 Test Item Value Reference Range Interpretation Comments AMYLASE (BEAKER) (test code = 349) 110 U/L 30-110 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 ID - LITOOperator ID - LITOOperator ID - LITOOperator ID - LITOCBC W/PLT COUNT & AUTO [id number] 06:37:02 Test Item Value Reference Range Interpretation Comments WHITE BLOOD CELL COUNT (BEAKER) 12.6 K/ L 4.0-10.0 H (test code = 775) RED BLOOD CELL COUNT (BEAKER) 2.76 M/ L 4.00-5.00 L (test code = 761) HEMOGLOBIN (BEAKER) (test code = 9.3 GM/DL 12.0-15.5 L 410) HEMATOCRIT (BEAKER) (test code = 29.3 % 36.0-46.0 L 411) MEAN CORPUSCULAR VOLUME (BEAKER) 106.2 fL 82.0-99.0 H (test code = 753) MEAN CORPUSCULAR HEMOGLOBIN 33.7 pg 27.0-33.0 H (BEAKER) (test code = 751) MEAN CORPUSCULAR HEMOGLOBIN CONC 31.7 GM/DL 32.0-36.0 L (BEAKER) (test code = 752) RED CELL DISTRIBUTION WIDTH 13.9 % 12.0-15.0 (BEAKER) (test code = 412) PLATELET COUNT (BEAKER) (test 267 K/CU MM 150-430 code = 756) MEAN PLATELET VOLUME (BEAKER) 12.0 fL 6.0-11.5 H (test code = 754) NUCLEATED RED BLOOD CELLS 0 /100 WBC 0-0 (BEAKER) (test code = 413) NEUTROPHILS RELATIVE PERCENT 68 % (BEAKER) (test code = 429) LYMPHOCYTES RELATIVE PERCENT 13 % (BEAKER) (test code = 430) MONOCYTES RELATIVE PERCENT 15 % (BEAKER) (test code = 431) EOSINOPHILS RELATIVE PERCENT 4 % (BEAKER) (test code = 432) BASOPHILS RELATIVE PERCENT 0 % (BEAKER) (test code = 437) NEUTROPHILS ABSOLUTE COUNT 8.54 K/ L 1.80-8.00 H (BEAKER) (test code = 670) LYMPHOCYTES ABSOLUTE COUNT 1.63 K/ L 1.48-4.50 (BEAKER) (test code = 414) MONOCYTES ABSOLUTE COUNT (BEAKER) 1.83 K/ L 0.00-1.30 H (test code = 415) EOSINOPHILS ABSOLUTE COUNT 0.49 K/ L 0.00-0.50 (BEAKER) (test code = 416) BASOPHILS ABSOLUTE COUNT (BEAKER) 0.05 K/ L 0.00-0.20 (test code = 417) IMMATURE GRANULOCYTES-RELATIVE 1 % 0-0 H PERCENT (BEAKER) (test code = 2801) RAD, CHEST, 1 VIEW, NON [id number] 18:14:00Reason for exam:- >pneumoniaShould this be performed at the bedside?->Yes [facility] : 1950 Sex: FFINALREPORT TECHNIQUE: Frontal view of the chest. INDICATION: pneumonia COMPARISON:None DISCUSSION:Limited evaluation due to portable technique. Lines and hardware: NoneHeart and mediastinum: Within normal limits.Lungs and pleura: No focal airspace consolidation. No pleural effusion. No pneumothorax.Soft tissues and bones: No acute abnormality. IMPRESSION:Negative for acute intrathoracic process. Signed: Amado Araujo MDReport Verified Date/Time: 11/26/2020 18:14:21 Reading Location: [facility] Women XR TIBIA FIBULA 2 VW [id number] 18:48:501. No acute osseous injury. ?2. Mild soft tissue edema in the mid and lower leg. RL: 6214 End of Report EXAM: XR TIBIA FIBULA 2 VW LEFT ORDERING CLINICIAN: ?JOE ?MILADIS HISTORY: ?Leg pain. ?Dog bite. Possible foreign body. COMPARISON: none TECHNICAL QUALITY: Adequate FINDINGS:AP and lateral views of the left tibia/fibula. There is no acute fractureor dislocation. Alignment at the knee and ankle appears normal. ?Nosignificant anklejoint effusion. ?Mild soft tissue edema likely present inthe mid and lower leg. Subtle densities in the subcutaneous soft tissuesprojecting over the medial posterior aspect of the proximal and midportionof the leg are nonspecific and could be related to areas of chronic softtissue calcification or vascular calcifications. No clear soft tissuepuncture wound is identified. [facility], Radiant Results Inft User - 10/31/2020 1:49 PM CDT EXAM: XR TIBIA FIBULA 2 VW LEFTORDERING CLINICIAN: JOE REDDING HISTORY: Leg pain. Dog bite. Possible foreign body.COMPARISON: noneTECHNICAL QUALITY: AdequateFINDINGS:AP and lateral views of the left tibia/fibula. There is no acute fractureor dislocation. Alignment at the knee and ankle appears normal. Nosignificant ankle joint effusion. Mild soft tissue edema likely present inthe mid and lower leg. Subtle densities in the subcutaneous soft tissuesprojecting over the medial posterior aspect of the proximal and midportionof the leg are nonspecific and could be related to areas of chronic softtissue calcificationor vascular calcifications. No clear soft tissuepuncture wound is identified.IMPRESSION1. No acute osseous injury. 2. Mild soft tissue edema in the mid and lower leg.RL: 6214End of ReportElectronicallysigned by Yang Giles MD at 10/31/2020 1:48 PMUnC[facility] LancasterXR TIBIA FIBULA 2 VW [id number] 18:48:501. No acute osseous injury. ?2. Mild soft tissue edema in the mid and lower leg. RL: 6214 End of Report EXAM: XR TIBIA FIBULA 2 VW LEFT ORDERING CLINICIAN: ?JOE LOZANO HISTORY: ?Leg pain. ?Dog bite. Possible foreign body. COMPARISON: none TECHNICAL QUALITY: Adequate FINDINGS:AP and lateral views of the left tibia/fibula. There is no acute fractureor dislocation. Alignment at the knee and ankle appears normal. ?Nosignificant anklejoint effusion. ?Mild soft tissue edema likely present inthe mid and lower leg. Subtle densities in the subcutaneous soft tissuesprojecting over the medial posterior aspect of the proximal and midportionof the leg are nonspecific and could be related to areas of chronic softtissue calcification or vascular calcifications. No clear soft tissuepuncture wound is identified. [facility], Radiant Results Inft User - 10/31/2020 1:49 PM CDT EXAM: XR TIBIA FIBULA 2 VW LEFTORDERING CLINICIAN: JOE REDDING HISTORY: Leg pain. Dog bite. Possible foreign body.COMPARISON: noneTECHNICAL QUALITY: AdequateFINDINGS:AP and lateral views of the left tibia/fibula. There is no acute fractureor dislocation. Alignment at the knee and ankle appears normal. Nosignificant ankle joint effusion. Mild soft tissue edema likely present inthe mid and lower leg. Subtle densities in the subcutaneous soft tissuesprojecting over the medial posterior aspect of the proximal and midportionof the leg are nonspecific and could be related to areas of chronic softtissue calcificationor vascular calcifications. No clear soft tissuepuncture wound is identified.IMPRESSION1. No acute osseous injury. 2. Mild soft tissue edema in the mid and lower leg.RL: 6214End of Report UnC[facility] LancasterURINALYSIS2019-09-16 22:03:00 Test Item Value Reference Range Interpretation Comments APPEARANCE (test code = Hazy Clear A 8082519454) COLOR (test code = Yellow Yellow 2166119739) PH (test code = 4.8-8.0 5938796539) SP GRAVITY (test code = 1.003-1.030 2517227559) GLU U QUAL (test code = 50 mg/dL Normal A 0101483072) BLOOD (test code = Negative Negative INTERFERE NCE FROM 3125506089) ASCORBIC ACID M AY CAUSE FALSE NEG ATIVE RESULT KETONES (test code = Negative Negative 0074246627) PROTEIN (test code = 100 mg/dL Negative A 2887-8) UROBILIN (test code = Normal Normal 4429607711) BILIRUBIN (test code = Negative Negative 5614337657) NITRITE (test code = Negative Negative 9373078430) LEUK ODALIS (test code = 250/uL Negative A 6914518767) RBC/HPF (test code = See_Comment H [Autom ated message] 3040340779) The system [employer] generated this result transmitted ref erence range: 0 - 3 HP F. The reference range was not used to int erpret this result as normal/abnormal . WBC/HPF (test code = See_Comment H [Autom ated message] 1007500529) The system [employer] generated this result transmitted ref erence range: 0 - 5 HP F. The reference range was not used to int erpret this result as normal/abnormal . BACTERIA (test code = Few Negative A 3061613878) MUCOUS (test code = Slight Negative LPF A 8340399963) SQ EPITH (test code = HPF 6977969298) WBC CLUMPS (test code = See_Comment [Au tomated message] 9281175935) The system [employer] generated this result transmitted ref erence range: <=1 HPF. The reference range was not used to int erpret this result as normal/abnormal . HYAL CAST (test code = See_Comment H [Aut omated message] 0651899199) The system [employer] generated this result transmitted ref erence range: <=2 LPF. The reference range was not used to int erpret this result as normal/abnormal . Lab Interpretation Abnormal (test code = 75903-3) [facility] (60811)2018-11-08 21:28:00 Test Item Value Reference Range Interpretation Comments NA (test code = 143 mmol/L 135-145 9118640921) K (test code = 3.8 mmol/L 3.5-5 9037996835) CL (test code = 108 mmol/L 98-108 9495483586) CO2 TOTAL (test code = 24 mmol/L 23-31 9574132100) AGAP (test code = 2-16 7649235115) BUN (test code = 38 mg/dL 7-23 H 7687443972) GLUCOSE (test code = 171 mg/dL 70-110 H 1699735722) CREATININE (test code = 2.77 mg/dL 0.5-1.04 H 3984156892) TOTAL BILI (test code = 0.1 mg/dL 0.1-1.6 3567326818) CALCIUM (test code = 10.0 mg/dL 8.6-10.6 5316712337) T PROTEIN (test code = 7.3 g/dL 6.3-8.2 1928986106) ALBUMIN (test code = 4.3 g/dL 3.5-5 7422915565) ALK PHOS (test code = 78 U/L 34-122 8366118407) ALT(SGPT) (test code = 15 U/L 9-51 7504606198) AST(SGOT) (test code = 22 U/L 13-40 4490603070) eGFR Calculation mL/min/1.73m2 (Non-) (test code = 2906752503) eGFR Calculation mL/min/1.73m2 () (test code = 1099926511) DAVID (test code = DAVID) Association of Glomerular Filtration Rate (GFR) and Staging of Kidney Disease*+ + + +| GFR (mL/min/1.73 m2)?| With Kidney Damage?|?Without Kidney Damage+ --------+ --------+ +|?>90?|?S tage one?|? Normal?+ ---------+ ---------+ +|?60-89? |?Stage two?|? Decreased GFR? + --+ --+ ------+|?30-59?|?Stage three?|? Stage three? + --+ --+ ------+|?15-29?|?Stage four? |? Stage four?+ -------+ -------+ +|?<15 (or dialysis)?|?Stage five? |? Stage five?+ -------+ -------+ +*Each stage assumes the associated GFR level has been in effect for at least three months.?Stages 1 to 5, with or without kidney disease, indicate chronic kidney disease.Notes: Determination of stages one and two (with eGFR >59mL/min/1.73 m2) requires estimation of kidney damage for at least three months as defined by structural or functional abnormalities of the kidney, manifested by either:Pathological abnormalities or Markers of kidney damage (including abnormalities in the composition of the blood or urine or abnormalities in imaging tests). Lab Interpretation Abnormal (test code = 00061-1) [facility]2019-09-[facility] 21:28:00 Test Item Value Reference Range Interpretation Comments LIPASE (test code = 4865797998) 178 U/L 0-220 Lab Interpretation (test code = Normal 28602-9) [facility]hamCB WITH [id number] 21:25:00 Test Item Value Reference Range Interpretation Comments WBC (test code = See_Comment [Automated 6690-2) message] The sy stem which generated this result transmitted reference range : 4.30 - 11.10 10*3/?L. The reference range was not used to interpret this result as normal/abnormal . RBC (test code = See_Comment L [Automated 289-8) message] The sy stem which generated this result transmitted reference range : 3.93 - 5.25 10*6/?L. The reference range was not used to interpret this result as normal/abnormal . HGB (test code = 9.1 g/dL 11.6-15 L 718-7) HCT (test code = 27.8 % 35.7-45.2 L 4544-3) MCV (test code = 104.5 fL 80.6-95.5 H 787-2) MCH (test code = 34.2 pg 25.9-32.8 H 785-6) MCHC (test code = 32.7 g/dL 31.6-35.1 786-4) RDW-SD (test code = 50.4 fL 39-49.9 H 64668-5) RDW-CV (test code = 13.2 % 12-15.5 788-0) PLT (test code = See_Comment [Automated 777-3) message] The sy stem which generated this result transmitted reference range : 166 - 358 10*3/ ?L. The reference r gerardo was not used to interpret this result as normal/abnormal . MPV (test code = 10.6 fL 9.5-12.9 68235-4) NRBC/100 WBC (test See_Comment [Automat ed code = 0124931637) message] The system which generated this result transmitted reference range : 0.0 - 10.0 /100 WBCs. The refer ence range was not u sed to interpret th is result as normal/abnormal . NRBC x10^3 (test code <0.01 See_Comment [Auto mated = 0238894147) message] The s ystem which generated this result transmitted reference range : 10*3/?L. The reference range was not used to interpret this result as normal/abnormal . GRAN MAT (NEUT) % 58.6 % (test code = 770-8) IMM GRAN % (test code 0.30 % = 0674947521) LYMPH % (test code = 27.8 % 736-9) MONO % (test code = 8.1 % 5905-5) EOS % (test code = 4.3 % 713-8) BASO % (test code = 0.9 % 706-2) GRAN MAT x10^3(ANC) 6.47 10*3/uL 1.88-7.09 (test code = 5883218803) IMM GRAN x10^3 (test 0.03 10*3/uL 0-0.06 code = 7193580767) LYMPH x10^3 (test code 3.07 10*3/uL 1.32-3.29 = 731-0) MONO x10^3 (test code 0.89 10*3/uL 0.33-0.92 = 742-7) EOS x10^3 (test code = 0.47 10*3/uL 0.03-0.39 H 711-2) BASO x10^3 (test code 0.10 10*3/uL 0.01-0.07 H = 704-7) Lab Interpretation Abnormal (test code = 04404-7) [facility] ABDOMEN PELVIS WO [id number] 20:58:561. No definite acute intra-abdominal or intrapelvic pathology.2. Multiple low density lesions in thekidneys are not adequatelycharacterized on a noncontrast study. This can be either followed withultrasound or CT using renal mass protocol on nonemergent basis3. A small 2 mm lung nodule in the left lower lobe. Follow-up in one year4. Dilated common bile duct likely represents something phenomenon relatedto cholecystectomy. * * * * * * * * ORIGINAL REPORT * * * * * * * *EXAM: CT SCAN OF THE ABDOMEN AND PELVIS WITHOUT CONTRAST HISTORY: Abd pain, acute, generalized hx of GIST, last creat 2.65,therefore non contrast study TECHNIQUE:3 mm axial images are obtained from diaphragmatic domes tosymphysis pubis without oral or intravenous contrast. Sagittal and coronalreformation is carried out. COMPARISON:None FINDINGS:A small 1.5 mm pleural-based nodule is present in the left lowerlobe (5:16). Lung bases are otherwise clear. No pleural effusion ispresent. Heart size is normal. Calcifications are seen in the mitral valveand the aortic annulus. No pericardial effusion is seen. The liver is normal in size. No definite focal masses are seen in theliver. A small calcification is noted in the dome of the liver. Gallbladder is removed. Common bile duct is dilated. There is minimaldilation of the intrahepatic bile ducts likely representing jumpingphenomenon related to cholecystectomy. The bile duct measures 12 mm. The pancreas is atrophic. No ductal dilation is seen. Spleen is removed. The adrenal glands are normal. Kidneys are normal in size and shape. No renal stone or hydronephrosis isidentified. Multiple low density lesions are present in both kidneys. Thesemeasure 1.7 cm; 1.6 cm and 6 mm on the right, and 1.4 cm; 0.8 mm on theleft. Abdominal aorta is normal in size. Dense atherosclerotic calcificat ions areseen in the aorta, iliac arteries as well as at the origin of both renalarteries. No free fluid or free air is seen in the abdomen. No definiteenlarged lymph nodes are seen. A few nonspecific retroperitoneal lymphnodes are noted, not enlarged by CT criteria. A hiatal hernia is present. Changesof previous gastric surgery are seenwith a gastrojejunostomy. No evidence of bowel obstruction is seen. The uterus is normal. The urinary bladder is contracted and is notcompletely evaluated. No free fluid is seen in the pelvis. No definite enlarged pelvic lymphnodes are seen. Slightly prominent inguinal lymph nodes are seenbilaterally measuring up to 7 mm in transverse diameter. Changes of spondylosis are seen in the lumbar spine. A Schmorl's node isseen in the superior endplate of L3 vertebral body. [facility], Radiant Results Inft User - 11/08/2018 3:59 PM CDT* * * * * * * * ORIGINAL REPORT * * * * * * * *EXAM: CT SCAN OF THE ABDOMEN AND PELVIS WITHOUT CONTRASTHISTORY: Abd pain, acute, generalized hxof GIST, last creat 2.65,therefore non contrast studyTECHNIQUE:3 mm axial images are obtained from diaphragmatic domes tosymphysis pubis without oral or intravenous contrast. Sagittal and coronalreformation is carried out.COMPARISON: NoneFINDINGS:A small 1.5 mm pleural-based nodule is present in the left lowerlobe (5:16). Lung bases are otherwise clear. No pleural effusion ispresent. Heart size is normal. Calcifications are seen in the mitral valveand the aortic annulus. No pericardial effusion is seen.The liver is normal in size. No definite focal masses are seen in theliver. A small calcificationis noted in the dome of the liver.Gallbladder is removed. Common bile duct is dilated. There is minimaldilation of the intrahepatic bile ducts likely representing jumpingphenomenon related to cholecystectomy. The bile duct measures 12 mm.The pancreas is atrophic. No ductal dilation is seen.Spleen is removed. The adrenal glands are normal.Kidneys are normal in size and shape. No renal stone or hydronephrosis isidentified. Multiple low density lesions are present in both kidneys. Thesemeasure 1.7 cm; 1.6 cm and 6 mm on the right, and 1.4 cm; 0.8 mm on theleft.Abdominal aorta is normal in size. Dense atherosclerotic calcifications areseen in the aorta, iliac arteries as well as at the origin of both renalarteries. No free fluid or free air is seen in the abdomen. No definiteenlarged lymph nodes are seen. A few nonspecific retroperitoneal lymphnodes are noted, not enlarged by CT criteria.A hiatal hernia is present. Changes of previous gastric surgery are seenwith a gastrojejunostomy. No evidence ofbowel obstruction is seen.The uterus is normal. The urinary bladder is contracted and is notcompletely evaluated.No free fluid is seen in the pelvis. No definite enlarged pelvic lymphnodes are seen. Slightly prominent inguinal lymph nodes are seenbilaterally measuring up to 7 mm in transverse diameter.Changes of spondylosis are seen in the lumbar spine. A Schmorl's node isseen in the superior endplate of L3 vertebral body.IMPRESSION1. No definite acute intra-abdominal or intrapelvic pathology.2. Multiple low density lesions in the kidneys are not adequatelycharacterized on a noncontrast study. Thiscan be either followed withultrasound or CT using renal mass protocol on nonemergent basis3. A small2 mm lung nodule in the left lower lobe. Follow-up in one year4. Dilated common bile duct likely represents something phenomenon relatedto cholecystectomy.[facility]FERR[facility]IN2017-05-22 11:31:00 Test Item Value Reference Range Interpretation Comments FERRITIN (BEAKER) (test code = 361) 63 ng/mL 5-275 IRON, TIBC, % SAT. (WITHOUT FERRITIN)2016-07-14 11:11:00 Test Item Value Reference Range Interpretation Comments IRON (BEAKER) (test code = 547) 78 ug/dL 40-160 TOTAL IRON BINDING CAPACITY 253 ug/dL 250-450 (BEAKER) (test code = 769) IRON % SATURATION (2) (BEAKER) 31 % 20-55 (test code = 2590) [id number] 09:37:00 Test Item Value Reference Range Interpretation Comments POC-HEMATOCRIT 32 % 36-45 L TESTED AT [facility]-KG 2457 (BEAKER) (test code = [facility] [place] 1857) [id number] 09:37:00 Test Item Value Reference Range Interpretation Comments POC-HEMOGLOBIN 10.9 g/dL 12.0-15.0 L TESTED AT [facility] 2457 (BEAKER) (test code [facility] = 1856) [place] [address] [id number] 09:49:00 Test Item Value Reference Range Interpretation Comments POC-HEMATOCRIT 30 % 36-45 L TESTED AT [place] [address] (BEAKER) (test code = [place] [address]) [id number] 09:49:00 Test Item Value Reference Range Interpretation Comments POC-HEMOGLOBIN 10.2 g/dL 12.0-15.0 L TESTED AT [place] [address] (BEAKER) (test code [facility] = 1856) [place] [address] [id number] 12:15:00 Test Item Value Reference Range Interpretation Comments FERRITIN (BEAKER) (test code = 361) 49 ng/mL 5-275 Effective 01/10/2014: Reference Range ChangeNew: Male 5-275 Previous: Male 22- 322 Female 5-275 Female 10-291IRON, TIBC, % SAT. (WITHOUT FERRITIN)2016-06-16 11:55:00 Test Item Value Reference Range Interpretation Comments IRON (BEAKER) (test code = 547) 46 ug/dL 40-160 TOTAL IRON BINDING CAPACITY 271 ug/dL 250-450 (BEAKER) (test code = 769) IRON % SATURATION (2) (BEAKER) 17 % 20-55 L (test code = 2590) [id number] 10:00:00 Test Item Value Reference Range Interpretation Comments POC-HEMATOCRIT 32 % 36-45 L TESTED AT [place] [address] (BEAKER) (test code = [place] [address]) [id number] 10:00:00 Test Item Value Reference Range Interpretation Comments POC-HEMOGLOBIN 10.9 g/dL 12.0-15.0 L TESTED AT [place] [id number] (BEAKER) (test code [facility] = 1856) [place] [address] [id number] 10:08:00 Test Item Value Reference Range Interpretation Comments POC-HEMATOCRIT 34 % 36-45 L TESTED AT [place] [address] (BEAKER) (test code = [place] [address]) [id number] 10:08:00 Test Item Value Reference Range Interpretation Comments POC-HEMOGLOBIN 11.6 g/dL 12.0-15.0 L TESTED AT [facility]-KG 2457 (BEAKER) (test code [facility] = 1856) [place] [address] [id number] 11:38:00 Test Item Value Reference Range Interpretation Comments POC-HEMATOCRIT 27 % 36-45 L TESTED AT [facility]-KG 2457 (BEAKER) (test code = [facility] [place] 1857) [id number] 11:38:00 Test Item Value Reference Range Interpretation Comments POC-HEMOGLOBIN 9.2 g/dL 12.0-15.0 L TESTED AT [facility]-KG 2457 (BEAKER) (test code [facility] = 1856) [place] [address] [id number] 16:32:00 Test Item Value Reference Range Interpretation Comments FERRITIN (BEAKER) (test code = 361) 64 ng/mL 5-275 Effective 01/10/2014: Reference Range ChangeNew: Male 5-275 Previous: Male 22- 322 Female 5-275 Female 10-291IRON, TIBC, % SAT. (WITHOUT FERRITIN)2016-05-01 14:37:00 Test Item Value Reference Range Interpretation Comments IRON (BEAKER) (test code = 547) 97 ug/dL 40-160 TOTAL IRON BINDING CAPACITY 258 ug/dL 250-450 (BEAKER) (test code = 769) IRON % SATURATION (2) (BEAKER) 38 % 20-55 (test code = 2590) [id number] 09:55:00 Test Item Value Reference Range Interpretation Comments POC-HEMATOCRIT 30 % 36-45 L TESTED AT [facility]-KG 2457 (BEAKER) (test code = [facility] 1857) [id number] 09:55:00 Test Item Value Reference Range Interpretation Comments POC-HEMOGLOBIN 10.2 g/dL 12.0-15.0 L TESTED AT [facility]-KG 2457 (BEAKER) (test code [facility] = 1856) [place] [address]"
--- NOTE | 2021-12-31 20:08 | RAD REPORT ---
EXAM DESCRIPTION: CT - Ct Stroke Brain Wo Cont - 12/31/2021 8:01 pm CLINICAL HISTORY: visual field defect Headache, CVA symptomology COMPARISON: Head Brain Wo Cont dated 10/24/2020 TECHNIQUE: All CT scans are performed using dose optimization technique as appropriate and may inclu de automated exposure control or mA/KV adjustment according to patient size. FINDINGS: No intracranial hemorrhage, hydrocephalus or extra-axial fluid collection.3.5 x 2.5 cm are a of diminished density medial right occipital lobe likely represent right posterior cerebral artery territory nonhemorrhagic infarct. The paranasal sinuses and mastoids are clear. The calvarium is intact. 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 The findings were discussed with Dr. Araujo in the ER on 12/31/2021 at 8:01 p.m. by telephone.
[2021-12-31 20:20] LABS: Absolute Lymphocytes (CBC) 2.5 K/uL (0.7-4.9); Hematocrit 32.5 % (36.0-45.0); Lymphocytes % 31.2 % (15.3-44.8); MCV 102.7 fL (80-100); MPV 8.3 fL (7.6-11.3); RBC Red Blood Cell Count 3.16 M/uL (3.86-4.86)
[2021-12-31 20:26] LABS: Protime INR 0.9
[2021-12-31] MEDS ORDERED: NA CHLORIDE 0.9% 1,000 ML ONE (21:04)
--- NOTE | 2021-12-31 21:08 | RAD REPORT ---
EXAM DESCRIPTION: CT - Head angio - 12/31/2021 8:57 pm CLINICAL HISTORY: Headache COMPARISON: Ct Stroke Brain Wo Cont dated 12/31/2021; Head Brain Wo Cont dated 10/24/2020 TECHNIQUE: CT angiography of the head was performed with MIPs. All CT scans are performed using dose optimization technique as appropriate and may include automated exposure control or mA/KV adjustment according to patient size. FINDINGS: No evidence of aneurysm is detected. No flow-limiting stenosis or vascular malformation id entified. No large vessel occlusion seen. Antegrade flow is seen in the vertebral arteries. The vertebral arteries are codominant. The visualized dural venous sinuses are patent. IMPRESSION: No significant flow abnormality is detected.
--- NOTE | 2021-12-31 21:14 | RAD REPORT ---
EXAM DESCRIPTION: CT - Neck Angio - 12/31/2021 8:58 pm CLINICAL HISTORY: Headache Headache, CVA COMPARISON: No comparisons TECHNIQUE: CT angiography of the neck vessels was performed with MIPs. All CT scans are performed using dose optimization technique as appropriate and may include automated exposure control or mA/KV adjustment according to patient size. FINDINGS: A left aortic arch is identified with normal three vessel configuration of the great vesse ls. No significant flow abnormality is seen of the common carotid bilaterally. Mild atherosclerotic plaqu e is seen in both distal common carotid arteries. Mild mixed plaque is seen in both proximal internal carotid arteries. Stenosis of the carotid bulbs b ilaterally based on NASCET criteria is estimated at below 50%. Normal flow is seen within both vertebral arteries. IMPRESSION: No significant carotid stenosis is identified.
--- NOTE | 2021-12-31 21:37 | EDPHYS ---
Physician Documentation [facility] Name: Stephenie Blas Age: 71 yrs Sex: Female : 1950 Arrival Date: 12/31/2021 Time: 19:26 Bed 5 Private MD: ED Physician Sebastien Araujo HPI: 12/31 19:53 This 71 yrs old Female presents to ER via Ambulatory with complaints of Blurred Vision, sp3 Headache. 19:53 71-year-old female with stage III kidney disease, hypertension, hypothyroidism presents sp3 to the ED with vision and mild headache that started as soon as she woke up at 6:30 AM. She states that she went to bed in a normal state. He was having blurry vision predominantly on the left side, she went to her media analytics manager who performed a dilated exam as well as a visual field test. Visual field test demonstrated left upper visual field defect and referred her to the ED for further evaluation. Headache is described as mild and left-sided radiating around to the posterior aspect of her head. No other symptoms reported including neck pain, trauma, facial pain, facial droop, speech abnormality, memory loss, chest pain, shortness of breath, back pain, abdominal pain, nausea, vomiting, diarrhea, extremity weakness, changes in sensation, syncope, near syncope changes in gait, or any other concerns on ROS at this time.. Historical: - Allergies: 19:35 No Known Allergies; [facility] - Home Meds: 19:35 None [Active]; [facility] - PMHx: 19:35 None; [facility] - Immunization history:: Adult Immunizations up to date. - Social history:: Smoking status: Patient denies any tobacco usage or history of. ROS: 19:58 Constitutional: Negative for fever, chills, and weight loss, ENT: Negative for injury, sp3 pain, and discharge, Neck: Negative for injury, pain, and swelling, Cardiovascular: Negative for chest pain, palpitations, and edema, Respiratory: Negative for shortness of breath, cough, wheezing, and pleuritic chest pain, Abdomen/GI: Negative for abdominal pain, nausea, vomiting, diarrhea, and constipation, Back: Negative for injury and pain, MS/Extremity: Negative for injury and deformity, Skin: Negative for injury, rash, and discoloration, Psych: Negative for depression, anxiety, suicide ideation, homicidal ideation, and hallucinations, Allergy/Immunology: Negative for hives, rash, and allergies, Endocrine: Negative for neck swelling, polydipsia, polyuria, polyphagia, and marked weight changes, Hematologic/Lymphatic: Negative for swollen nodes, abnormal bleeding, and unusual bruising. 19:58 All other systems are negative. Exam: 19:58 Constitutional: This is a well developed, well nourished patient who is awake, alert, sp3 and in no acute distress. Head/Face: Normocephalic, atraumatic. Eyes: Pupils equal round and reactive to light, extra-ocular motions intact. Lids and lashes normal. Conjunctiva and sclera are non-icteric and not injected. Cornea within normal limits. Periorbital areas with no swelling, redness, or edema. ENT: Nares patent. No nasal discharge, no septal abnormalities noted. External auditory canals are clear. Oropharynx with no redness, swelling, or masses, exudates, or evidence of obstruction, uvula midline. Mucous membranes moist. Neck: Trachea midline, no thyromegaly or masses palpated, and no cervical lymphadenopathy. Supple, full range of motion without nuchal rigidity, or vertebral point tenderness. No Meningismus. Chest/axilla: Normal chest wall appearance and motion. Nontender with no deformity. No lesions are appreciated. Cardiovascular: Regular rate and rhythm with a normal S1 and S2. No gallops, murmurs, or rubs. Normal PMI, no JVD. No pulse deficits. Respiratory: Lungs have equal breath sounds bilaterally, clear to auscultation and percussion. No rales, rhonchi or wheezes noted. No increased work of breathing, no retractions or nasal flaring. Abdomen/GI: Soft, non-tender, with normal bowel sounds. No distension or tympany. No guarding or rebound. No evidence of tenderness throughout. Back: No spinal tenderness. No costovertebral tenderness. Full range of motion. Skin: Warm, dry with normal turgor. Normal color with no rashes, no lesions, and no evidence of cellulitis. MS/ Extremity: Pulses equal, no cyanosis. Neurovascular intact. Full, normal range of motion. 19:58 Neuro: Visual field defect noted in the left upper quadrants of both eyes. Remainder of cranial nerves II through XII are intact and normal. Speech and memory are within normal expectations. Motor sensory exam including pin and temperature and proprioception are within normal limits as well as gait.. 20:56 ECG was reviewed by the Attending Physician. KG demonstrates normal sinus rhythm at 62 sp3 bpm with normal intervals, normal QRS, leftward axis, nonspecific diffuse ST/T changes without evidence of acute ischemia. Vital Signs: 19:34 BP 161 / 64; Pulse 59; Resp 18; Temp 98.4; Pulse Ox 99% ; Weight 78.47 kg; Height 5 ft. jh5 7 in. (170.18 cm); Pain 0/10; 21:16 BP 177 / 62; Pulse 69; Resp 15; Pulse Ox 99% ; ll3 22:37 BP 178 / 76; Pulse 67; Resp 14; Pulse Ox 98% on R/A; ll3 23:00 BP 154 / 74; Pulse 63; Resp 13; Pulse Ox 95% ; vc1 19:34 Body Mass Index 27.10 (78.47 kg, 170.18 cm) jh5 NIH Stroke Scale Scores: 20:30 NIHSS Score: 1 ll3 MDM: 19:48 Patient medically screened. sp3 19:59 Data reviewed: vital signs, nurses notes. ED course: 71-year-old female with visual sp3 field defect and headache referred here by media analytics manager for further evaluation. Differential diagnosis includes ischemic CVA, hemorrhagic CVA/ICH, tumor or mass, optic chiasm mass, temporal arteritis, atypical migraine, among others. At this time I am not highly suspicious for sepsis, shock, ACS, vascular dissection, or any other critical findings at this time. Work-up will include CT scan of the head including angiogram, laboratory values, EKG, and serial neurological exams with ultimate disposition pending full work-up results.. 20:29 ED course: Discussed with Dr. Ellis who also agrees to a CTA will be good to rule sp3 out large vessel occlusion despite her creatinine being 3. I discussed pros and cons with the patient who agrees with the risk profile. We will send patient immediately to CT scan for repeat CT this time as an angiogram. Depending on that, we will decide on keeping patient here versus sending her to [place] for further intravascular intervention.. 21:35 ED course: CTA demonstrates no large vessel occlusion or other critical findings. Will sp3 admit patient to hospitalist service for further work-up.. 12/31 19:49 Order name: Basic Metabolic Panel sp3 12/31 19:49 Order name: CBC with Diff; Complete Time: 21:34 sp3 12/31 19:49 Order name: High Sensitivity Troponin sp3 12/31 19:49 Order name: Protime (+inr); Complete Time: 21:34 sp3 12/31 19:49 Order name: Ptt, Activated; Complete Time: 21:34 sp3 12/31 19:57 Order name: Sed Rate; Complete Time: 21:34 sp3 12/31 19:49 Order name: CT Stroke Brain w/o Contrast sp3 12/31 19:53 Order name: Ct Stroke Brain Wo Cont; Complete Time: 20:12 EDMS 12/31 20:26 Order name: CREATININE WHOLE BLOOD; Complete Time: 21:34 EDMS 12/31 20:43 Order name: CT Head Angio; Complete Time: 21:34 wm 12/31 20:43 Order name: CT Neck Angio; Complete Time: 21:34 wm 12/31 21:36 Order name: SARS RAPID la1 12/31 19:49 Order name: EKG; Complete Time: 19:49 sp3 12/31 19:49 Order name: Cardiac monitoring; Complete Time: 20:27 sp3 12/31 19:49 Order name: EKG - Nurse/Tech; Complete Time: 20:27 sp3 12/31 19:49 Order name: IV Saline Lock; Complete Time: 20:12 sp3 12/31 19:49 Order name: Labs collected and sent; Complete Time: 20:12 sp3 12/31 19:49 Order name: NPO; Complete Time: 20:14 sp3 12/31 19:49 Order name: O2 Sat Monitoring; Complete Time: 20:14 sp3 Administered Medications: 21:12 Drug: NS 0.9% 1000 ml Route: IV; Rate: 1 bolus; Site: left antecubital; ll3 22:36 Drug: Melatonin 5 mg Route: PO; ll3 22:36 Drug: HYDROcodone-acetaminophen 5 mg-325 mg 1 tabs Route: PO; ll3 22:36 Drug: Aspirin Chewable Tablet 162 mg Route: PO; ll3 Disposition Summary: 12/31/21 21:37 Hospitalization Ordered Hospitalization Status: Inpatient Admission sp3 Provider: Vivek, [place] sp3 Location: Telemetry/MedSurg (Inpatient) sp3 Condition: Stable sp3 Problem: new sp3 Symptoms: are unchanged sp3 Bed/Room Type: Standard sp3 Room Assignment: 228(12/31/21 23:30) mw Diagnosis - Ischemic CVA sp3 Forms: - Medication Reconciliation Form sp3 - SBAR form sp3 NIH Stroke Scale - NIH Stroke Score Date: 12/31/2021 Time: 20:30 Total Score = 1 1a. Level of Consciousness (LOC) - 0(Alert) 1b. Level of Consciousness (LOC) (Month \T\ Age) - 0(Both) 1c. LOC Commands (Open \T\ Closes Eyes/Chrome Worker) - 0(Both) 2. Best Gaze (Lateral Gaze Paresis) - 0(Normal) 3. Visual Field Loss - 1(Partial hemianopia) 4. Facial Palsy - 0(Normal) 5a. Left Arm: Motor (10-second hold) - 0(No drift) 5b. Right Arm: Motor (10-second hold) - 0(No drift) 6a. Left Leg: Motor (5-second hold - always test supine) - 0(No drift) 6b. Right Leg: Motor (5-second hold - always test supine) - 0(No drift) 7. Limb Ataxia (finger/nose \T\ heel/bolaños - test with eyes open) - 0(Absent) 8. Sensory Loss (pinprick arms/legs/face) - 0(Normal) 9. Best Language: Aphasia (description/naming/reading) - 0(No aphasia) 10. Dysarthria (speech clarity - read or repeat words) - 0(Normal) 11. Extinction and Inattention (visual/tactile/auditory/spatial/personal) - 0(No abnormality) Initials: ll3 Signatures: Dispatcher [employer] EDMS Kierra Quinonez RN RN mw Aurelio Stinson, LOWELL-C ADJ[employer]CT ART HISTORY INSTRUCTOR-Cla1 Sebastien Araujo MD MD sp3 Diandra Suarez RN RN 5 Jessica Vogel RN RN ll3 Corrections: (The following items were deleted from the chart) 19:58 19:53 71-year-old female with no significant past medical history on no sp3 medications presents to the ED with vision and mild headache that started as soon as she woke up at 6:30 AM. She states that she went to bed in a normal state. He was having blurry vision predominantly on the left side, she went to her media analytics manager who performed a dilated exam as well as a visual field test. Visual field test demonstrated left upper visual field defect and referred her to the ED for further evaluation. No other symptoms reported including neck pain, trauma, facial pain, facial droop, speech abnormality, memory loss, chest pain, shortness of breath, back pain, abdominal pain, nausea, vomiting, diarrhea, extremity weakness, changes in sensation, syncope, near syncope changes in gait, or any other concerns on ROS at this time.. sp3 20:13 19:57 Head Angio+CT.RAD.BRZ ordered. EDMS EDMS 20:13 20:10 Neck Angio ordered. EDCO EDMS 20:17 19:53 71-year-old female with no significant past medical history on no sp3 medications presents to the ED with vision and mild headache that started as soon as she woke up at 6:30 AM. She states that she went to bed in a normal state. He was having blurry vision predominantly on the left side, she went to her media analytics manager who performed a dilated exam as well as a visual field test. Visual field test demonstrated left upper visual field defect and referred her to the ED for further evaluation. Headache is described as mild and left-sided radiating around to the posterior aspect of her head. No other symptoms reported including neck pain, trauma, facial pain, facial droop, speech abnormality, memory loss, chest pain, shortness of breath, back pain, abdominal pain, nausea, vomiting, diarrhea, extremity weakness, changes in sensation, syncope, near syncope changes in gait, or any other concerns on ROS at this time.. sp3 23:30 21:37 sp3 mw
--- NOTE | 2021-12-31 21:37 | ER ---
Nurse's Notes [facility] Name: Stephenie Blas Age: 71 yrs Sex: Female : 1950 Arrival Date: 12/31/2021 Time: 19:26 Bed 5 Private MD: Diagnosis: Ischemic CVA Presentation: 12/31 19:34 Chief complaint: Patient states: blurred vision and headache since 0630 am today; went [facility] to eye doctor and was told to come here to rule out stroke. Coronavirus screen: Vaccine status: Patient reports being unvaccinated. Client denies travel out of the [place] in the last 14 days. Ebola Screen: Patient negative for fever greater than or equal to 101.5 degrees Fahrenheit, and additional compatible Ebola Virus Disease symptoms Patient denies exposure to infectious person. Patient denies travel to an Ebola-affected area in the 21 days before illness onset. Initial Sepsis Screen: Does the patient meet any 2 criteria? No. Patient's initial sepsis screen is negative. Does the patient have a suspected source of infection? No. Patient's initial sepsis screen is negative. Risk Assessment: Do you want to hurt yourself or someone else? Patient reports no desire to harm self or others. 19:34 Method Of Arrival: Ambulatory [facility] 19:34 Acuity: SHO 3 [facility] 23:30 Onset of symptoms was December 31, 2021 at 06:30. ll3 Triage Assessment: 19:35 Headache History: Denies prior headaches. General: Appears in no apparent distress. [facility] slender, well groomed, well developed, Behavior is calm, cooperative, appropriate for age. Pain: Pain. Neuro: No deficits noted. 19:35 Pain: Also complains of blurred vision. vc1 Historical: - Allergies: 19:35 No Known Allergies; [facility] - Home Meds: 19:35 None [Active]; [facility] - PMHx: 19:35 None; [facility] - Immunization history:: Adult Immunizations up to date. - Social history:: Smoking status: Patient denies any tobacco usage or history of. Screenin:37 Abuse screen: Denies threats or abuse. Denies injuries from another. Nutritional ll3 screening: No deficits noted. Tuberculosis screening: No symptoms or risk factors identified. Fall Risk No fall in past 12 months (0 pts). No secondary diagnosis (0 pts). IV access (20 points). Ambulatory Aid- None/Bed Rest/Nurse Assist (0 pts). Gait- Normal/Bed Rest/Wheelchair (0 pts) Mental Status- Oriented to own ability (0 pts). Total Pozo Fall Scale indicates No Risk (0-24 pts). Assessment: 19:45 General: Appears in no apparent distress. uncomfortable, Behavior is calm, cooperative. ll3 Pain: Complains of pain in H/A Pain does not radiate. Pain currently is 5 out of 10 on a pain scale. Quality of pain is described as pressure, Pain began 0630 Is continuous. Neuro: Level of Consciousness is awake, alert, obeys commands, Oriented to person, place, time, situation. Neuro: Reports blurred vision since 0630 dizziness, since 0630 headache. Cardiovascular: Patient's skin is warm and dry. Respiratory: Respiratory effort is even, unlabored, Respiratory pattern is regular, symmetrical. Derm: Skin is pink, warm \T\ dry. Musculoskeletal: Circulation, motion, and sensation intact. 21:00 Reassessment: No changes from previously documented assessment. Patient and/or family ll3 updated on plan of care and expected duration. Pain level reassessed. Patient is alert, oriented x 3, equal unlabored respirations, skin warm/dry/pink. 22:38 Reassessment: No changes from previously documented assessment. Patient and/or family ll3 updated on plan of care and expected duration. Pain level reassessed. Patient is alert, oriented x 3, equal unlabored respirations, skin warm/dry/pink. 23:11 Reassessment: No changes from previously documented assessment. Patient and/or family vc1 updated on plan of care and expected duration. Pain level reassessed. Patient states symptoms have not improved. 23:32 Reassessment: Attempted to give report, nurse will call back. vc1 Vital Signs: 19:34 BP 161 / 64; Pulse 59; Resp 18; Temp 98.4; Pulse Ox 99% ; Weight 78.47 kg; Height 5 ft. jh5 7 in. (170.18 cm); Pain 0/10; 21:16 BP 177 / 62; Pulse 69; Resp 15; Pulse Ox 99% ; ll3 22:37 BP 178 / 76; Pulse 67; Resp 14; Pulse Ox 98% on R/A; ll3 23:00 BP 154 / 74; Pulse 63; Resp 13; Pulse Ox 95% ; vc1 19:34 Body Mass Index 27.10 (78.47 kg, 170.18 cm) jh5 NIH Stroke Scale Scores: 20:30 NIHSS Score: 1 ll3 ED Course: 19:26 Patient arrived in ED. ja2 19:29 Sebastien Araujo MD is Attending Physician. sp3 19:35 Triage completed. jh5 19:35 Arm band placed on right wrist. jh5 20:03 Ct Stroke Brain Wo Cont In Process Unspecified. EDMS 20:11 Inserted saline lock: 20 gauge in left antecubital area, using aseptic technique. aa5 20:11 Sed Rate Sent. aa5 20:12 Basic Metabolic Panel Sent. aa5 20:12 CBC with Diff Sent. aa5 20:12 High Sensitivity Troponin Sent. aa5 20:12 Protime (+inr) Sent. aa5 20:12 Ptt, Activated Sent. aa5 20:59 CT Head Angio In Process Unspecified. EDMS 20:59 CT Neck Angio In Process Unspecified. EDMS 21:37 Rome Doyle MD is Hospitalizing Provider. sp3 21:41 Note: Pt creatine 3.3 on istat informed Van in ER and neurologist requested exam. eh4 Informed Bhanu and was approved to receive contrast by Dr. Araujo and . 22:37 Patient has correct armband on for positive identification. Bed in low position. Call ll3 light in reach. Side rails up X 1. Adult w/ patient. 23:30 No provider procedures requiring assistance completed. ll3 23:41 Patient admitted, IV remains in place. vc1 Administered Medications: 21:12 Drug: NS 0.9% 1000 ml Route: IV; Rate: 1 bolus; Site: left antecubital; ll3 22:36 Drug: Melatonin 5 mg Route: PO; ll3 22:36 Drug: HYDROcodone-acetaminophen 5 mg-325 mg 1 tabs Route: PO; ll3 22:36 Drug: Aspirin Chewable Tablet 162 mg Route: PO; ll3 Medication: 23:30 VIS not applicable for this client. ll3 Outcome: 21:37 Decision to Hospitalize by Provider. sp3 23:41 Admitted to Med/surg accompanied by tech, via wheelchair, room 228. vc1 23:41 Condition: good 23:41 Instructed on the need for admit. 23:48 Patient left the ED. ll3 NIH Stroke Scale - NIH Stroke Score Date: 12/31/2021 Time: 20:30 Total Score = 1 1a. Level of Consciousness (LOC) - 0(Alert) 1b. Level of Consciousness (LOC) (Month \T\ Age) - 0(Both) 1c. LOC Commands (Open \T\ Closes Eyes/Lance Crewmember) - 0(Both) 2. Best Gaze (Lateral Gaze Paresis) - 0(Normal) 3. Visual Field Loss - 1(Partial hemianopia) 4. Facial Palsy - 0(Normal) 5a. Left Arm: Motor (10-second hold) - 0(No drift) 5b. Right Arm: Motor (10-second hold) - 0(No drift) 6a. Left Leg: Motor (5-second hold - always test supine) - 0(No drift) 6b. Right Leg: Motor (5-second hold - always test supine) - 0(No drift) 7. Limb Ataxia (finger/nose \T\ heel/bolaños - test with eyes open) - 0(Absent) 8. Sensory Loss (pinprick arms/legs/face) - 0(Normal) 9. Best Language: Aphasia (description/naming/reading) - 0(No aphasia) 10. Dysarthria (speech clarity - read or repeat words) - 0(Normal) 11. Extinction and Inattention (visual/tactile/auditory/spatial/personal) - 0(No abnormality) Initials: ll3 Signatures: Dispatcher [employer] EDMS Alexa Bowen, RN RN aa5 Sebastien Araujo MD MD sp3 Diandra Colin 2 Diandra Suarez RN RN jh5 Jessica Vogel RN RN ll3 Carmen Davis RN RN vc1 Nena Durand 4 Corrections: (The following items were deleted from the chart) 21:16 21:13 General: Appears in no apparent distress. uncomfortable, Behavior is ll3 calm, cooperative, ll3 21:16 21:13 Pain: Complains of pain in H/A Pain does not radiate. Pain currently is 5 ll3 out of 10 on a pain scale. Quality of pain is described as pressure, Pain began 0630 Is continuous, ll3 : 21:13 Neuro: Level of Consciousness is awake, alert, obeys commands, Oriented ll3 to person, place, time, situation, ll3 : 21: Derm: Skin is pink, warm \T\ dry. ll3 ll3 : 21: Cardiovascular: Patient's skin is warm and dry. ll3 ll3 : 21: Neuro: Reports blurred vision since 0630 dizziness, since 0630 headache ll3 ll3 : 21: Respiratory: Respiratory effort is even, unlabored, Respiratory pattern ll3 is regular, symmetrical, ll3 : 21: Musculoskeletal: Circulation, motion, and sensation intact. ll3 ll3 23:30 23:28 NIHSS Score: 1 ll3 ll3
[2021-12-31 21:42] LABS: Potassium 4.1 mmol/L (3.5-5.1); Troponin High Sensitivity 24.5 pg/mL (<58.9)
--- NOTE | 2021-12-31 22:24 | P.HP ---
Certification for Inpatient Patient admitted to: Inpatient With expected LOS: >2 Midnights Patient will require the following post-hospital care: None Practitioner: I am a practitioner with admitting privileges, knowledge of patient current condition, hospital course, and medical plan of care. Services: Services provided to patient in accordance with Admission requirements found in Title 42 Section 412.3 of the Code of Federal Regulations <Aurelio Stinson - Last Filed: 12/31/21 22:19> Patient History Date of Service: 12/31/21 History of Present Illness: 71-year-old female with history of CKD 4, hypertension, GERD presents to the emergency department for visual changes, headache. She reports that her symptoms began at 0630 when she woke up this morning. She was seen by an eye doctor who noted bilateral left visual field deficits and referred to the emergency department for further evaluation. She presented to the emergency department outside window for TN K, she was evaluated in the emergency department her labs were significant for redemonstration of her CKD 4 which appears to be stable CT of the head without contrast showed 3.5 cm right posterior cerebral artery territory nonhemorrhagic infarct. ED provider discussed case with neurology on-call they are both in agreement that patient would benefit with CTA head and neck taking to consideration her current renal function, CT of the head and neck were performed which were negative for LVO. Neurology okayed the patient stay here for further evaluation/management of acute CVA. - Past Medical/Surgical History Diabetic: Yes -: CKD 4 -: Hypertension -: GERD -: Stomach surgery Psychosocial/ Personal History: Lives at home with family - Family History Father -: Heart disease, Diabetes Mother -: Heart disease - Social History Smoking Status: Never smoker Alcohol use: No CD- Drugs: No Caffeine use: Yes Place of Residence: Home <Aurelio Stinson - Last Filed: 12/31/21 22:19> Date of Service: 01/01/22 <Rome Doyle - Last Filed: 01/01/22 19:16> Allergies morphine Allergy (Verified 01/01/22 00:03) Itching sumatriptan [From Imitrex] Allergy (Verified 01/01/22 00:03) hypertension Home Medications: Amlodipine Besylate 5 mg PO DAILY 08/01/16 allopurinoL [Zyloprim] 100 mg PO DAILY 08/01/16 Aspirin 81 mg PO DAILY 01/01/22 Cholecalciferol (Vitamin D3) [Vitamin D 5,000 IU Cap*] 5,000 iu PO DAILY 01/01/22 Imatinib Mesylate [Gleevec] 200 mg PO BEDTIME 01/01/22 Levothyroxine [Synthroid*] 0.125 mg PO DAILY 01/01/22 Omeprazole 40 mg PO DAILY 01/01/22 Sodium Bicarbonate 650 mg PO BID 01/01/22 Review of Systems 10-point ROS is otherwise unremarkable Neurological: As per HPI (Visual changes, headache) <Aurelio Stinson - Last Filed: 12/31/21 22:19> Physical Examination - Physical Exam General: Alert, In no apparent distress, Oriented x3 HEENT: Atraumatic, PERRLA, Mucous membr. moist/pink, EOMI, Sclerae nonicteric Neck: Supple, 2+ carotid pulse no bruit, No LAD, Without JVD or thyroid abnormality Respiratory: Clear to auscultation bilaterally, Normal air movement Cardiovascular: Regular rate/rhythm, Normal S1 S2 Gastrointestinal: Normal bowel sounds, No tenderness Musculoskeletal: No tenderness Integumentary: No rashes Neurological: Normal gait, Normal speech, Normal strength at 5/5 x4 extr, Normal tone, Sensation intact, Cranial nerves 3-12 intact, Normal affect, Other (Bilateral hemianopia) - Studies Laboratory Data (last 24 hrs) 12/31/21 20:00: PT 9.9, INR 0.90, APTT 21.0 L 12/31/21 20:00: WBC 8.10, Hgb 10.6 L, Hct 32.5 L, Plt Count 375 12/31/21 20:00: Sodium 139, Potassium 4.1, BUN 41 H, Creatinine 3.24 H, Glucose 166 H <Aurelio Stinson - Last Filed: 12/31/21 22:19> - Studies Laboratory Data (last 24 hrs) 12/31/21 20:00: PT 9.9, INR 0.90, APTT 21.0 L 12/31/21 20:00: WBC 8.10, Hgb 10.6 L, Hct 32.5 L, Plt Count 375 12/31/21 20:00: Sodium 139, Potassium 4.1, BUN 41 H, Creatinine 3.24 H, Glucose 166 H <Rome Doyle - Last Filed: 01/01/22 19:16> Assessment and Plan - Plan Assessment: Acute CVA resulting in bilateral hemianopia CKD 4 Hypertension GERD Plan: Acute CVA resulting in bilateral hemianopia: Patient arrived outside window for TNK, CT angios negative for LVO, neurology consult in place. NIH is 3 for bilateral hemianopia. Neurochecks in place, obtain MRI, echo, carotid Doppler. Physical therapy consult in place patient takes daily aspirin at home already continue with aspirin, Plavix, statin, folic acid. Appreciate further input from neurology. CKD 4: Stable from most recent visit, nephrology consulted. Hypertension: Allow for permissive hypertension as evening, restart home medications when appropriate. GERD: Continue medications. DVT PPX: Heparin Code status: Full Discharge Plan: Home Plan to discharge in: 48 Hours - Advance Directives Does patient have a Living Will: No Does patient have a Durable POA for Healthcare: No - Code Status/Comfort Care Code Status Assessed: Yes (Full code) Critical Care: No Time Spent Managing Pts Care (In Minutes): 70 <Aurelio Stinson - Last Filed: 12/31/21 22:19> Physician Review: Patient Assessed, Agree with Above Assessment and Plan <Rome Doyle - Last Filed: 01/01/22 19:16>
[2021-12-31] MEDS ORDERED: ASPIRIN 81 MG CHEWABLE TABLET ONE (22:29)
[2021-12-31] MEDS ORDERED: MELATONIN 5 MG TABLET PO ONE (22:29)
[2021-12-31] MEDS ORDERED: HYDROCODONE/APAP 5/325 MG TAB ONE (22:30)
[2021-12-31 23:29] LABS: SARS-CoV-2 Antigen Rapid Res Negative (Negative)
[2021-12-31] MEDS ORDERED: ONDANSETRON 4 MG/2 ML VIAL IV PRN (23:47)
[2021-12-31] MEDS ORDERED: NA CHLORIDE 0.9% 1,000 ML IV SCH (23:47)
[2021-12-31] MEDS ORDERED: MELATONIN 5 MG TABLET PO PRN (23:47)
[2021-12-31 23:57] VITALS: BMI 28.0
[2022-01-01 00:38] VITALS: O2SAT 94
[2022-01-01 06:28] LABS: Absolute Lymphocytes (CBC) 2.2 K/uL (0.7-4.9); Hematocrit 28.6 % (36.0-45.0); Lymphocytes % 30.7 % (15.3-44.8); MCV 102.4 fL (80-100); MPV 8.5 fL (7.6-11.3)
[2022-01-01 07:06] LABS: Bilirubin Total 0.4 mg/dL (0.2-1.0); Potassium 4.1 mmol/L (3.5-5.1); Protein, Total 6.1 g/dL (6.4-8.2); Thyroid Stimulating Hormone 0.291 uIU/mL (0.360-3.740)
--- NOTE | 2022-01-01 07:30 | RAD REPORT ---
EXAM DESCRIPTION: US - CP - 01/01/2022 6:36 am CLINICAL HISTORY: cva COMPARISON: Neck Angio dated 12/31/2021 TECHNIQUE: Real-time sonographic evaluation of both carotid systems was performed. Doppler interroga tion was performed with waveform tracing bilaterally. FINDINGS: Normal high resistance waveforms are noted in both external carotid arteries. The common c arotid arteries and internal carotid arteries show normal low resistance waveforms. Soft plaque present both carotid bulbs, right external carotid artery, and left distal common carotid artery. Peak systolic and end diastolic velocity values and the ICA/CCA ratios are in the non-hemody namically significant range. Antegrade flow seen in both vertebral arteries. IMPRESSION: Mild soft plaque noted. No evidence of a hemodynamically significant stenosis.
[2022-01-01] MEDS ORDERED: CLOPIDOGREL 75 MG TABLET PO SCH (09:00)
[2022-01-01] MEDS: FOLIC ACID 1 MG TABLET PO SCH (09:49)
[2022-01-01] MEDS: HEPARIN 5000 UNIT/ML 1 ML VIAL SQ SCH ×2 (09:49→20:28)
[2022-01-01] MEDS: CLOPIDOGREL 75 MG TABLET PO SCH (09:49)
[2022-01-01] MEDS: ASPIRIN EC 81 MG TAB PO SCH (09:55)
--- NOTE | 2022-01-01 11:00 | RAD REPORT ---
EXAM DESCRIPTION: MRI - Brain Wo Cont - 01/01/2022 10:45 am CLINICAL HISTORY: cva COMPARISON: Head angio dated 12/31/2021; Neck Angio dated 12/31/2021; Ct Stroke Brain Wo Cont dated TECHNIQUE: Sagittal T1-weighted images were obtained along with PD/heavily T2-weighted and T2-FLAIR images. Axial DWI and ADC mapping sequences were also obtained along with coronal heavily T2-weighted images were obtained. FINDINGS: Acute infarct present within the medial aspect of the right occipital lobe as noted on the CT. No other areas of infarct identified. No acute intracranial hemorrhage. No mass effect or midlin e shift. Flow voids are unremarkable. No mastoid effusion. Paranasal sinuses are well aerated. IMPRESSION: Acute infarct in the medial right occipital lobe. No other infarcts identified.
--- NOTE | 2022-01-01 12:01 | P.CNS ---
Date of Consult: 01/01/22 Reason for Consult: CKD IV, risk for JOSE Requesting Physician: Aurelio Stinson Chief Complaint: Acute vision changes, MARES History of Present Illness: 71-year-old female with history of chronic hypertension, reportedly reasonably controlled, advanced CKD for many years under the care of Dr. 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 She reports that her symptoms began at 0630 when she woke up yesterday morning. She was seen by an eye doctor who noted bilateral left visual field deficits and referred to the emergency department for further evaluation. She presented to the emergency department outside window for TNK. CT of the head without contrast showed 3.5 cm right posterior cerebral artery territory nonhemorrhagic infarct. Pt received CTA studies of the head and neck despite her renal insufficiency but she was placed on IVF hydration. Renal service consulted for further management. Allergies morphine Allergy (Verified 01/01/22 00:03) Itching sumatriptan [From Imitrex] Allergy (Verified 01/01/22 00:03) hypertension Home Medications: Amlodipine Besylate 5 mg PO DAILY 08/01/16 allopurinoL [Zyloprim] 100 mg PO DAILY 08/01/16 Aspirin 81 mg PO DAILY 01/01/22 Cholecalciferol (Vitamin D3) [Vitamin D 5,000 IU Cap*] 5,000 iu PO DAILY 01/01/22 Imatinib Mesylate [Gleevec] 200 mg PO BEDTIME 01/01/22 Levothyroxine [Synthroid*] 0.125 mg PO DAILY 01/01/22 Omeprazole 40 mg PO DAILY 01/01/22 Sodium Bicarbonate 650 mg PO BID 01/01/22 - Past Medical/Surgical History Diabetic: No -: CKD [address] Mcdowell -: Hypertension -: GERD -: Stomach surgery Psychosocial/ Personal History: Lives at home with family - Family History Father Medical History: Heart disease, Diabetes Mother Medical History: Heart disease - Social History Smoking Status: Unknown if ever smoked Alcohol use: No CD- Drugs: No Caffeine use: Yes Place of Residence: Home Review of Systems General: Unremarkable Eyes: Vision Change, As per HPI ENT: Unremarkable Respiratory: Unremarkable Cardiovascular: As per HPI, Unremarkable Gastrointestinal: Unremarkable Genitourinary: Unremarkable Musculoskeletal: Unremarkable Integumentary: Unremarkable Neurological: Other (No reports of weakness, numbness, dizziness, gait imbalance), As per HPI Physical Examination Temp Pulse Resp BP Pulse Ox 96.9 F 63 63 H 147/67 H 96 01/01/22 08:00 01/01/22 08:00 01/01/22 08:00 01/01/22 08:00 01/01/22 08:00 General: Alert, In no apparent distress, Oriented x3 HEENT: Atraumatic, Normocephalic, PERRLA, EOMI Neck: Supple Respiratory: Clear to auscultation bilaterally, Normal air movement Cardiovascular: Normal pulses, Regular rate/rhythm, Normal S1 S2 Gastrointestinal: Soft and benign, Non-distended Musculoskeletal: No clubbing, No swelling, No contractures, No erythema Integumentary: No rashes, No breakdown Neurological: Normal speech, Normal strength at 5/5 x4 extr, Normal tone, Normal affect Laboratory Data (last 24 hrs) 12/31/21 20:00: PT 9.9, INR 0.90, APTT 21.0 L 12/31/21 20:00: WBC 8.10, Hgb 10.6 L, Hct 32.5 L, Plt Count 375 12/31/21 20:00: Sodium 139, Potassium 4.1, BUN 41 H, Creatinine 3.24 H, Glucose 166 H Conclusions/Impression: 1. Abnormal results of kidney function studies 2. Stage I SOLOMON possibly 3. Late CKD IV underlying 4. Acute ischemic CVA 5. Hypertensive CKD I-IV 6. Metab acidosis 7. Anemia 2nd to CKD, other -Pt's Cr level on admission was a bit higher than baseline but post hydration level lower this AM despite contrast exposure so no signs of JOSE, but there can be delayed effects so would cont IVF hydration and monitor UOP closely. -Pt does have advanced underlying CKD, remote imaging in the past showed relatively normal kidneys then -Pt does have a bicarb deficit, will change NS IVF to one added with bicarb to prevent worsening hyperchloremic metab acidosis. -Acute ischemic CVA w/u per Neurology and primary team, pt has been put on DAPT, permissive HTN currently -Can eval for tolerance of a low dose ACEi as an OP post discharge given potential benefits given CVA and even in advanced CKD , -Check urine studies including spot urine -Recommend holding OMID therapy currently and re-assessing as an OP as these medications can increase risk for vascular events -Gleevec on hold here, unclear exact indication for medication. -Check uric acid level. Thank you for this referral, Justin Parker MD, EMMANUEL
[2022-01-01] MEDS: NACHLORIDE 0.45% 1,000 ML with NA BICARB 8.4% 75 MEQ IV SCH ×2 (12:23)
[2022-01-01] MEDS: HYDROCODONE/APAP 5/325 MG TAB PO PRN ×2 (12:23→20:29)
--- NOTE | 2022-01-01 19:22 | P.PN ---
Subjective Date of Service: 01/01/22 Chief Complaint: Acute vision changes, MARES No acute events since admission. She reports that she continues to have blurry vision in her left upper visual quadrants. Otherwise, she reports no additional symptoms. She is eager to go home, but we have advised she stay in the hospital for an additional day to monitor her renal function in the setting of a recent contrast load. Review of Systems 10-point ROS is otherwise unremarkable Eyes: Vision Change Physical Examination - Vital Signs Temperature: 97.4 F Blood Pressure: 144/65 Pulse: 64 Respirations: 16 Pulse Ox (%): 94 - Physical Exam General: Alert, In no apparent distress, Oriented x3 HEENT: Atraumatic, PERRLA, Mucous membr. moist/pink, Other (visual deficit noted in bilateral left upper quadrant visual dalal), EOMI, Sclerae nonicteric Neck: Supple, JVD not distended Respiratory: Clear to auscultation bilaterally, Normal air movement Cardiovascular: No edema, Regular rate/rhythm, Normal S1 S2, No gallops, No rubs, No murmurs Gastrointestinal: Normal bowel sounds, Soft and benign, Non-distended, No tenderness, No rebound, No guarding Musculoskeletal: No clubbing Integumentary: No rashes Neurological: Normal speech, Normal strength at 5/5 x4 extr, Normal tone, Sensation intact, Cranial nerves 3-12 intact, Normal reflexes 2+, Normal affect - Studies Laboratory Data (last 24 hrs) 12/31/21 20:00: PT 9.9, INR 0.90, APTT 21.0 L 12/31/21 20:00: WBC 8.10, Hgb 10.6 L, Hct 32.5 L, Plt Count 375 12/31/21 20:00: Sodium 139, Potassium 4.1, BUN 41 H, Creatinine 3.24 H, Glucose 166 H Assessment And Plan - Plan NIH Stroke Scale 1a. Level of consciousness: 0 - Alert; keenly responsive 1b. LOC questions: 0 - Both questions right 1c. LOC commands: 0 - Performs both tasks 2. Best Gaze: 0 - Normal 3. Visual: 1 - partial hemianopia 4. Facial Palsy: 0 - Normal symmetry 5a. Motor left arm: 0 - No drift for 10 seconds 5b. Motor right arm: 0 - No drift for 10 seconds 6a. Motor left le - No drift for 5 seconds 6b. Motor right le - No drift for 5 seconds 7. Limb ataxia: 0 - No ataxia 8. Sensory: 0 - Normal; no sensory loss 9. Best Language: 0 - Normal; no aphasia 10. Dysarthria: 0 - Normal 11. Extinction and Inattention: 0 - No abnormality 12. Distal motor function: 0 - No abnormality Total Score: 1 # Acute Right Medial Occipital Lobe Cerebrovascular Accident with Superior Left Quadrantopia # Hypertension - Consulted Neurology and spoke with Dr. Ellis - recommendations appreciated - NIHSS = 1 - Allow permissive hypertension for tonight - q4hr neurochecks - CT head = "3.5 cm right posterior cerebral artery territory nonhemorrhagic infarct." - CT head angiogram = "no significant flow abnormality is detected." - CT neck angiogram = "no significant carotid stenosis is identified." - MRI brain = "acute infarct in the medial right occipital lobe. No other infarcts identified." - Carotid ultrasound = "mild soft plaque noted. No evidence of a hemodynamically significant stenosis." - PT evaluation requested - Ordered risk profile: - Hgb A1c = 6.1 % - Lipid panel = TC 151, TG 116, LDL 91, HDL 37 - TSH = 0.291 - Started aspirin, atorvastatin, folic acid, clopidogrel # Acute Kidney Injury on Chronic Kidney Disease Stage IV - Nephrology consulted and spoke with Dr. Parker - recommendations appreciated -He recommended observing an additional day due to the recent contrast load she received yesterday - Creatinine = 3.24 -> 2.71 - Urinalysis = pending - Monitor creatinine and urine output - If worsening, obtain renal ultrasound - Renally dose medications Rome Doyle M.D.
[2022-01-01] MEDS ORDERED: ATORVASTATIN 40 MG TAB PO SCH ×2 (21:00)
--- NOTE | 2022-01-02 00:30 | CON ---
Reason For Consultation: Consultation called because of stroke. History Of Present Illness: Ms. 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 T he patient apparently went to bed okay. She was seen by a local primer powder blender wet who detected the lef t visual field deficit and send the patient to [facility]. At the time of our arrival, she was well beyond the 4.5 hour window to receive TNKs. Her head CT scan showed a 3.5 cm right posterio r cerebral artery territory nonhemorrhagic ischemic stroke. CT angiogram of her neck showed no large vessel occlusion. As a result, the patient was deemed appropriate to stay at [facility]. She said she had been out of aspirin and actually had not been taking it. Since hospitalization, her left visual field deficit has not changed. Past Medical History: As noted above. Past Surgical History: Stomach surgery. Family History: Heart disease and diabetes in father. Heart disease in mother. Social History: No alcohol, tobacco, or drug use. Lives with family at home. Medications: Aspirin 81 mg daily, Lipitor 40 mg at bedtime, Plavix 75 mg daily, folic acid 1 mg ale y, heparin 5000 subcutaneously every 12 hours, melatonin 5 mg at bedtime, Zofran as needed for nausea . Allergies: MORPHINE AND SUMATRIPTAN. Review of Systems: Aside from mentioned above, no fevers, chills, nausea, vomiting, myalgias, arthralgias, headache, camron ght change, rash, psychiatric complaints, gastrointestinal, or genitourinary issues. Physical Examination: Vital Signs: Blood pressure 144/65, pulse 64, respiratory rate 16, temperature 97.4, oxygen saturati on 97% on room air. General: Ms. Blas is resting comfortably in bed. She is in no acute distress. HEENT: She is normocephalic, atraumatic. Sclerae anicteric. Oropharynx is pink and moist. Neck: Supple. Chest: Clear. Heart: Regular. Extremities: No clubbing, cyanosis, or edema. Neurologic: She has a left homonymous hemianopsia. Otherwise, no focal cranial nerve deficits. Her motor examination shows no weakness in upper and lower extremities, 5/5 throughout. She has a mild stocking-glove loss to light touch and temperature. Reflexes are 1-2 in the upper and lower extremit ies with no asymmetries. Coordination is intact in the upper and lower extremities. She was able to ambulate 270 feet without an assistive device. She did require some assistance due to visual defici ts with cuing. Laboratory Studies: Complete blood count with differential shows anemia with hemoglobin 9.5, otherwi se essentially unremarkable. INR 0.9. Creatinine initially 3.24 on admission and with hydration 2.7 1. TSH 0.291. Liver function studies unremarkable. Blood sugars range from 106-166. Hemoglobin A1 c 6.1. Calcium 8.8. COVID testing is negative. Assessment: Ms. Blas is a 71-year-old patient with stage 4 kidney disease and hypertension. H er LDL is slightly elevated to 91, total cholesterol 151. Her thyroid-stimulating hormone level is s ignificantly decreased to 0.291 without a reported history of hypothyroidism. She has a left visual field deficit from the right posterior cerebral artery ischemic stroke. She was off aspirin at the t parker of her stroke. Plan: 1.Aspirin, Plavix, folic acid as noted. 2.Her thyroid function should be addressed with full evaluation. 3.Kidney failure addressed by Renal Service. 4.She may likely require prism lenses on the left side to help bring the loss of visual field into view. 5.Discharge home and follow up with Dr. Ellis within a month. GISSEL/VAL Voice ID: [id number] Report ID: [id number]
[2022-01-02] MEDS: NACHLORIDE 0.45% 1,000 ML with NA BICARB 8.4% 75 MEQ IV SCH ×2 (04:16)
[2022-01-02 06:15] LABS: Absolute Lymphocytes (CBC) 1.7 K/uL (0.7-4.9); Hematocrit 27.9 % (36.0-45.0); Lymphocytes % 28.5 % (15.3-44.8); MCV 101.7 fL (80-100); RBC Red Blood Cell Count 2.74 M/uL (3.86-4.86)
[2022-01-02 06:19] VITALS: BP 151/65; TEMP 98
--- NOTE | 2022-01-02 06:32 | EKG ---
Test Date: 2021-12-31 Test Time: 20:23:49 Fun House Operator: PHILLIP MEASUREMENT RESULTS: Intervals: Rate: 62 ND: 164 QRSD: 92 QT: 424 QTc: 430 [place]: P: 29 ND: 164 QRS: -36 T: 24 INTERPRETIVE STATEMENTS: Normal sinus rhythm Left axis deviation Nonspecific ST and T wave abnormality Abnormal ECG Compared to ECG 06/01/2012 10:01:16 Left-axis deviation now present ST (T wave) deviation now present Atrial premature complex(es) no longer present Electronically Signed On 01-02-22 06:30:35 OIL HOUSE ATTENDANT by Polo Robles
[2022-01-02 06:33] LABS: Albumin 3.1 g/dL (3.4-5.0); Bilirubin Total 0.4 mg/dL (0.2-1.0); Phosphorus 3.1 mg/dL (2.5-4.9); Potassium 3.8 mmol/L (3.5-5.1); Protein, Total 6.2 g/dL (6.4-8.2); Uric Acid 6.5 mg/dL (2.6-6.0)
--- NOTE | 2022-01-02 06:55 | ECHO ---
HEIGHT: 5 ft 6 in WEIGHT: 174 lb 0 oz DATE OF STUDY: 01/01/[address]: Aurelio Stinson NP 2-DIMENSIONAL: YES M.MODE: YES DOPPLER: YES COLOR FLOW: YES TDS: NO PORTABLE: YES DEFINITY: NO BUBBLE STUDY: NO DIAGNOSIS: STROKE CARDIAC HISTORY: CATHERIZATION: NO SURGERY: NO PROSTHETIC VALVE: NO PACEMAKER: NO MEASUREMENTS (cm) DIASTOLIC (NORMALS) SYSTOLIC (NORMALS) IVSd 1.1 (0.6-1.2) LA Diam 2.5 (1.9-4.0) LVEF 54% LVIDd 4.4 (3.5-5.7) LVIDs 3.2 (2.0-3.5) %FS 28% LVPWd 1.2 (0.6-1.2) Ao Diam 2.9 (2.0-3.7) 2 DIMENSIONAL ASSESSMENT: RIGHT ATRIUM: NORMAL LEFT ATRIUM: NORMAL RIGHT VENTRICLE: NORMAL LEFT VENTRICLE: NORMAL TRICUSPID VALVE: NORMAL MITRAL VALVE: MITRAL ANNULAR CALCIFICATION PULMONIC VALVE: NORMAL AORTIC VALVE: SCLEROSIS PERICARDIAL EFFUSION: NONE AORTIC ROOT: NORMAL LEFT VENTRICULAR WALL MOTION: NORMAL. DOPPLER/COLOR FLOW: NORMAL. COMMENTS: AORTIC SCLEROSIS - NO STENOIS. MITRAL ANNULAR CALCIFICATION. NO VEGETATION OR CLOT. NORMAL LEFT VENTRICULAR SIZE AND FUNCTION. TECHNOLOGIST: ROLO ALICEA.
--- NOTE | 2022-01-02 08:02 | P.DS ---
Admission Date: 12/31/21 Discharge Date: 01/02/22 Disposition: ROUTINE DISCHARGE Discharge Condition: GOOD Reason for Admission: Acute vision changes, MARES Consultations: 1. Neurology 2. Nephrology Hospital Course: DIAGNOSES: # Acute Right Medial Occipital Lobe Cerebrovascular Accident with Superior Left Quadrantopia # Acute Kidney Injury on Chronic Kidney Disease Stage IV # Hypertension # Prediabetes HOSPITAL COURSE: Ms. Stephenie Blas is a pleasant 71-year-old female with a past medical history significant for chronic kidney disease stage IV and hypertension who was admitted to the [facility] on 12/31/2021 for acute visual disturbance. Upon presentation to the emergency department, a stroke alert was activated; however, she was outside of the window for tenecteplase, so this was not given. She was admitted to the Medicine service. Her evaluation revealed an NIHSS score of 1. Her CT head revealed, a "3.5 cm right posterior cerebral artery territory nonhemorrhagic infarct." Her CT head angiogram revealed "no significant flow abnormality is detected." Her CT neck angiogram revealed "no significant carotid stenosis is identified." Her MRI brain revealed an "acute infarct in the medial right occipital lobe. No other infarcts identified." Her carotid ultrasound revealed "mild soft plaque noted. No evidence of a hemodynamically significant stenosis." A transthoracic echocardiogram revealed, "aortic sclerosis no stenois. mitral annular calcification. no vegetation or clot. normal left ventricular size and function." Physical therapy was consulted and stated that she was safe to be discharged home. Neurology was consulted and she was evaluated by Dr. Ellis. He has cleared her discharge with aspirin, atorv astatin, folic acid, and clopidogrel. Given that she received a contrast load in the setting of chronic kidney disease stage IV, Nephrology was consulted. She was monitored in the hospital with impro vement in her creatinine level. She was seen by Dr. Parker and cleared for discharge from a Nephrology standpoint. On 01/02/2022, she was seen on morning rounds and deemed medically stable for discharge. She was discharged with instructions to schedule follow-up appointments with her PCP (Dr. Araujo), with Neurology (Dr. Ellis), and with Nephrology (Dr. Mcdowell). She was provided prescriptions for atorvastatin and clopidrel. She was advised not to drive until she follows up with Dr. Ellis, and she agreed to make this appointment. She was given the opportunity to ask questions and reported no further questions. Furthermore, all questions were answered to the best of my ability. A copy of this discharge summary will be sent to the above providers to facilitate continuity of care. Today, I personally spent 25 minutes on her case, of which greater than 50% of the time was spent in patient education, counseling, and coordination of care as described above. - Physical Exam General: Alert, In no apparent distress, Oriented x3 HEENT: Atraumatic, PERRLA, Mucous membr. moist/pink, Other (visual deficit noted in bilateral left upper quadrant visual dalal), EOMI, Sclerae nonicteric Neck: Supple, JVD not distended Respiratory: Clear to auscultation bilaterally, Normal air movement Cardiovascular: No edema, Regular rate/rhythm, Normal S1 S2, No gallops, No rubs, No murmurs Gastrointestinal: Normal bowel sounds, Soft and benign, Non-distended, No tenderness, No rebound, No guarding Musculoskeletal: No clubbing Integumentary: No rashes Neurological: Normal speech, Normal strength at 5/5 x4 extr, Normal tone, Sensation intact, Cranial nerves 3-12 intact, Normal reflexes 2+, Normal affect NIH Stroke Scale 1a. Level of consciousness: 0 - Alert; keenly responsive 1b. LOC questions: 0 - Both questions right 1c. LOC commands: 0 - Performs both tasks 2. Best Gaze: 0 - Normal 3. Visual: 1 - partial hemianopia 4. Facial Palsy: 0 - Normal symmetry 5a. Motor left arm: 0 - No drift for 10 seconds 5b. Motor right arm: 0 - No drift for 10 seconds 6a. Motor left le - No drift for 5 seconds 6b. Motor right le - No drift for 5 seconds 7. Limb ataxia: 0 - No ataxia 8. Sensory: 0 - Normal; no sensory loss 9. Best Language: 0 - Normal; no aphasia 10. Dysarthria: 0 - Normal 11. Extinction and Inattention: 0 - No abnormality 12. Distal motor function: 0 - No abnormality Total Score: 1 Vital Signs/Physical Exam: Temp Pulse Resp BP Pulse Ox 98 F 62 18 151/65 H 95 01/02/22 04:00 01/02/22 04:00 01/02/22 04:00 01/02/22 04:00 01/02/22 04:00 Laboratory Data at Discharge: WBC 6.10 K/uL (4.3-10.9) 01/02/22 05:52 Hgb 9.3 g/dL (12.0-15.0) L 01/02/22 05:52 Hct 27.9 % (36.0-45.0) L 01/02/22 05:52 Plt Count 313 K/uL (152-406) 01/02/22 05:52 PT 9.9 SECONDS (9.5-12.5) 12/31/21 20:00 INR 0.90 12/31/21 20:00 APTT 21.0 SECONDS (24.3-36.9) L 12/31/21 20:00 Sodium 140 mmol/L (136-145) 01/02/22 05:52 Potassium 3.8 mmol/L (3.5-5.1) 01/02/22 05:52 BUN 32 mg/dL (7-18) H 01/02/22 05:52 Creatinine 2.17 mg/dL (0.55-1.3) H 01/02/22 05:52 Glucose 100 mg/dL (74-106) 01/02/22 05:52 Uric Acid 6.5 mg/dL (2.6-6.0) H 01/02/22 05:52 Phosphorus 3.1 mg/dL (2.5-4.9) 01/02/22 05:52 Total Bilirubin 0.4 mg/dL (0.2-1.0) 01/02/22 05:52 AST 12 U/L (15-37) L 01/02/22 05:52 ALT 12 U/L (12-78) 01/02/22 05:52 Alkaline Phosphatase 95 U/L (45-117) 01/02/22 05:52 Triglycerides 116 mg/dL (<150) 01/01/22 05:22 Cholesterol 151 mg/dL (<200) 01/01/22 05:22 HDL Cholesterol 37 mg/dL (40-60) L 01/01/22 05:22 Cholesterol/HDL Ratio 4.08 01/01/22 05:22 Home Medications: Amlodipine Besylate 5 mg PO DAILY 08/01/16 allopurinoL [Zyloprim*] 100 mg PO DAILY 08/01/16 Aspirin 81 mg PO DAILY 01/01/22 Cholecalciferol (Vitamin D3) [Vitamin D 5,000 IU Cap*] 5,000 iu PO DAILY 01/01/22 Imatinib Mesylate [Gleevec] 200 mg PO BEDTIME 01/01/22 Levothyroxine [Synthroid*] 0.125 mg PO DAILY 01/01/22 Omeprazole 40 mg PO DAILY 01/01/22 Sodium Bicarbonate 650 mg PO BID 01/01/22 Atorvastatin Calcium [Lipitor] 40 mg PO BEDTIME #30 tab 01/02/22 Clopidogrel Bisulfate [Plavix*] 75 mg PO DAILY #30 tab 01/02/22 Folic Acid 1 mg PO DAILY #30 01/02/22 New Medications: Folic Acid 1 mg PO DAILY #30 Atorvastatin Calcium [Lipitor] 40 mg PO BEDTIME #30 tab Clopidogrel Bisulfate [Plavix*] 75 mg PO DAILY #30 tab Physician Discharge Instructions: 1. Please schedule a follow-up appointment with your PCP (Dr. Araujo) in 3-5 days 2. Please schedule a follow-up appointment with Neurology (Dr. Ellis) in 3-5 days - Please do not drive until you see Dr. Ellis 3. Please schedule a follow-up appointment with your Professor Of Biology (Dr. Mcdowell) in 5-7 days Followup: Andrea Ellis MD [ASSOCIATE-ACTIVE - CAN ADMIT] - 2-3 Days (Call to make appointment in 3-5 days) Sajan Araujo, [Primary Care Provider] - 2-3 Days (Call to make appointment in 3-5 days) Ely Mcdowell MD [ACTIVE - CAN ADMIT] - 1-2 Weeks (Call to make appointment) Time spent managing pt's care (in minutes): 25
[2022-01-02] MEDS: FOLIC ACID 1 MG TABLET PO SCH (08:40)
[2022-01-02] MEDS: HEPARIN 5000 UNIT/ML 1 ML VIAL SQ SCH (08:41)
[2022-01-02] MEDS: CLOPIDOGREL 75 MG TABLET PO SCH (08:41)
[2022-01-02] MEDS: ASPIRIN EC 81 MG TAB PO SCH (08:41)
[2022-01-02] MEDS: HYDROCODONE/APAP 5/325 MG TAB PO PRN (08:41)
== END 2022-01-02 09:26 | disposition home or self-care (01) | DRG 65 ==
LOC: ER 19:18 → ERHOLD 22:10 → 2ND 23:31
PROVIDERS: ADMIT Internal Medicine; ATTEND Internal Medicine
DX: I63.89 Other cerebral infarction (principal); E87.20 Acidosis, unspecified; N17.9 Acute kidney failure, unspecified; N18.4 Chronic kidney disease, stage 4 (severe); H53.462 Homonymous bilateral field defects, left side; R29.701 NIHSS score 1; I12.9 Hypertensive chronic kidney disease with stage 1 through stage 4 chronic kidney disease, or unspecified chronic kidney disease; D63.1 Anemia in chronic kidney disease; R73.03 Prediabetes; I65.29 Occlusion and stenosis of unspecified carotid artery; I70.0 Atherosclerosis of aorta; K21.9 Gastro-esophageal reflux disease without esophagitis; Z20.822 Contact with and (suspected) exposure to COVID-19; Z79.82 Long term (current) use of aspirin; Z79.02 Long term (current) use of antithrombotics/antiplatelets; Z79.899 Other long term (current) drug therapy; Z88.5 Allergy status to narcotic agent; Z88.6 Allergy status to analgesic agent; Z82.49 Family history of ischemic heart disease and other diseases of the circulatory system; Z83.3 Family history of diabetes mellitus
CPT/HCPCS: 36415; 70450; 70496; 70498; 70551; 80048; 80053; 80061; 82565; 83036; 84100; 84443; 84484; 84550; 85025; 85610; 85652; 85730; 87811; 93005; 93306; 93880; 97112; 97161; 99285; J1644; J7030; Q9967

== ENCOUNTER 2023-08-03 11:36 | Emergency (ER) | payer OTHER ==
[2023-08-03] MEDS ORDERED: FENTANYL CITR 100 MCG/2 ML ONE (13:15)
--- NOTE | 2023-08-03 13:35 | RAD REPORT ---
EXAM DESCRIPTION: Melissa Single View08/03/2023 1:17 pm CLINICAL HISTORY: Leg swelling COMPARISON: 2012 FINDINGS: The lungs appear clear of acute infiltrate. The heart is normal size IMPRESSION: No acute abnormalities displayed
[2023-08-03 13:36] LABS: Absolute Basophils 0.1 K/uL (0-0.5); Absolute Eosinophils 0.7 K/uL (0-0.5); Absolute Lymphocytes (CBC) 1.6 K/uL (0.7-4.9); Absolute Monocytes 0.8 K/uL (0.1-1.3); Basophils % 0.9 % (0-1.3); Eosinophils % 7.2 % (0-4.4); Hematocrit 32.4 % (36.0-45.0); Hemoglobin 10.5 g/dL (12.0-15.0); Lymphocytes % 17.6 % (15.3-44.8); MCH 33.7 pg (27.0-35.0); MCHC 32.3 g/dL (32.0-36.0); MCV 104.3 fL (80-100); MPV 9.4 fL (7.6-11.3); Monocytes % 8.8 % (3.3-12.3); Neutrophils % 65.5 % (41.7-73.7); Platelets 222 thou/uL (152-406); RBC Red Blood Cell Count 3.11 M/uL (3.86-4.86); Red Cell Distribution Width 16.4 % (12.1-15.2)
[2023-08-03 13:37] LABS: PT Prothrombin Time 10.1 SECONDS (9.5-12.5); Protime INR 0.92
[2023-08-03 13:52] LABS: Albumin 3.2 g/dL (3.4-5.0); Albumin/Globulin Ratio 0.9 (1.1-1.8); Alkaline Phosphatase 99 U/L (45-117); Anion Gap 8.1 mEq/L (5.0-15.0); BUN Blood Urea Nitrogen 31 mg/dL (7-18); Bicarbonate 22 mEq/L (21-32); Bilirubin Total 0.3 mg/dL (0.2-1.0); Globulin 3.4 g/dL (2.3-3.5); Glomerular Filtration Rate 15 ml/min (=/>90); Glucose Level 114 mg/dL (74-106); Magnesium 1.7 mg/dL (1.6-2.4); Potassium 4.1 mEq/L (3.5-5.1); Protein, Total 6.6 g/dL (6.4-8.2); Sodium Level 136 mEq/L (136-145); Troponin High Sensitivity 25.8 pg/mL (<58.9)
[2023-08-03 13:53] LABS: ALT/SGPT < 14 U/L (13-56); AST/SGOT < 10 U/L (15-37); Bilirubin Direct < 0.2 mg/dL (0-0.2); Bilirubin Indirect, Calculated 0.1 mg/dL (0.2-0.8)
[2023-08-03] MEDS ORDERED: APIXABAN 5 MG TABLET ONE (14:16)
--- NOTE | 2023-08-03 14:22 | EDPHYS ---
Physician Documentation [facility] Name: Stephenie Blas Age: 72 yrs Sex: Female : 1950 Arrival Date: 08/03/2023 Time: 11:36 Bed 20 Private MD: Van [facility] ED Physician Pramod Perdomo HPI: 08/02 13:05 This 72 yrs old Female presents to ER via Ambulatory with complaints of Leg Swelling. cp 13:05 The patient presents with pain, that is acute, swelling, tenderness, redness. cp 13:05 The complaints affect the left lower leg and right lower leg. cp 13:05 Context: resulted from an unknown cause, the patient can fully bear weight, the patient cp is able to ambulate, with mild difficulty. Onset: The symptoms/episode began/occurred gradually. Associated signs and symptoms: Pertinent positives: calf tenderness, swelling, warmth, Pertinent negatives numbness, chest pain, shortness of breath. Patient reports having US of lower extremities performed this past but has not been notified of results. Historical: - Allergies: 11:43 Morphine; bp 11:43 sumatriptan; bp - PMHx: 11:43 Hypertensive disorder; bp - Immunization history:: Adult Immunizations up to date. - Infectious Disease History:: Denies. - Social history:: Smoking status: Patient denies any tobacco usage or history of. ROS: 13:10 Constitutional: Negative for body aches, chills, fever, poor PO intake, cp 13:10 Cardiovascular: Negative for chest pain, palpitations, cp 13:10 Respiratory: Negative for cough, shortness of breath, wheezing, 13:10 MS/extremity: Positive for erythema, pain, swelling, tenderness, of the left lower leg and right lower leg, Negative for injury or acute deformity, decreased range of motion, 13:10 Eyes: Negative for injury, pain, redness, and discharge, cp 13:10 ENT: Negative for drainage from ear(s), ear pain, sore throat, difficulty swallowing, cp difficulty handling secretions, 13:10 Abdomen/GI: Negative for abdominal pain, vomiting, diarrhea, constipation, 13:10 Back: Negative for pain at rest, pain with movement, 13:10 Neuro: Negative for numbness, tingling, weakness, 13:10 All other systems are negative, Exam: 13:15 Constitutional: The patient appears in no acute distress, alert, awake, cp non-diaphoretic, non-toxic, well developed, well nourished, 13:15 Head/Face: Normocephalic, atraumatic. cp 13:15 Eyes: Periorbital structures: appear normal, Conjunctiva: normal, no exudate, no injection, Sclera: no appreciated abnormality, Lids and lashes: appear normal, bilaterally, 13:15 ENT: External ear(s): are unremarkable, Nose: is normal, Mouth: Lips: moist, Oral mucosa: moist, Posterior pharynx: Airway: no evidence of obstruction, patent, 13:15 Chest/axilla: Inspection: normal, 13:15 Cardiovascular: Rate: normal, Rhythm: regular, Edema: ankle edema, that is mild, JVD: is not appreciated, 13:15 Respiratory: the patient does not display signs of respiratory distress, Respirations: normal, no use of accessory muscles, no retractions, labored breathing, is not present, Breath sounds: are clear throughout, no decreased breath sounds, no stridor, no wheezing, 13:15 Abdomen/GI: Inspection: abdomen appears normal, Palpation: abdomen is soft and non-tender, in all quadrants, 13:15 Back: pain, is absent, ROM is normal, 13:15 Musculoskeletal/extremity: DVT Exam: pain, that is moderate, of the right leg, of the left leg, swelling, that is mild, of the right leg, of the left leg, erythema, that is mild, of the right leg, of the left leg, 13:33 ECG was reviewed by the Attending Physician. cp Vital Signs: 11:42 BP 145 / 74; Pulse 77; Resp 16; Temp 97.1; Pulse Ox 100% ; bp 13:45 BP 140 / 76; Pulse 71; Resp 17; Pulse Ox 99% on R/A; rs5 14:30 BP 135 / 78; Pulse 74; Resp 18; Pulse Ox 99% on R/A; rs5 14:49 BP 160 / 70; Pulse 57; Resp 17; Pulse Ox 99% ; Pain 8/10; ll1 14:49 Pain Scale: Adult ll1 MDM: 11:51 Patient medically screened. cp 14:20 Data reviewed: vital signs, nurses notes, diagnostic data from outside facility, US cp lower extremities, lab test result(s), EKG, radiologic studies, plain films, and as a result, I will discharge patient. 14:20 Differential diagnosis: DVT, cellulitis, abscess. Consideration of cp Admission/Observation Escalation of care including admission/observation considered. I considered the following discharge prescriptions or medication management in the emergency department Medications were administered in the Emergency Department. See MAR. Independent interpretation of the following test(s) in the Emergency Department EKG: See my EKG interpretation above. Care significantly affected by the following chronic conditions: Hypertension, Chronic Kidney Disease. Counseling: I had a detailed discussion with the patient and/or guardian regarding the historical points, exam findings, and any diagnostic results supporting the discharge/admit diagnosis, lab results, radiology results, the need for outpatient follow up, an academic support coordinator, to return to the emergency department if symptoms worsen or persist or if there are any questions or concerns that arise at home. 08/02 13:03 Order name: Basic Metabolic Panel; Complete Time: 14: cp 08/02 14:07 Interpretation: Normal except: CL 110; GLUC 114; BUN 31; CRE 3.21; GFR 15. cp 08/02 13:03 Order name: CBC with Diff; Complete Time: 14: cp 08/02 14:08 Interpretation: Normal except: RBC 3.11; HGB 10.5; HCT 32.4; MCV 104.3; RDW 16.4; cp EOSINOPHIL % 7.2; EOSA 0.7. 08/02 13:03 Order name: LFT's; Complete Time: 14: cp 08/02 14:08 Interpretation: Normal except: AST < 10; IBILI, CALC 0.1; ALB 3.2; A/G 0.9. cp 08/02 13:03 Order name: Magnesium; Complete Time: 14:07 cp 08/02 13:03 Order name: PT-INR; Complete Time: 14:07 cp 08/02 13:03 Order name: Troponin HS; Complete Time: 14: cp 08/02 13:03 Order name: XRAY Chest (1 view); Complete Time: 14:07 cp 08/02 13:03 Order name: EKG; Complete Time: 13:04 cp 08/02 13:03 Order name: Cardiac monitoring; Complete Time: 13:35 cp 08/02 13:03 Order name: EKG - Nurse/Tech; Complete Time: 13:35 cp 08/02 13:03 Order name: IV Saline Lock; Complete Time: 13:35 cp 08/02 13:03 Order name: Labs collected and sent; Complete Time: 13:35 cp 08/02 13:03 Order name: O2 Per Protocol; Complete Time: 13:35 cp 08/02 13:03 Order name: O2 Sat Monitoring; Complete Time: 13:35 cp EC:33 Rate is 69 beats/min. Rhythm is regular. VA interval is normal. QRS interval is normal. cp QT interval is normal. Interpreted by me. Reviewed by me. Administered Medications: 13:13 Drug: fentaNYL (PF) IVP 25 mcg IVP once Route: IVP; Site: right antecubital; rs5 13:33 Follow up: Response: No adverse reaction; Pain is decreased rs5 14:29 Drug: Eliquis PO 5 mg PO once Route: PO; rs5 14:30 Follow up: Response: No adverse reaction rs5 Disposition: 20:00 Co-signature as Attending Physician, Pramod Perdomo MD I reviewed the patient's care rt provided by the Advanced Practice Provider and agree with the diagnosis and treatment plan. Disposition Summary: 08/03/23 14:21 Discharge Ordered Notes: Location: Home cp Problem: new cp Symptoms: have improved cp Condition: Stable cp Diagnosis - Acute embolism and thrombosis of other specified deep vein of left lower extremity cp - Chronic kidney disease, unspecified cp Followup: cp - With: Private Physician - When: 1 week - Reason: Recheck today's complaints Discharge Instructions: - Discharge Summary Sheet cp - Deep Vein Thrombosis cp - Chronic Kidney Disease, Adult cp Forms: - Medication Reconciliation Form cp - Antibiotic Education cp - Prescription Opioid Use cp - Patient Portal Instructions cp - Leadership Thank You Letter cp Prescriptions: - Eliquis DVT-PE Treat 30D Start 5 mg (74 tabs) Oral Tablet, Dose Pack - take 1 tablet ORAL route every 12 hours; 60 tablet; Refills: 0, Product cp Selection Permitted - mupirocin 2 % Topical ointment - apply 1 application TOPICAL route 3 times per day; 45 gram tube; Refills: 0, cp Product Selection Permitted - Cephalexin 500 mg Oral Capsule - take 1 capsule ORAL route every 8 hours for 10 days; 30 capsule; Refills: 0, cp Product Selection Permitted - Tramadol 50 mg Oral Tablet - take 1 tablet ORAL route every 8 hours as needed; 12 tablet; Refills: 0, cp Product Selection Permitted Signatures: Dispatcher [employer] EDMS Rajeev Wu PA PA cp Peltier, Brian, DANTE RN bp Pramod Perdomo MD MD rt Onesimo Agee RN RN rs5 Corrections: (The following items were deleted from the chart) 13:04 13:04 BASIC METABOLIC PANEL+C.LAB.BRZ ordered. EDMS EDMS 13:04 13:04 CBC+H.LAB.BRZ ordered. EDMS EDMS 13:04 13:04 HEPATIC FUNCTION+C.LAB.BRZ ordered. EDMS EDMS 13:04 13:04 MAGNESIUM+C.LAB.BRZ ordered. EDMS EDMS 13:04 13:04 PROTIME (+INR)+COAG.LAB.BRZ ordered. EDMS EDMS 13:04 13:04 Troponin High Sensitivity+C.LAB.BRZ ordered. EDMS EDMS
--- NOTE | 2023-08-03 14:22 | ER ---
Nurse's Notes [facility] Name: Stephenie Blas Age: 72 yrs Sex: Female : 1950 Arrival Date: 08/03/2023 Time: 11:36 Bed 20 Private MD: Sajan Araujo Diagnosis: Acute embolism and thrombosis of other specified deep vein of left lower extremity;Chronic kidney disease, unspecified Presentation: 08/02 11:42 Chief complaint: Patient states: BLE PAIN AND EDEMA, RECENT BLE VENOUS U/S THURSDAY. bp Coronavirus screen: At this time, the client does not indicate any symptoms associated with coronavirus-19. Ebola Screen: No symptoms or risks identified at this time. Initial Sepsis Screen: Does the patient meet any 2 criteria? No. Patient's initial sepsis screen is negative. Does the patient have a suspected source of infection? No. Patient's initial sepsis screen is negative. Risk Assessment: Do you want to hurt yourself or someone else? Patient reports no desire to harm self or others. Onset of symptoms is unknown. 11:42 Method Of Arrival: Ambulatory bp 11:42 Acuity: SHO 3 bp Triage Assessment: 11:43 General: Appears in no apparent distress. Behavior is cooperative, appropriate for age, bp anxious. Pain: Complains of pain in right leg and left leg. Musculoskeletal: Reports BLE EDEMA. Historical: - Allergies: 11:43 Morphine; bp 11:43 sumatriptan; bp - PMHx: 11:43 Hypertensive disorder; bp - Immunization history:: Adult Immunizations up to date. - Infectious Disease History:: Denies. - Social history:: Smoking status: Patient denies any tobacco usage or history of. Screenin:56 [facility] ED Fall Risk Assessment (Adult) History of falling in the last 3 months, rs5 including since admission No falls in past 3 months (0 pts) Confusion or Disorientation No (0 pts) Intoxicated or Sedated No (0 pts) Impaired Gait Yes (1 pt) Mobility Assist Device Used No (0 pt) Altered Elimination No (0 pt) Score/Fall Risk Level 0 - 2 = Low Risk Oriented to surroundings, Maintained a safe environment. Abuse screen: Denies threats or abuse. Nutritional screening: No deficits noted. Tuberculosis screening: No symptoms or risk factors identified. Assessment: 12:56 Reassessment: Pt arrived in room. rs5 12:56 General: Appears in no apparent distress. uncomfortable, Behavior is calm, cooperative. rs5 Pain: Complains of pain in left leg and right leg Pain currently is 9 out of 10 on a pain scale. Quality of pain is described as aching, Is continuous. Neuro: Level of Consciousness is awake, alert, obeys commands, Oriented to person, place, time, situation. Cardiovascular: Patient's skin is warm and dry. Rhythm is regular. Respiratory: Airway is patent Respiratory effort is even, unlabored, Respiratory pattern is regular, symmetrical. GI: Abdomen is round non-distended, Abd is soft and non tender X 4 quads. : No signs and/or symptoms were reported regarding the genitourinary system. EENT: No signs and/or symptoms were reported regarding the EENT system. Derm: Skin is intact, Skin is pink, warm \T\ dry. Musculoskeletal: Swelling present in left leg and right leg. 13:44 Reassessment: Patient and/or family updated on plan of care and expected duration. Pain rs5 level reassessed. Patient is alert, oriented x 3, equal unlabored respirations, skin warm/dry/pink. Patient states feeling better. Patient states symptoms have improved. 14:29 Reassessment: Patient and/or family updated on plan of care and expected duration. Pain rs5 level reassessed. Patient is alert, oriented x 3, equal unlabored respirations, skin warm/dry/pink. 14:48 Reassessment: No changes from previously documented assessment. Patient and/or family ll1 updated on plan of care and expected duration. Pain level reassessed. Patient is alert, oriented x 3, equal unlabored respirations, skin warm/dry/pink. Vital Signs: 11:42 BP 145 / 74; Pulse 77; Resp 16; Temp 97.1; Pulse Ox 100% ; bp 13:45 BP 140 / 76; Pulse 71; Resp 17; Pulse Ox 99% on R/A; rs5 14:30 BP 135 / 78; Pulse 74; Resp 18; Pulse Ox 99% on R/A; rs5 14:49 BP 160 / 70; Pulse 57; Resp 17; Pulse Ox 99% ; Pain 8/10; ll1 14:49 Pain Scale: Adult ll1 ED Course: 11:37 Patient arrived in ED. rg4 11:38 Sajan Araujo DO is Private Physician. rg4 11:39 Rajeev Wu PA is PHCP. cp 11:39 Pramod Perdomo MD is Attending Physician. cp 11:43 Triage completed. bp 11:43 Arm band placed on. bp 12:45 Patient placed in an exam room, on a stretcher. rs5 12:55 Inserted saline lock: 20 gauge in right antecubital area, using aseptic technique. rs5 12:56 Onesimo Agee RN is Primary Nurse. rs5 12:56 Patient has correct armband on for positive identification. Bed in low position. Call rs5 light in reach. Side rails up X2. 12:56 No provider procedures requiring assistance completed. rs5 13:19 XRAY Chest (1 view) In Process Unspecified. EDMS 14:49 Provided Education on: do not drink alcohol or drive on prescribed pain medication. ll1 14:49 IV discontinued, intact, bleeding controlled, No redness/swelling at site. Pressure ll1 dressing applied. Administered Medications: 13:13 Drug: fentaNYL (PF) IVP 25 mcg IVP once Route: IVP; Site: right antecubital; rs5 13:33 Follow up: Response: No adverse reaction; Pain is decreased rs5 14:29 Drug: Eliquis PO 5 mg PO once Route: PO; rs5 14:30 Follow up: Response: No adverse reaction rs5 Medication: 12:56 VIS not applicable for this client. rs5 Outcome: 14:21 Discharge ordered by MD. cp 14:49 Discharged to home ambulatory, ll1 14:49 Condition: stable 14:49 Discharge instructions given to patient, family, Instructed on discharge instructions, follow up and referral plans. no drinking with medication, no driving heavy equipment, medication usage, wound care, Demonstrated understanding of instructions, follow-up care, medications, wound care, Prescriptions given X 4, 14:51 Patient left the ED. ll1 Signatures: Dispatcher [employer] EDRI Rajeev Wu PA PA cp Garcia, Rubi rg4 Rasta Prieto RN RN bp Lewis, Lynsay, RN RN ll1 Onesimo Agee RN RN rs5
[2023-08-03 15:11] VITALS: TEMP 97.1
[2023-08-03 15:12] VITALS: O2SAT 99
[2023-08-03 15:36] VITALS: BP 160/70
--- NOTE | 2023-08-04 15:09 | EKG ---
Test Date: 2023-08-03 Test Time: 13:25:09 Correspondence Transcriber: MAY MEASUREMENT RESULTS: Intervals: Rate: 69 WV: 144 QRSD: 86 QT: 426 QTc: 456 Henderson: P: -8 WV: 144 QRS: -30 T: 56 INTERPRETIVE STATEMENTS: Sinus rhythm with occasional premature ventricular complexes and premature atrial complexes Left axis deviation Anterolateral infarct, age undetermined Abnormal ECG Compared to ECG 12/31/2021 20:23:49 Atrial premature complex(es) now present Ventricular premature complex(es) now present Myocardial infarct finding now present ST (T wave) deviation no longer present Electronically Signed On 08-04-23 15:06:11 CDT by Yves Dailey
== END 2023-08-03 14:51 | disposition home or self-care (01) ==
LOC: ER 11:36
DX: I82.492 Acute embolism and thrombosis of other specified deep vein of left lower extremity (principal); I12.9 Hypertensive chronic kidney disease with stage 1 through stage 4 chronic kidney disease, or unspecified chronic kidney disease; N18.9 Chronic kidney disease, unspecified
CPT/HCPCS: 93005; 85025; 80048; 36415; 83735; 85610; 80076; 84484; 71045; 96374; 99284; J3010

== ENCOUNTER 2023-11-12 07:13 | Day surgery (SDC) | payer OTHER ==
[2023-11-12] MEDS ORDERED: NA CHLORIDE 0.9% 500 ML ONE (07:38)
[2023-11-12 09:43] VITALS: BP 126/57; TEMP 97.5; O2SAT 100; BMI 25.2
== END 2023-11-12 12:30 | disposition home or self-care (01) ==
LOC: DS 07:13
PROVIDERS: ATTEND Internal Medicine
DX: D50.0 Iron deficiency anemia secondary to blood loss (chronic) (principal); D51.8 Other vitamin B12 deficiency anemias; K91.1 Postgastric surgery syndromes; Z71.89 Other specified counseling; L03.115 Cellulitis of right lower limb; I82.432 Acute embolism and thrombosis of left popliteal vein; D63.1 Anemia in chronic kidney disease
CPT/HCPCS: 36430; 86850; 86900; 86901; 86920; J7040; P9016

== ENCOUNTER 2023-11-18 08:05 | Day surgery (SDC) | payer OTHER ==
[2023-11-18 08:28] LABS: Absolute Basophils 0.1 K/uL (0-0.5); Absolute Eosinophils 0.4 K/uL (0-0.5); Absolute Monocytes 0.8 K/uL (0.1-1.3); Absolute Neutrophil 6.8 K/uL (1.8-8.0); Eosinophils % 4.6 % (0-4.4); Hemoglobin 9.2 g/dL (12.0-15.0); Lymphocytes % 10.9 % (15.3-44.8); MCH 35.4 pg (27.0-35.0); MCHC 34.1 g/dL (32.0-36.0); MCV 103.7 fL (80-100); MPV 8.2 fL (7.6-11.3); Monocytes % 8.4 % (3.3-12.3); Neutrophils % 75.1 % (41.7-73.7); Nucleated Red Blood Cells % 0.3 % (0-0); Platelets 371 thou/uL (152-406); RBC Red Blood Cell Count 2.61 M/uL (3.86-4.86); Red Cell Distribution Width 19.7 % (12.1-15.2)
[2023-11-18] MEDS ORDERED: CEFAZOLIN SODIUM 2 GM/VIAL ONE (08:38)
[2023-11-18] MEDS ORDERED: CEFAZOLIN SODIUM 1 GM/VIAL ONE (08:39)
[2023-11-18] MEDS ORDERED: Ringers Lactate 1,000 ML IV ONE (08:40)
[2023-11-18] MEDS ORDERED: propofoL 200 MG/20 ML VIAL IV ONE (09:54)
[2023-11-18] MEDS ORDERED: FENTANYL CITR 100 MCG/2 ML ONE (09:54)
[2023-11-18] MEDS ORDERED: LIDOCAINE 2% MPF 5 ML VIAL ONE (09:54)
[2023-11-18] MEDS ORDERED: ONDANSETRON 4 MG/2 ML VIAL ONE (09:54)
[2023-11-18] MEDS ORDERED: dexAMETHasone 4 MG/ML VIAL ONE (10:54)
[2023-11-18] MEDS ORDERED: EPHEDRINE SULF 50 MG/ML VIAL ONE (10:54)
--- NOTE | 2023-11-18 11:30 | P.BOP ---
Preoperative diagnosis: bilateral leg infected necrotic venous stasis ulcers Postoperative diagnosis: same Primary procedure: Excisional subQ debridement of bilateral infected necrotic ulcers Secondary procedure: Right 3.4 x 2.1x 0.4 cm, Left 3.1 x 3.8 x 0.8 cm Estimated blood loss: <10cc Specimen: culture Findings: as above Anesthesia: General Complications: None Transferred to: Recovery Room Condition: Good
[2023-11-18 14:50] VITALS: BP 127/62; TEMP 97; O2SAT 95
--- NOTE | 2023-11-18 15:15 | OP ---
Date of Procedure: 11/18/2023 Surgeon: Noel Escobar MD Preoperative Diagnosis: Bilateral leg infected necrotic venous stasis ulcers. Postoperative Diagnosis: Bilateral leg infected necrotic venous stasis ulcers. Procedure: Excisional subcutaneous debridement of bilateral infected necrotic ulcer on the right shahid e, 3.4 x 2.1 x 0.4 cm, on the left side is 3.1 x 3.8 x 0.8 cm. Estimated Blood Loss: Less than 10 cc. Specimen: Culture. Anesthesia: General plus local. Indications: This is the case of a 72-year-old patient with necrotic ulcer of bilateral lower extrem ities too tender to be debrided in office. She has used Santyl, is not moving forward, so we proceed ed to do the debridement under anesthesia with benefits, alternatives, and risks including, but not l imited to infection, bleeding, damage to adjacent structures, anesthesia complication, recurrence, GA , and even . She also understands this may not relieve any symptoms. She might need more than one surgical intervention. She understands also she will require wound care and compliance with broderick tments and a come in to visit us as an order. She understood, signed a consent the area of concern w as marked by me and the patient in the holding room. Description Of Procedure: The patient was brought to the operating room, placed in supine position. Anesthesia was without complication. Bilateral leg area was prepped and draped in a sterile fashion . A time-out was called. Local anesthesia was applied followed by sharp debridement with the help o f an 11 blade and also with the help of curette. Subcutaneous tissue was removed. Hemostasis was ob tained. Each ulcer was done individually and packed with wet-to-dry individually. The patient tolerated the procedure well. The patient was sent to recovery in stable condition. GREG/RAISAL Voice ID: [id number] Report ID: [id number]
--- NOTE | 2023-11-19 09:23 | DS ---
Date of Discharge: 11/18/2023 Procedure: Excisional subcutaneous debridement of bilateral infected necrotic ulcers. Diagnosis: Bilateral leg infected necrotic venous stasis ulcers. Disposition: Home. Condition: Stable. Discharge Instructions: [facility] 1 [facility]. Call for appointment. Ever Moon daily. GREG/VAL Voice ID: [id number] Report ID: [id number]
== END 2023-11-18 14:09 | disposition home or self-care (01) ==
LOC: OR 08:05
PROVIDERS: ATTEND Surgery
PROC: 0JBN0ZZ Excision of Right Lower Leg Subcutaneous Tissue and Fascia, Open Approach (ICD-10-PCS; 2023-11-18)
PROC: 0JBP0ZZ Excision of Left Lower Leg Subcutaneous Tissue and Fascia, Open Approach (ICD-10-PCS; principal; 2023-11-18 10:45)
DX: I87.313 Chronic venous hypertension (idiopathic) with ulcer of bilateral lower extremity (principal); I96 Gangrene, not elsewhere classified
CPT/HCPCS: 87070; 85025; 80048; 36415; 87205; 87075; 11042; J2704; J2001; J3010; J2405; J7120; J0690; 87077; 87186; J1100